=== PATIENT | male | born 1945 | race African-American/Black ===

== ENCOUNTER 2017-12-29 08:34 | Emergency (ER) | payer OTHER ==
[2017-12-29 08:42] VITALS: BMI 32.1
--- NOTE | 2017-12-29 09:19 | PDOC ---
History of Present Illness - General History Source: Patient Exam Limitations: No Limitations - History of Present Illness Initial Comments: 12/29/17 09:53 The patient is a 72 year old male with a significant PMH of renal disease ( dialysis T,Th,S), HTN, diabetes, and Coumadin use who presents to the emergency department with a food impaction beginning approximately yesterday afternoon. The patient reports eating a chicken salad yesterday and getting some chicken stuck in his esophagus. He reports he feels like he eats too fast. He reports associated nausea and vomiting with his food bolus. He denies chest pain or shortness of breath, but notes he feels the bolus stuck in his esophagus. He reports spitting up pinkish fluid since yesterday. The patient also notes he hasnt been speaking as clearly since yesterday. The patient has had a similar episode of food impaction about 2 years ago which required surgical intervention by Dr. Schneider on 02/09/2016. The patient denies chest pain, shortness of breath, headache and dizziness. Denies fever, chills, diarrhea and constipation. Denies dysuria, frequency, urgency and hematuria. Allergies: NKDA Past surgical history: Food impaction removal (02/09/2016). Social history: No reported cigarette, alcohol, or drug use. PCP: Dr. Narinder Can <Ángel Allison - Last Filed: 12/29/17 16:55> <Annamarie Morin - Last Filed: 01/01/18 12:50> - General Chief Complaint: Foreign Body (FB) Stated Complaint: CHOKING Time Seen by Provider: 12/29/17 09:17 Past History <Ángel Allison - Last Filed: 12/29/17 16:55> - Past Medical History Anemia: No Asthma: No Cancer: No Cardiac Disorders: Yes (TIA;RECURRENT A-FIB) CVA: No COPD: No CHF: No DVT: No Dementia: No Diabetes: Yes Dialysis: Yes (lt arm fistula, hd ,tu,thr,sat) GI Disorders: Yes (DYSPHAGIA,H/O ESOPHAGEAL FOOD DISIMPACTION) Disorders: No (BPH) HTN: Yes Hypercholesterolemia: Yes Liver Disease: No Seizures: No Thyroid Disease: No - Surgical History Abdominal Surgery: No Appendectomy: No Cardiac Surgery: No Cholecystectomy: No Lung Surgery: No Neurologic Surgery: No Orthopedic Surgery: No - Suicide/Smoking/Psychosocial Hx Smoking Status: Yes Smoking History: Never smoked Have you smoked in the past 12 months: No Number of Cigarettes Smoked Daily: 0 If you are a former smoker, when did you quit?: Over 1 years ago Information on smoking cessation initiated: No Hx Alcohol Use: No Drug/Substance Use Hx: No Substance Use Type: None Hx Substance Use Treatment: No <Annamarie Morin - Last Filed: 01/01/18 12:50> - Past Medical History Allergies/Adverse Reactions: Allergies Allergy/AdvReac Type Severity Reaction Status Date / Time No Known Drug Allergies Allergy Unknown Verified 12/29/17 08:37 Home Medications: Ambulatory Orders Dutasteride [Avodart] 0.5 mg PO DAILY #0 capsule 01/05/14 Sevelamer Carbonate [Renvela -] 800 mg PO TID #0 tab 01/05/14 Simvastatin [Zocor -] 10 mg PO HS #0 tablet 01/05/14 Pantoprazole Sodium [Protonix -] 40 mg PO DAILY #30 tablet.ec 02/15/16 Warfarin Na [Coumadin -] 5 mg PO DAILY@1800 #7 tablet 02/15/16 Glipizide [Glipizide ER] 10 mg PO BID 07/14/16 Metoprolol Tartrate [Lopressor -] 50 mg PO BID 07/14/16 Cinacalcet HCl [Sensipar] 30 mg PO DAILY 12/29/17 Review of Systems - Review of Systems Able to Perform ROS?: Yes Comments:: 12/29/17 09:53 GENERAL/CONSTITUTIONAL: No fever or chills. No weakness. HEAD, EYES, EARS, NOSE AND THROAT: No change in vision. No ear pain or discharge. No sore throat. CARDIOVASCULAR: No chest pain or shortness of breath. RESPIRATORY: No cough, wheezing, or hemoptysis. GASTROINTESTINAL: (+) Food bolus in esophagus. (+) Nausea. (+) Vomiting with pinkish discharge. No diarrhea or constipation. GENITOURINARY: No dysuria, frequency, or change in urination. MUSCULOSKELETAL: No joint or muscle swelling or pain. No neck or back pain. SKIN: No rash NEUROLOGIC: No headache, vertigo, loss of consciousness, or change in strength/ sensation. ENDOCRINE: No increased thirst. No abnormal weight change. HEMATOLOGIC/LYMPHATIC: No anemia, easy bleeding, or history of blood clots. ALLERGIC/IMMUNOLOGIC: No hives or skin allergy. <Ángel Allison - Last Filed: 12/29/17 16:55> *Physical Exam - Vital Signs Last Vital Signs Temp Pulse Resp BP Pulse Ox 68 18 139/63 100 12/29/17 08:38 12/29/17 08:38 12/29/17 08:38 12/29/17 08:38 <Ángel Allison - Last Filed: 12/29/17 16:55> - Vital Signs Last Vital Signs Temp Pulse Resp BP Pulse Ox 68 18 139/63 100 12/29/17 08:38 12/29/17 08:38 12/29/17 08:38 12/29/17 08:38 - Physical Exam Comments: GENERAL: Awake, alert, and fully oriented. Appears anxious. HEAD: No signs of trauma EYES: PERRLA, EOMI, sclera anicteric, conjunctiva clear ENT: Auricles normal inspection, hearing grossly normal, nares patent, oropharynx clear without exudates. Moist mucosa NECK: Normal ROM, supple, no lymphadenopathy, JVD, or masses LUNGS: Breath sounds equal, clear to auscultation bilaterally. No wheezes, and no crackles HEART: Regular rate and rhythm, normal S1 and S2, no murmurs, rubs or gallops ABDOMEN: Soft, nontender, normoactive bowel sounds. No guarding, no rebound. No masses EXTREMITIES: Normal range of motion, no edema. No clubbing or cyanosis. No cords, erythema, or tenderness NEUROLOGICAL: Cranial nerves II through XII grossly intact. Normal gait. Motor and sensation intact. SKIN: Warm, Dry, normal turgor, no rashes or lesions noted. <Annamarie Morin - Last Filed: 01/01/18 12:50> Heart Score/ECG Review - ECG Impressions Comment:: EKG read 14:42- NSR with rate 70 bpm, no acute ST/T changes. +PVC. <Annamarie Morin - Last Filed: 01/01/18 12:50> ED Treatment Course - LABORATORY CBC & Chemistry Diagram: 12/29/17 09:24 12/29/17 09:24 <Ángel Allison - Last Filed: 12/29/17 16:55> - LABORATORY CBC & Chemistry Diagram: 12/29/17 09:24 12/29/17 09:24 <Annamarie Morin - Last Filed: 01/01/18 12:50> Medical Decision Making - Medical Decision Making Pt initially presented with voice changes, regurgitating intermittently, unable to eat. However, while awaiting labs and subsequently GI evaluation, he improved spontaneously. He was able to tolerate PO when Dr. Schneider arrived, stable for DC home. <Annamarie Morin - Last Filed: 01/01/18 12:50> *DC/Admit/Observation/Transfer - Attestations Scribe Attestion: 12/29/17 09:53 Documentation prepared by Ángel Allison, acting as medical staff coordinator for Annamarie Morin MD. <Ángel Allison - Last Filed: 12/29/17 16:55> - Discharge Dispostion Admit: No <Annamarie Moirn - Last Filed: 01/01/18 12:50> Diagnosis at time of Disposition: Dysphagia Qualifiers: Dysphagia type: unspecified Qualified Code(s): R13.10 - Dysphagia, unspecified - Discharge Dispostion Disposition: HOME Condition at time of disposition: Improved - Referrals Referrals: Narinder Can MD [Primary Care Provider] - - Patient Instructions Printed Discharge Instructions: Ste[employer] [facility] - Post Discharge Activity
[2017-12-29 10:09] LABS: HEMATOCRIT 32.5 % (35.4-49); HEMOGLOBIN 10.6 GM/dL (11.7-16.9); MCH 33.9 pg (25.7-33.7); MCHC 32.6 g/dl (32.0-35.9); MEAN PLT VOLUME 8.4 fl (7.5-11.1); RBC 3.13 M/mm3 (4.00-5.60); RDW 18.9 % (11.9-15.9)
[2017-12-29 10:12] LABS: WHITE BLOOD COUNT 20.5 K/mm3 (4.0-10.0)
[2017-12-29 10:25] LABS: INR 1.81 (0.82-1.09); PROTHROMBIN TIME (PATIENT) 20.5 SEC (9.98-11.88)
[2017-12-29 10:43] LABS: ALBUMIN 3.9 g/dl (3.4-5.0); ALK PHOS 116 U/L (45-117); ANION GAP 9 (8-16); BILIRUBIN,TOTAL 0.6 mg/dL (0.2-1.0); BLOOD UREA NITROGEN 39 mg/dL (7-18); CALCIUM 8.7 mg/dL (8.5-10.1); CHLORIDE 101 mmol/L (98-107); CO2 28 mmol/L (21-32); GLUCOSE,RANDOM 124 mg/dL (74-106); SGPT/ALT 18 U/L (12-78); SODIUM 138 mmol/L (136-145); TOT PROT 7.9 g/dl (6.4-8.2)
[2017-12-29 11:27] LABS: PLATELET COUNT 220 K/MM3 (134-434); PLATELET ESTIMATE ADEQUATE
[2017-12-29 13:09] LABS: CREATININE 8.6 mg/dL (0.7-1.3)
[2017-12-29 13:23] LABS: SGOT/AST 38 U/L (15-37)
--- NOTE | 2017-12-29 14:36 | CON.GI ---
Consult Consult Specialty:: GI Referred by:: Dr. Annamarie Morin Reason for Consultation:: Dysphagia: suspected food impaction - History of Present Illness Chief Complaint: I was having problems swallowing History of Present Illness: 72M presenting to the ER (taken by his ) for evaluation of difficulty swallowing. He tells me that after eating chicken salad (consisting of chicken breast, no bones) and salad, he began experiencing difficulty swallowing and kept bringing up secretions. He was unable to sleep and kept trying to make himself vomit. It persisted into the morning prompting his evaluation in the ER. He states getting to the ER around 8am and had been trying to make himself vomit, and for the last 3 hours he "feels fine". Mr. Morocho has a history of food impactions. One episode occurred remotely while the most recent occurred at [facility] 02/02: He underwent emergent EGD 02/08/16 at which time the esophagus was disimpacted. Post procedure he did have respiratory distress, was reintubated and had a prolonged hospitalization. He was treated for aspiration pneumonia. 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 He followed up in office 07/05 and underwent follow-up EGD and colonoscopy (for follow-up of a positive stool cologuard test) 07/14/16. EGD failed to reveal any significant pathology and colonoscopy led to the removal of a tubular adenoma. Biopsies of the distal esophagus failed to reveal evidence of eosinophilic esophagitis. He was advised to eat small portioned well chewed meals with avoidance of bulk meats and breads. He denies any chest pain, shortness of breath, abdominal pain, nausea. He was able to drink a cup of water as I evaluated him without difficulty and was able to speak in full sentences. - History Source History Provided By: Patient, Family Member Limitations to Obtaining History: No Limitations - Past Medical History METAL SORTER: Yes: TIA Cardio/Vascular: Yes: AFIB, HTN Gastrointestinal: Yes: Other (Tubular Adenoma (subcentimeter) removed 07/05, history of food impactions as in HPI) Renal/: Yes: Renal Failure, Hemodialysis (//Mon) - Past Surgical History Past Surgical History: Yes: AV Fistula/Graft (left arm) - Alcohol/Substance Use Hx Alcohol Use: Yes (quit 30 yrs prior) - Smoking History Smoking history: Former smoker (quit 30 + yrs prior) Have you smoked in the past 12 months: No Aproximately how many cigarettes per day: 0 If you are a former smoker, when did you quit?: Over 1 years ago - Social History Usual Living Arrangement: With Spouse ADL: Independent Occupation: Retired from [employer] of : [employer] History of Recent Travel: No Home Medications - Allergies Allergies/Adverse Reactions: Allergies Allergy/AdvReac Type Severity Reaction Status Date / Time No Known Drug Allergies Allergy Unknown Verified 12/29/17 08:37 - Home Medications Home Medications: Ambulatory Orders Dutasteride [Avodart] 0.5 mg PO DAILY #0 capsule 01/05/14 Sevelamer Carbonate [Renvela -] 800 mg PO TID #0 tab 01/05/14 Simvastatin [Zocor -] 10 mg PO HS #0 tablet 01/05/14 Pantoprazole Sodium [Protonix -] 40 mg PO DAILY #30 tablet.ec 02/15/16 Warfarin Na [Coumadin -] 5 mg PO DAILY@1800 #7 tablet 02/15/16 Glipizide [Glipizide ER] 10 mg PO BID 07/14/16 Metoprolol Tartrate [Lopressor -] 50 mg PO BID 07/14/16 Cinacalcet HCl [Sensipar] 30 mg PO DAILY 12/29/17 Family Disease History - Family Disease History Family Disease History: Other: Father (: 70's possible pancreatic cancer), Mother (: diabetic complications), Brother (2, 1 with Alzheimer's), Son (3, healthy) Other Family History: No family history of colorectal cancer or other GI malignancy Review of Systems - Review of Systems Constitutional: denies: Chills, Unintentional Wgt. Loss Cardiovascular: denies: Chest Pain Respiratory: denies: SOB Gastrointestinal: denies: Abdominal Pain, Rectal Bleeding Physical Exam-GI Vital Signs: Vital Signs Temperature Pulse Rate 68 12/29/17 08:38 Respiratory Rate 18 12/29/17 08:38 Blood Pressure 139/63 12/29/17 08:38 O2 Sat by Pulse Oximetry (%) 100 12/29/17 08:38 Constitutional: Yes: Calm Eyes: No: Sclera Icterus Cardiovascular: Yes: Regular Rate and Rhythm. No: Murmur Respiratory: Yes: CTA Bilaterally Gastrointestinal Inspection: No: Distention ...Auscultate: Yes: Normoactive Bowel Sounds ...Palpate: No: Hepatomegaly, Splenomegaly, Tenderness ...Percussion: No: Tympanitic Edema: No (Trace LE edema L>R) Neurological: Yes: Alert, Oriented Labs: CBC, BMP 12/29/17 09:24 12/29/17 09:24 INR, PTT INR 1.81 (0.82-1.09) H D 12/29/17 09:24 Imaging - Results X-ray: Report Reviewed Problem List - Problems (1) Dysphagia Assessment/Plan: Clincially Mr. Morocho if well appearing, maintaining his own secretions, speaking in full sentences and able to tolerate water challenge at bedside. Emergent endoscopy has been deferred at this time. I advised that for the next three days he should stay on a soft (mashed potato consistency) diet and should be maintained in the future (as was discussed previously) by having small portioned well chewed meals with avoidance of bulk meats and breads. I gave him my office information to arrange follow-up for the end of the month. Continue Protonix 40mg once daily for now. Code(s): R13.10 - DYSPHAGIA, UNSPECIFIED Qualifiers: Dysphagia type: unspecified Qualified Code(s): R13.10 - Dysphagia, unspecified (2) Leukocytosis Assessment/Plan: Patient with what appears to be chronic leukocytosis and macrocytosis Unclear if he has been evaluated by manager communication in the past but should be considered. Advised he discuss things further with his PMD Code(s): D72.829 - ELEVATED WHITE BLOOD CELL COUNT, UNSPECIFIED (3) Subtherapeutic anticoagulation Assessment/Plan: Discussed with Dr. Morin. Will need anticoagulation adjusted by PMD Code(s): Z51.81 - ENCOUNTER FOR THERAPEUTIC DRUG LEVEL MONITORING; Z79.01 - [facility] (CURRENT) USE OF ANTICOAGULANTS
[2017-12-29 14:58] VITALS: BP 118/59; PULSE 76
--- NOTE | 2017-12-30 08:53 | EKG ---
Test Reason : Blood Pressure : / mmHG Vent. Rate : 070 BPM Atrial Rate : 070 BPM P-R Int : 208 ms QRS Dur : 090 ms QT Int : 410 ms P-R-T Axes : 014 -32 044 degrees QTc Int : 442 ms SINUS RHYTHM WITH OCCASIONAL PREMATURE VENTRICULAR COMPLEXES LEFT AXIS DEVIATION ABNORMAL ECG WHEN COMPARED WITH ECG OF 11-FEB-2016 18:52, SINUS RHYTHM HAS REPLACED ATRIAL FIBRILLATION VENT. RATE HAS DECREASED BY [address] NO LONGER DEPRESSED IN ANTEROLATERAL LEADS Confirmed by DO GORE, NICK ([id number]) on 12/30/2017 8:52:22 AM Referred By: Confirmed By:NICK LEI MD
== END 2017-12-29 15:25 | disposition home or self-care (01) ==
LOC: JER 08:34
DX: R13.19 Other dysphagia (principal); D72.829 Elevated white blood cell count, unspecified; I48.91 Unspecified atrial fibrillation; Z79.01 Long term (current) use of anticoagulants; I12.0 Hypertensive chronic kidney disease with stage 5 chronic kidney disease or end stage renal disease; N18.6 End stage renal disease; N17.8 Other acute kidney failure; Z99.2 Dependence on renal dialysis; Z87.891 Personal history of nicotine dependence; E78.00 Pure hypercholesterolemia, unspecified
CPT/HCPCS: 36415; 71045-TC; 80053; 85025; 85610; 86850; 86900; 86901; 93005; 93010; 99284-25

== ENCOUNTER 2018-11-27 14:23 | Inpatient (IN) | payer OTHER ==
--- NOTE | 2018-11-27 14:59 | PDOC ---
History of Present Illness - General Chief Complaint: Shortness of Breath Stated Complaint: SOB Time Seen by Provider: 11/27/18 14:59 History Source: Patient Exam Limitations: No Limitations - History of Present Illness Initial Comments: 11/27/18 15:43 73 year old male with PMH CKD, HD (//), HTN, DM, atrial fibrillation on coumadin, TIA, dysphagia, BPH presented to ED for shortness of breath since today. Pt admitted to nonproductive cough, chills, sweats, nasal congestion x3 days. PT recieved all but the last 30 minutes of dialysis today, when he began to feel short of breath, then dialysis was stopped and he was sent to the ED. Pt denied chest pain, lower extremity swelling, abdominal pain, nausea, vomiting , diarrhea, fever. Pt stated x3 weeks ago his fistula became infected and bled, he had it replaced at [facility], and had a blood transfusion. Allergies: NKDA PCP: Dr. Can Past History - Past Medical History Allergies/Adverse Reactions: Allergies Allergy/AdvReac Type Severity Reaction Status Date / Time No Known Drug Allergies Allergy Unknown Verified 12/29/17 08:37 Home Medications: Ambulatory Orders Dutasteride [Avodart] 0.5 mg PO DAILY #0 capsule 01/05/14 Sevelamer Carbonate [Renvela -] 800 mg PO TID #0 tab 01/05/14 Simvastatin [Zocor -] 10 mg PO HS #0 tablet 01/05/14 Pantoprazole Sodium [Protonix -] 40 mg PO DAILY #30 tablet.ec 02/15/16 Glipizide [Glipizide ER] 10 mg PO BID 07/14/16 Metoprolol Tartrate [Lopressor -] 50 mg PO BID 07/14/16 Cinacalcet HCl [Sensipar] 30 mg PO DAILY 12/29/17 Warfarin Na [Coumadin -] 2.5 mg PO DAILY@1800 11/27/18 Anemia: No Asthma: No Cancer: No Cardiac Disorders: Yes (TIA;RECURRENT A-FIB) CVA: No COPD: No CHF: No DVT: No Dementia: No Diabetes: Yes Dialysis: Yes (lt arm fistula, hd ,tu,thr,sat) GI Disorders: Yes (DYSPHAGIA,H/O ESOPHAGEAL FOOD DISIMPACTION) Disorders: No (BPH) HTN: Yes Hypercholesterolemia: Yes Liver Disease: No Seizures: No Thyroid Disease: No - Surgical History Abdominal Surgery: No Appendectomy: No Cardiac Surgery: No Cholecystectomy: No Lung Surgery: No Neurologic Surgery: No Orthopedic Surgery: No - Suicide/Smoking/Psychosocial Hx Smoking Status: Yes Smoking History: Never smoked Have you smoked in the past 12 months: No Number of Cigarettes Smoked Daily: 0 If you are a former smoker, when did you quit?: Over 1 years ago Hx Alcohol Use: No Drug/Substance Use Hx: No Substance Use Type: None Hx Substance Use Treatment: No Review of Systems - Review of Systems Able to Perform ROS?: Yes Comments:: 11/27/18 15:48 General: admitted to chills/sweats. denied fever, generalized weakness. HEENT: admitted to nasal congestion. denied sore throat, rhinorrhea, ear pain. Heart: denied chest pain, palpitations, syncope, lower extremity swelling, diaphoresis. Respiratory: admitted to shortness of breath, cough. denied sputum production, hemoptysis. Abdomen: denied abdominal pain, nausea, vomiting, diarrhea, constipation, blood in stool. : denied dysuria, increased urinary frequency, hematuria, urinary incontinence , flank pain. Back: denied back pain. Musculoskeletal: denied joint pain, muscle pain, joint swelling. Neurological: denied headache, dizziness, numbness, tingling, weakness. Skin: denied rash, laceration, abrasion. *Physical Exam - Physical Exam Comments: 11/27/18 15:49 Constitutional: Well-nourished, Well-developed, appearing stated age. HEENT: head is normocephalic, atraumatic. EOMI. PERRLA. Neck: supple. Full ROM. Heart: regular rhythm. no murmurs, rubs or gallops. Lungs: crakles to left base. no rhonchi or wheezing. no stridor. Abdomen: soft, nontender. normal bowel sounds. no rebound, guarding, masses. Extremities: Peripheral pulses intact. No lower extremity edema. Neurological: CN 2-12 grossly intact. Moves all four extremities. Psych: awake, alert, oriented x3. Follows commands. Answers questions appropriately. Vital Signs - Vital Signs #3 Blood Pressure: 91/45 MAP: 60 BP Location: Right Arm Blood Pressure Position: Supine Pulse Rate: 75 Respiratory Rate: 18 ED Treatment Course - LABORATORY CBC & Chemistry Diagram: 11/27/18 15:50 11/27/18 18:35 Medical Decision Making - Medical Decision Making 11/27/18 15:54 73 year old male with above PMH presented to ED for SOB associated with nonproductive cough, chills, sweats, nasal congestion. Initial Vital Signs Temp Pulse Resp BP Pulse Ox 99.8 F H 91 H 22 H 111/54 L 96 11/27/18 15:01 11/27/18 15:01 11/27/18 15:01 11/27/18 15:01 11/27/18 15:01 Febrile - Pending rectal temp Borderline tachycardia. Tachypnea. Mild hypotension. No hypoxia on 2L. - SpO2 90% on room air. Labs ordered: CBC, CMP, troponin, blood cultures, UA/UC, VBG Medications ordered: O2 Imaging ordered: CXR EKG performed at 1533: rate 87, regular rhythm, left axis, QTc 476, 1st degree AV block, PAC, flattening T II, III, aVF, aVL. 11/27/18 16:14 CBC WBC 11.5 K/mm3 (4.0-10.0) H 11/27/18 15:50 RBC 3.01 M/mm3 (4.00-5.60) L 11/27/18 15:50 Hgb 10.5 GM/dL (11.7-16.9) L 11/27/18 15:50 Hct 30.7 % (35.4-49) L 11/27/18 15:50 MCV 101.8 fl (80-96) H 11/27/18 15:50 MCH 34.9 pg (25.7-33.7) H 11/27/18 15:50 MCHC 34.3 g/dl (32.0-35.9) 11/27/18 15:50 RDW 21.1 % (11.9-15.9) H 11/27/18 15:50 Plt Count 131 K/MM3 (134-434) L D 11/27/18 15:50 MPV 8.0 fl (7.5-11.1) 11/27/18 15:50 Absolute Neuts (auto) 8.3 K/mm3 (1.5-8.0) H 11/27/18 15:50 Neutrophils % 72.0 % (42.8-82.8) 11/27/18 15:50 Lymphocytes % 7.9 % (8-40) L 11/27/18 15:50 Monocytes % 18.9 % (3.8-10.2) H 11/27/18 15:50 Eosinophils % 0.8 % (0-4.5) 11/27/18 15:50 Basophils % 0.4 % (0-2.0) 11/27/18 15:50 Nucleated RBC % 0 % (0-0) 11/27/18 15:50 Mild leukocytosis with left shift. Mild macrocytic anemia, at baseline. Mild metabolic alkalosis. Ph 7.46. CXR report: cardiomegaly. mild congestion. 11/27/18 17:24 CMP Sodium 136 mmol/L (136-145) 11/27/18 15:36 Potassium 4.4 mmol/L (3.5-5.1) 11/27/18 15:36 Chloride 102 mmol/L (98-107) 11/27/18 15:36 Carbon Dioxide 27 mmol/L (21-32) 11/27/18 15:36 Anion Gap 7 MMOL/L (8-16) L 11/27/18 15:36 BUN 35 mg/dL (7-18) H 11/27/18 15:36 Creatinine 7.1 mg/dL (0.55-1.3) H 11/27/18 15:36 Creat Clearance w eGFR 7.63 (>60) 11/27/18 15:36 Random Glucose 46 mg/dL (74-106) L* 11/27/18 15:36 Lactic Acid 1.3 mmol/L (0.4-2.0) 11/27/18 15:50 Calcium 8.6 mg/dL (8.5-10.1) 11/27/18 15:36 Total Bilirubin 0.6 mg/dL (0.2-1) 11/27/18 15:36 AST 45 U/L (15-37) H 11/27/18 15:36 ALT 26 U/L (13-61) 11/27/18 15:36 Alkaline Phosphatase 99 U/L (45-117) 11/27/18 15:36 Troponin I 0.29 ng/ml (0.00-0.05) H 11/27/18 15:36 B-Natriuretic Peptide 23080.0 pg/ml (5-125) H 11/27/18 15:50 Total Protein 6.8 g/dl (6.4-8.2) 11/27/18 15:36 Albumin 2.9 g/dl (3.4-5.0) L 11/27/18 15:36 Normal electrolytes. Elevated Cr, Hx CKD/HD, at baseline. Hypoglycemia, pt given dextrose. Elevated troponin, Hx CKD/HD. Elevated BNP, Hx CKD/HD. Influenza testing negative. Rectal temp 100.6F Pt to be admitted for hypoxia, fever, mild fluid overload. Medications ordered: Vancomycin, Zosyn, Tylenol 11/27/18 20:45 Repeat troponin 1.26 Repeat EKG: rate 66, regular rhythm, left axis, 1st degree AV block, QTc 488, continued flattening of T in II, II, aVF, aVL, no large changes from prior. Medications ordered: ASA Pt reported no chest pain, improving shortness of breath. Dr. Palm paged. Vital Signs Pulse Rate 75 11/27/18 21:01 Respiratory Rate 18 11/27/18 21:01 Blood Pressure 91/45 L 11/27/18 21:01 O2 Sat by Pulse Oximetry (%) 100 11/27/18 21:01 Increasing hypotension. Pt is fluid overloaded. Will continue to monitor and hold fluids at this time. 11/27/18 21:07 Dr. Mendez paged. 11/27/18 21:[address] Mendez about the case, he recs: 1) ASA 325 mg 2) Plavix 300 mg 3) Lopressor 25 mg BID 4) ICU admission - Above one time doses ordered. 11/27/18 21:17 ICU paged. 11/27/18 21:[address] Palm about the updates. 11/27/18 21:38 Vital Signs Pulse Rate 75 11/27/18 21:38 Respiratory Rate 18 11/27/18 21:38 Blood Pressure 91/45 L 11/27/18 21:38 O2 Sat by Pulse Oximetry (%) 100 11/27/18 21:38 BP stable. Pt reported no chest pain. 11/27/18 21:51 I spoke with the ICU resident, who stated he will come down and evaluate the patient. 11/27/18 21:52 Pt signed out to Dr. Peterson, who will observe the patient while he is in the Emergency Department. *DC/Admit/Observation/Transfer Diagnosis at time of Disposition: Hypoxia, Leukocytosis, Fever, NSTEMI (non-ST elevated myocardial infarction) - Discharge Dispostion Condition at time of disposition: Stable Decision to Admit order: Yes - Referrals - Patient Instructions - Post Discharge Activity Vital Signs - Vital Signs Pulse Rate: 68 Respiratory Rate: 22 Blood Pressure: 98/58 BP Location: Right Arm Blood Pressure Position: Supine
--- NOTE | 2018-11-27 15:58 | PDOC ---
Attending Attestation - HPI HPI: 11/27/18 19:01 The patient is a 73 year old male with a significant past medical history of renal disease (dialysis TThSa, had 3 hrs of dialysis, removed 350ml of fluid), hypertension, diabetes, afib (on coumadin), hypercholesterolemia, TIA, and dysphagia who presents to the emergency department with shortness of breath since earlier today. The patient reports that he was at his dialysis treatment today when he began to experience his shortness of breath. He states that he was able to complete most of his dialysis just not the last 30 minutes. The patient also reports an associated non productive but congested sounding cough for 3 days as well as chills and sweats today. The patient endorses some lower extremity swelling the past few days. Denies any chest pain, abd pain, fever, chills, nausea, vomiting, diarrhea, constipation or urinary symptoms. The patient denies any other symptoms or complaints. Documentation prepared by Esvin Fleming, acting as paramedical aide for Dre Enrique MD. <Esvin Fleming - Last Filed: 11/27/18 19:01> - Resident Resident Name: Regina Terry - ED Attending Attestation I have performed the following: I have examined & evaluated the patient, The case was reviewed & discussed with the resident, I agree w/resident's findings & plan, Exceptions are as noted - Physicial Exam PE: 11/27/18 17:26 GENERAL: The patient is awake, alert, and fully oriented, Nontoxic - in no acute distress. HEAD: Normocephalic, atraumatic. EYES: extraocular movements intact, sclera anicteric, conjunctiva clear. ENT: Normal voice, Moist mucous membranes. NECK: Normal range of motion, supple LUNGS: Scattered rales diffusely left greater than right, HEART: Regular rate and rhythm, normal S1 and S2 without murmur, rub or gallop. ABDOMEN: Soft, nontender, normoactive bowel sounds. No guarding, no rebound. . No CVA tenderness EXTREMITIES: Normal range of motion, +1 pitting edema bilaterally in LE NEUROLOGICAL: No facial assymetry, Normal speech, moving all 4 ext spontaneusly and symmetrically PSYCH: Normal mood, normal affect. SKIN: Warm, Dry, normal turgor, - Critical Care Time Total Critical Care Time: 45 Critical Care Statement: The care of this patient involved high complexity decision making to prevent further life threatening deterioration of the patient 's condition and/or to evaluate & treat vital organ system(s) failure or risk of failure. - Medical Decision Making 11/27/18 15:58 73y hx of CKD(//, had almost complete dialysis today -30 min), HTN, DM, atrial fibrillation on coumadin, TIA, dysphagia, BPH, stents with a complaint of shortness of breath. The patient states that he's been coughing with congestion the past several days without any social or fevers, chest pain, nausea, vomiting, diaphoresis. It and does endorse some mild nasal congestion in addition to his cough. He was getting dialysis when he started feeling shortness of breath patient mentions that the dialysis staff thought his heart rate was also elevated at during this episode of shortness of breath. He feels better currently. The patient's vitals noted for hypoxia, low-grade fever. Differential for the patient's symptoms includes pneumonia, influenza, CHF, ckd , acs Will check labs will obtain chest x-ray EKG Will reassess 11/27/18 17:29 Chest x-ray suggestive of CHF trop borderline, may be due to his renal insufficiency as patient is febrile will give antibiotics as the patient is immunocompromised will admit for further management 11/27/18 20:46 2nd trop elevated, it is possible that his initial episoe of SOB may have beeen a minor cardiac event no cp currently feels sob improved relative to presentation - i nno clinical distress, resting in stretcher with bedsdie. awaiting repeat ekg will give asa will dw cards <Dre Enrique - Last Filed: 12/06/18 07:59> Heart Score/ECG Review - ECG Impressions Comment:: 11/27/18 17:30 Twelve-lead EKG was performed and reviewed by me. There is normal sinus rhythm with a normal rate. Rate of 87 First degree AV block Left axis deviation Nonspecific ST wave changes QTc interval of 476 <Dre Enrique - Last Filed: 12/06/18 07:59>
[2018-11-27 16:04] LABS: BASO % 0.4 % (0-2.0); EOS % 0.8 % (0-4.5); HEMATOCRIT 30.7 % (35.4-49); HEMOGLOBIN 10.5 GM/dL (11.7-16.9); LYMPH % 7.9 % (8-40); MCH 34.9 pg (25.7-33.7); MCHC 34.3 g/dl (32.0-35.9); MEAN CELL VOLUME 101.8 fl (80-96); MONO % 18.9 % (3.8-10.2); PLATELET COUNT 131 K/MM3 (134-434); RBC 3.01 M/mm3 (4.00-5.60); RDW 21.1 % (11.9-15.9); WHITE BLOOD COUNT 11.5 K/mm3 (4.0-10.0)
[2018-11-27 16:07] LABS: VENOUS PC02 42.5 mmHg (38-52); VENOUS PH 7.46 (7.32-7.42); VENOUS PO2 38.7 mmHg (28-48)
[2018-11-27 16:17] LABS: INR 3.6 (0.83-1.09)
[2018-11-27 16:49] LABS: ALBUMIN 2.9 g/dl (3.4-5.0); ALK PHOS 99 U/L (45-117); ANION GAP 7 MMOL/L (8-16); BILIRUBIN,TOTAL 0.6 mg/dL (0.2-1); BLOOD UREA NITROGEN 35 mg/dL (7-18); CALCIUM 8.6 mg/dL (8.5-10.1); CHLORIDE 102 mmol/L (98-107); CO2 27 mmol/L (21-32); CREATININE 7.1 mg/dL (0.55-1.3); POTASSIUM 4.4 mmol/L (3.5-5.1); SGOT/AST 45 U/L (15-37); SGPT/ALT 26 U/L (13-61); SODIUM 136 mmol/L (136-145); TOT PROT 6.8 g/dl (6.4-8.2)
[2018-11-27 17:02] LABS: GLUCOSE,RANDOM 46 mg/dL (74-106)
[2018-11-27] MEDS ORDERED: DEXTROSE 50%-WATER - 25 GM/50 ML VIAL IVPUSH ONE (17:02)
[2018-11-27] MEDS ORDERED: VANCOMYCIN 1,000 MG in DEXTROSE 5%-WATER - 250 ML IVPB ONE (17:28)
[2018-11-27] MEDS ORDERED: PIPERACILLIN/TAZOB 2.25 GM 2.25 GM in DEXTROSE 5%-WATER - 50 ML IVPB ONE (17:29)
[2018-11-27] MEDS ORDERED: ACETAMINOPHEN 1000 MG/100 ML VIAL (NON FORMULARY) IVPB ONE (17:29)
[2018-11-27 17:36] LABS: ANISOCYTOSIS 1+
[2018-11-27 20:02] LABS: ANION GAP 9 MMOL/L (8-16); BLOOD UREA NITROGEN 36 mg/dL (7-18); CALCIUM 8.3 mg/dL (8.5-10.1); CHLORIDE 101 mmol/L (98-107); CO2 26 mmol/L (21-32); GLUCOSE,RANDOM 158 mg/dL (74-106); POTASSIUM 3.7 mmol/L (3.5-5.1); SODIUM 136 mmol/L (136-145)
[2018-11-27 20:24] LABS: CREATININE 7.5 mg/dL (0.55-1.3)
[2018-11-27] MEDS ORDERED: ASPIRIN 81 MG CHEWABLE TABLETS PO ONE ×2 (20:26→20:53)
[2018-11-27] MEDS ORDERED: ASPIRIN 81 MG CHEWABLE TABLETS ONE ×2 (20:50→20:56)
[2018-11-27] MEDS ORDERED: CLOPIDOGREL BISULFATE 300 MG TABLET PO ONE (21:13)
[2018-11-27] MEDS ORDERED: METOPROLOL TARTRATE 25 MG TABLET (FP) PO ONE (21:13)
--- NOTE | 2018-11-27 21:15 | CON.CARD ---
Consult - History of Present Illness History of Present Illness: The patient is a 73 year old male with a significant past medical history of renal disease (dialysis TThSa, had 3 hrs of dialysis, removed 350ml of fluid), hypertension, diabetes, afib (on coumadin), hypercholesterolemia, TIA, and dysphagia who presents to the emergency department with shortness of breath since earlier today. The patient reports that he was at his dialysis treatment today when he began to experience his shortness of breath. He states that he was able to complete most of his dialysis just not the last 30 minutes. The patient also reports an associated non productive but congested sounding cough for 3 days as well as chills and sweats today. The patient endorses some lower extremity swelling the past few days. Denies any chest pain, abd pain, fever, chills, nausea, vomiting, diarrhea, constipation or urinary symptoms. The patient denies any other symptoms or complaints. 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 Cardio/Vascular: Yes: AFIB, HTN Gastrointestinal: Yes: Other (Tubular Adenoma (subcentimeter) removed 07/05, history of food impactions as in HPI) Renal/: Yes: Renal Failure, Hemodialysis (//Mon) - Past Surgical History Past Surgical History: Yes: AV Fistula/Graft (left arm) - Alcohol/Substance Use Hx Alcohol Use: No - Smoking History Smoking history: Never smoked Have you smoked in the past 12 months: No Aproximately how many cigarettes per day: 0 If you are a former smoker, when did you quit?: Over 1 years ago - Social History Usual Living Arrangement: With Spouse ADL: Independent Occupation: Retired from [employer] History of Recent Travel: No Home Medications - Allergies Allergies/Adverse Reactions: Allergies Allergy/AdvReac Type Severity Reaction Status Date / Time No Known Drug Allergies Allergy Unknown Verified 12/29/17 08:37 - Home Medications Home Medications: Ambulatory Orders Dutasteride [Avodart] 0.5 mg PO DAILY #0 capsule 01/05/14 Sevelamer Carbonate [Renvela -] 800 mg PO TID #0 tab 01/05/14 Simvastatin [Zocor -] 10 mg PO HS #0 tablet 01/05/14 Pantoprazole Sodium [Protonix -] 40 mg PO DAILY #30 tablet.ec 02/15/16 Glipizide [Glipizide ER] 10 mg PO BID 07/14/16 Metoprolol Tartrate [Lopressor -] 50 mg PO BID 07/14/16 Cinacalcet HCl [Sensipar] 30 mg PO DAILY 12/29/17 Warfarin Na [Coumadin -] 2.5 mg PO DAILY@1800 11/27/18 Family Disease History - Family Disease History Family Disease History: Other: Father (: 70's possible pancreatic cancer), Mother (: diabetic complications), Brother (2, 1 with Alzheimer's), Son (3, healthy) Vital Signs: Vital Signs Temperature 100.6 F H 11/27/18 16:02 Pulse Rate 75 11/27/18 21:13 Respiratory Rate 18 11/27/18 21:13 Blood Pressure 91/45 L 11/27/18 21:13 O2 Sat by Pulse Oximetry (%) 100 11/27/18 20:59 - Other Data Labs, Other Data: CBC, BMP 11/27/18 15:50 11/27/18 18:48 INR, PTT INR 3.60 (0.83-1.09) H 11/27/18 15:50 Troponin, BNP 11/27/18 11/27/18 11/27/18 15:36 15:50 18:35 Troponin I 0.29 H 1.26 H* B-Natriuretic Peptide 15013.0 H Troponin, BNP 11/27/18 11/27/18 11/27/18 15:36 15:50 18:35 Troponin I 0.29 H 1.26 H* B-Natriuretic Peptide 33855.0 H Imaging - Results EKG: Image Reviewed (sr 1 st degree avb,)
[2018-11-27] MEDS ORDERED: CLOPIDOGREL BISULFATE 300 MG TABLET ONE (21:19)
[2018-11-27] MEDS ORDERED: METOPROLOL TARTRATE 25 MG TABLET (FP) ONE (21:19)
--- NOTE | 2018-11-27 22:14 | PDOC ---
*Physical Exam - Vital Signs Last Vital Signs Temp Pulse Resp BP Pulse Ox 100.6 F H 75 18 91/45 L 100 11/27/18 16:02 11/27/18 21:53 11/27/18 21:53 11/27/18 21:53 11/27/18 20:59 - Physical Exam Comments: 11/27/18 22:01 Patient's care endorsed to me by Dr. Terry at the end of her shift. 73YOM presented with SOB onset while at HD; states more fluid than normal was taken off today. Patient admitted already, now awaiting ICU team evaluation and acceptance to the unit. ED Treatment Course - LABORATORY CBC & Chemistry Diagram: 12/06/18 06:00 12/05/18 18:15 - ADDITIONAL ORDERS Additional order review: Laboratory Results 11/27/18 11/27/18 11/27/18 15:50 15:50 15:50 PT with INR INR PTT (Actin FS) VBG pH 7.46 H POC VBG pCO2 42.5 POC VBG pO2 38.7 Mixed VBG HCO3 29.8 H Sodium Potassium Chloride Carbon Dioxide Anion Gap BUN Creatinine Creat Clearance w eGFR Random Glucose Lactic Acid 1.3 Calcium Total Bilirubin AST ALT Alkaline Phosphatase Troponin I B-Natriuretic Peptide 69556.0 H Total Protein Albumin 11/27/18 11/27/18 15:50 15:36 PT with INR 43.00 H INR 3.60 H PTT (Actin FS) 39.0 H VBG pH POC VBG pCO2 POC VBG pO2 Mixed VBG HCO3 Sodium 136 Potassium 4.4 Chloride 102 Carbon Dioxide 27 Anion Gap 7 L BUN 35 H Creatinine 7.1 H Creat Clearance w eGFR 7.63 Random Glucose 46 L* Lactic Acid Calcium 8.6 Total Bilirubin 0.6 AST 45 H ALT 26 Alkaline Phosphatase 99 Troponin I 0.29 H B-Natriuretic Peptide Total Protein 6.8 Albumin 2.9 L 11/27/18 15:50 RBC 3.01 L MCV 101.8 H MCHC 34.3 RDW 21.1 H MPV 8.0 Neutrophils % 72.0 Lymphocytes % 7.9 L Monocytes % 18.9 H Eosinophils % 0.8 Basophils % 0.4 - Medications Given in the ED: ED Medications Discontinued Medications Generic Name Dose Route Start Last Admin Trade Name Freq PRN Reason Stop Dose Admin Acetaminophen 1,000 mg 11/27/18 17:29 11/27/18 17:35 Ofirmev Injection - IVPB 11/27/18 17:30 1,000 mg ONCE ONE Administration Aspirin 162 mg 11/27/18 20:26 11/27/18 20:59 Asa - PO 11/27/18 20:27 Not Given ONCE ONE Aspirin 324 mg 11/27/18 20:53 11/27/18 20:55 Asa - PO 11/27/18 20:54 324 mg ONCE ONE Administration Clopidogrel Bisulfate 300 mg 11/27/18 21:13 11/27/18 21:24 Plavix - PO 11/27/18 21:14 300 mg ONCE ONE Administration Dextrose 25 gm 11/27/18 17:02 11/27/18 17:05 D50w (Vial) - IVPUSH 11/27/18 17:03 25 gm NOW ONE Administration Vancomycin HCl 1,000 mg/ 250 mls @ 166.667 mls/hr 11/27/18 17:28 11/27/18 17: 29 Dextrose IVPB 11/27/18 18:57 166.667 mls/hr ONCE ONE Administration Protocol Piperacillin Sod/Tazobactam 50 mls @ 100 mls/hr 11/27/18 17:29 11/27/18 19:33 Sod 2.25 gm/ Dextrose IVPB 11/27/18 17:58 100 mls/hr ONCE ONE Administration Protocol Metoprolol Tartrate 25 mg 11/27/18 21:13 11/27/18 21:24 Lopressor - PO 11/27/18 21:14 25 mg ONCE ONE Administration *DC/Admit/Observation/Transfer Diagnosis at time of Disposition: Hypoxia, Leukocytosis, Fever, NSTEMI (non-ST elevated myocardial infarction) - Discharge Dispostion Disposition: TRANSFER ACUTE CARE/OTHER HOSP Condition at time of disposition: Stable - Referrals - Patient Instructions - Post Discharge Activity
--- NOTE | 2018-11-27 22:41 | CONSULT ---
Consult Consult Specialty:: Pulm/CCM Referred by:: Dr. Palm Reason for Consultation:: NSTEMI w/ hypotension - History of Present Illness History of Present Illness: 73 M h/o ESRD on HD TThSa, HTN, DM, afib on coumadin, hypercholesterolemia, TIA , BPH and dysphagia initially p/w dizziness during dialysis. Patient stated that he could not tolerate the last half an hour of the HD session today in that he felt dizzy and short of breath. He also c/o worsening non-productive cough w/o fever/chills at home as well as worsening dysnpea on exertion. In the ED he's frebile and hypotensive with elevated troponin. Cardiology was consulted and recommended to give ASA 325 mg, Plavix 300 mg, Lopressor 25 mg BID. Denies chest pain, abd pain, headache, focal weakness, diarrhea, constipation. 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 Cardio/Vascular: Yes: AFIB, HTN Gastrointestinal: Yes: Other (Tubular Adenoma (subcentimeter) removed 07/05, history of food impactions as in HPI) Renal/: Yes: Renal Failure, Hemodialysis (//Mon) - Past Surgical History Past Surgical History: Yes: AV Fistula/Graft (left arm) - Alcohol/Substance Use Hx Alcohol Use: No - Smoking History Smoking history: Never smoked Have you smoked in the past 12 months: No Aproximately how many cigarettes per day: 0 If you are a former smoker, when did you quit?: Over 1 years ago - Social History Usual Living Arrangement: With Spouse ADL: Independent Occupation: Retired from [employer] History of Recent Travel: No Home Medications - Allergies Allergies/Adverse Reactions: Allergies Allergy/AdvReac Type Severity Reaction Status Date / Time No Known Drug Allergies Allergy Unknown Verified 12/29/17 08:37 - Home Medications Home Medications: Ambulatory Orders Dutasteride [Avodart] 0.5 mg PO DAILY #0 capsule 01/05/14 Sevelamer Carbonate [Renvela -] 800 mg PO TID #0 tab 01/05/14 Simvastatin [Zocor -] 10 mg PO HS #0 tablet 01/05/14 Pantoprazole Sodium [Protonix -] 40 mg PO DAILY #30 tablet.ec 02/15/16 Glipizide [Glipizide ER] 10 mg PO BID 07/14/16 Metoprolol Tartrate [Lopressor -] 50 mg PO BID 07/14/16 Cinacalcet HCl [Sensipar] 30 mg PO DAILY 12/29/17 Warfarin Na [Coumadin -] 2.5 mg PO DAILY@1800 11/27/18 Family Disease History - Family Disease History Family Disease History: Other: Father (: 70's possible pancreatic cancer), Mother (: diabetic complications), Brother (2, 1 with Alzheimer's), Son (3, healthy) Review of Systems - Review of Systems Constitutional: reports: Malaise, Weakness Eyes: reports: No Symptoms Cardiovascular: reports: Shortness of Breath. denies: Chest Pain Respiratory: reports: Cough, Exercise Intolerance, SOB, SOB on Exertion Gastrointestinal: reports: No Symptoms Genitourinary: reports: No Symptoms Musculoskeletal: reports: No Symptoms Physical Exam Vital Signs: Vital Signs Temperature 100.6 F H 11/27/18 16:02 Pulse Rate 75 11/27/18 21:53 Respiratory Rate 18 11/27/18 21:53 Blood Pressure 91/45 L 11/27/18 21:53 O2 Sat by Pulse Oximetry (%) 100 11/27/18 20:59 Constitutional: Yes: No Distress, Calm Cardiovascular: Yes: Pulse Irregular, S1, S2. No: JVD, Murmur Respiratory: Yes: Other (b/l basilar crackles) Gastrointestinal: Yes: Normal Bowel Sounds, Abdomen, Obese. No: Tenderness Edema: Yes Edema: LLE: 1+, RLE: 1+ Peripheral Pulses WNL: Yes Neurological: Yes: Alert, Oriented Labs: CBC, BMP 11/27/18 15:50 11/27/18 18:48 Imaging - Results X-ray: Report Reviewed, Image Reviewed EKG: Report Reviewed, Image Reviewed Assessment/Plan 73 M h/o ESRD on HD TThSa, HTN, DM, afib on coumadin, hypercholesterolemia, TIA , BPH and dysphagia initially p/w dizziness during dialysis later found to have NSTEMI w/ hypotension. CV NSTEMI: 1. Likely demand ischemia from hypotensive episodes; no significant EKG compared to prior, completely asymptomatic 2. plavix load 300mg once, ASA 325mg once, lopressor 25mg BID per cardiology 3. supratherapeutic INR. hold coumadin and trend INR 4. give lipitor 80mg once 5. trend trop 6. cont. asa, lipitor, bb tomorrow 7. cardiology onboard Hypotension: 1. likely 2/2 severe sepsis 2. hold all bp meds 3. MAP > 65, small volume fluid challenge if falls below 65 4. start pressor if fluid challenge unresponsive Afib: 1. rate controlled 2. hold coumadin due to supratherapeutic INR ID Severe sepsis (100.6F, RR 22, suspected PNA, SBP < 90) 1. likely 2/2 PNA 2. received vanc and zosyn in ED 3. will cont rocephin and azithromycin 4. small volume fluid challenge Renal ESRD on HD: 1. renal consult 2. electrolytes wnl 3. dose all meds renally BPH: 1. hold a1 jl due to hypotension Endo DM 1. SSI and BGM Dispo: admit to ICU for severe sepsis and NSTEMI Gilles Geronimo PGY3 ICU resident Visit type - Emergency Visit Emergency Visit: Yes ED Registration Date: 11/27/18 Care time: The patient presented to the Emergency Department on the above date and was hospitalized for further evaluation of their emergent condition. - New Patient This patient is new to me today: Yes Date on this admission: 11/27/18 - Critical Care Critical Care patient: Yes Total Critical Care Time (in minutes): 35 Critical Care Statement: The care of this patient involved high complexity decision making to prevent further life threatening deterioration of the patient 's condition and/or to evaluate & treat vital organ system(s) failure or risk of failure.
[2018-11-27] MEDS ORDERED: ATORVASTATIN CA 80 MG TABLET (FP) PO ONE (23:15)
[2018-11-28] MEDS ORDERED: cefTRIAXone SODIUM 1 GM VIAL ONE ×2 (00:11→09:30)
[2018-11-28] MEDS ORDERED: DEXTROSE 5%-WATER - 50 ML IVPB ONE ×3 (00:12→17:43)
[2018-11-28] MEDS ORDERED: CEFTRIAXONE 1 GM in DEXTROSE 5%-WATER - 50 ML IVPB SCH (01:00)
--- NOTE | 2018-11-28 02:21 | HP ---
Admitting History and Physical - Admission History of Present Illness: Pt is a 73 male w/ PMH significant for ESRD on HD(TIW), HTN, DM, afib on coumadin, hypercholesterolemia, TIA, BPH and dysphagia. Pt presented to the ER w /dizziness during dialysis. Patient stated that he could not tolerate the last half of the hr of the HD session. pt also complained of SOB and worsening of a non-productive cough w/o fever/chills. In the ER he was afrebile and hypotensive with elevated troponin. Pt denied any chest pain or palpitations. 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 Cardiovascular: Yes: AFIB, HTN, Hyperlipdemia Gastrointestinal: Yes: Other (Tubular Adenoma (subcentimeter) removed 07/05, Dysphagia) Renal/: Yes: Renal Failure, BPH, Hemodialysis (//Mon) - Past Surgical History Past Surgical History: Yes: AV Fistula/Graft (left arm) - Smoking History Smoking history: Never smoked Have you smoked in the past 12 months: No Aproximately how many cigarettes per day: 0 If you are a former smoker, when did you quit?: Over 1 years ago - Alcohol/Substance Use Hx Alcohol Use: No - Social History ADL: Independent Occupation: Retired from [employer] History of Recent Travel: No Home Medications - Allergies Allergies/Adverse Reactions: Allergies Allergy/AdvReac Type Severity Reaction Status Date / Time No Known Drug Allergies Allergy Unknown Verified 12/29/17 08:37 - Home Medications Home Medications: Ambulatory Orders Dutasteride [Avodart] 0.5 mg PO DAILY #0 capsule 01/05/14 Sevelamer Carbonate [Renvela -] 800 mg PO TID #0 tab 01/05/14 Simvastatin [Zocor -] 10 mg PO HS #0 tablet 01/05/14 Pantoprazole Sodium [Protonix -] 40 mg PO DAILY #30 tablet.ec 02/15/16 Glipizide [Glipizide ER] 10 mg PO BID 07/14/16 Metoprolol Tartrate [Lopressor -] 50 mg PO BID 07/14/16 Cinacalcet HCl [Sensipar] 30 mg PO DAILY 12/29/17 Warfarin Na [Coumadin -] 2.5 mg PO DAILY@1800 11/27/18 Family Disease History - Family Disease History Family History: Unremarkable Family Disease History: Other: Father (: 70's possible pancreatic cancer), Mother (: diabetic complications), Brother (2, 1 with Alzheimer's), Son (3, healthy) Review of Systems - Review of Systems Constitutional: reports: No Symptoms Eyes: reports: No Symptoms HENT: reports: No Symptoms Neck: reports: No Symptoms Cardiovascular: reports: Shortness of Breath Respiratory: reports: Cough, SOB Gastrointestinal: reports: No Symptoms Genitourinary: reports: No Symptoms Physical Examination Vital Signs: Vital Signs Temperature 98.2 F 11/27/18 23:02 Pulse Rate 67 11/28/18 01:00 Respiratory Rate 24 H 11/28/18 01:00 Blood Pressure 95/49 L 11/28/18 01:00 O2 Sat by Pulse Oximetry (%) 98 11/27/18 23:02 Constitutional: Yes: Well Nourished Neck: Yes: WNL, Supple Cardiovascular: Yes: WNL, Regular Rate and Rhythm Respiratory: Yes: WNL, Regular, CTA Bilaterally Gastrointestinal: Yes: WNL, Normal Bowel Sounds, Soft ...Rectal Exam: Yes: WNL Musculoskeletal: Yes: WNL Edema: No Neurological: Yes: WNL, Alert, Oriented ...Motor Strength: WNL Labs: CBC, BMP 11/27/18 15:50 11/27/18 18:48 Problem List - Problems (1) Sepsis Assessment/Plan: ?Due to asp pneumonia Follow cultures Hypotensin due to sepsis ICU monitoring Cont IV antibxs ID consult Code(s): A41.9 - SEPSIS, UNSPECIFIED ORGANISM (2) Respiratory distress Assessment/Plan: Admit to ICU for close monitoring Pulmonary Consult ?Due to sepsis Follow cultures Code(s): R06.00 - DYSPNEA, UNSPECIFIED (3) Elevated troponin Assessment/Plan: Due to demand ischemia from sepsis? However pt given plavix/asa/BB Trend troponin Check echo Cardio consult Code(s): R74.8 - ABNORMAL LEVELS OF OTHER SERUM ENZYMES (4) HTN (hypertension) Assessment/Plan: Bp slightly hypotensive Cont to monitor Code(s): I10 - ESSENTIAL (PRIMARY) HYPERTENSION (5) HLD (hyperlipidemia) Assessment/Plan: Cont lipitor Code(s): E78.5 - HYPERLIPIDEMIA, UNSPECIFIED (6) Paroxysmal A-fib Assessment/Plan: Heart rate controlled Coumadin on hold due to supratherapeutic INR Cont to monitor daily pt/inr Code(s): I48.0 - PAROXYSMAL ATRIAL FIBRILLATION (7) End stage renal disease on dialysis Assessment/Plan: Dialysis as per renal Cont renvela/sensipar Code(s): N18.6 - END STAGE RENAL DISEASE; Z99.2 - DEPENDENCE ON RENAL DIALYSIS (8) Diabetes Assessment/Plan: Cont sliding scale w/ coverage Code(s): E11.9 - TYPE 2 DIABETES MELLITUS WITHOUT COMPLICATIONS (9) BPH (benign prostatic hyperplasia) Code(s): N40.0 - BENIGN PROSTATIC HYPERPLASIA WITHOUT LOWER URINRY TRACT SYMP
[2018-11-28 07:44] LABS: BASO % 0.4 % (0-2.0); EOS % 1.2 % (0-4.5); HEMATOCRIT 32.5 % (35.4-49); HEMOGLOBIN 11.2 GM/dL (11.7-16.9); LYMPH % 5.2 % (8-40); MCH 35.4 pg (25.7-33.7); MCHC 34.4 g/dl (32.0-35.9); MEAN CELL VOLUME 102.7 fl (80-96); MEAN PLT VOLUME 7.9 fl (7.5-11.1); MONO % 17.2 % (3.8-10.2); PLATELET COUNT 136 K/MM3 (134-434); RBC 3.17 M/mm3 (4.00-5.60); WHITE BLOOD COUNT 10.2 K/mm3 (4.0-10.0)
[2018-11-28 07:49] LABS: INR 3.51 (0.83-1.09); PROTHROMBIN TIME (PATIENT) 41.9 SEC (9.7-13.0)
[2018-11-28 07:52] LABS: ACTIVATED PTT 38.6 SECONDS (25.2-36.5)
[2018-11-28 07:58] LABS: ALBUMIN 2.9 g/dl (3.4-5.0); ALK PHOS 103 U/L (45-117); ANION GAP 8 MMOL/L (8-16); BILIRUBIN,TOTAL 0.5 mg/dL (0.2-1); BLOOD UREA NITROGEN 44 mg/dL (7-18); CALCIUM 8.7 mg/dL (8.5-10.1); CHLORIDE 98 mmol/L (98-107); CO2 30 mmol/L (21-32); GLUCOSE,RANDOM 66 mg/dL (74-106); MAGNESIUM 2.4 mg/dL (1.8-2.4); PHOSPHOROUS 3.6 mg/dL (2.5-4.9); POTASSIUM 4.2 mmol/L (3.5-5.1); SGOT/AST 42 U/L (15-37); SGPT/ALT 31 U/L (13-61); SODIUM 135 mmol/L (136-145); TOT PROT 6.8 g/dl (6.4-8.2)
[2018-11-28 08:29] LABS: CREATININE 8.5 mg/dL (0.55-1.3)
--- NOTE | 2018-11-28 08:39 | CON.CARD ---
Cardiology Consult (text) - Consultation Consultation Note: Consult Dictated IMP: ESRD on HD Fever, SIRS possible early sepsis- possible PNA, ?infected fistula Prior CVA, PAF on warfarin + TnI: Suspect demand ischemia secondary to infection REC: 1. Follow cultures, treat underlying infection; abx as per ICU team and PMD 2. Echo to assess EF 3. To continue ASA, beta jl, statin, supplimental O2 4. INR 2-3 5. Once infectious source identified and treated, will need ischemic evaluation. 6. Will reach out to Dr. Laboy at [facility] for further info regarding his past cardiac hx Will follow Thank you.
--- NOTE | 2018-11-28 09:11 | CONS ---
DATE OF CONSULTATION: 11/28/2018 REQUESTED BY: Annamarie Palm MD REASON FOR CONSULTATION: Consultation is requested for elevated troponin. HISTORY OF PRESENT ILLNESS: The patient is a 73-year-old male with past medical history of endstage renal disease, on hemodialysis Tuesdays, and Saturdays, hypertension, diabetes, paroxysmal atrial fibrillation, on Coumadin, prior TIA, dysphagia and prior history of aspiration pneumonia, prior history of AV fistula infection, status post replacement, presented to the emergency room for cough, chills, sweats and nasal congestion for several days. While at dialysis yesterday he began to feel short of breath and was sent to the emergency department for further evaluation. In the ER he was found to be relatively hypotensive with a systolic blood pressure in the 90s, febrile to 100.6 and initially borderline tachycardic. Blood cultures were taken and he was treated empirically with IV antibiotics with ceftriaxone and azithromycin. His white count is elevated at 11.5, INR mildly elevated at 3.6 and his troponin levels have been elevated: 1.6, 2.54, 3.63 with a normal CK. Influenza swab was negative. He was seen and examined this morning in the ICU. He denies chest pain, chest tightness. He has had some mild chronic dyspnea on exertion and a cough over the last few days. He denies pleuritic chest pain, denies abdominal pain. Denies palpitations. Currently he is in normal sinus rhythm. PAST MEDICAL HISTORY: Is as above. He states his left AV fistula recently became infected and had to be replaced, he has a right-sided dialysis catheter in the right subclavian. ALLERGIES: None. ACTIVE MEDICATIONS: Include aspirin 81 mg daily, Lipitor 10 mg at bedtime, azithromycin, ceftriaxone, Sensipar, Plavix 75 mg daily - should be noted he received a 300-mg load in the emergency department, insulin sliding scale, metoprolol 25 mg p.o. b.i.d., Protonix 40 mg p.o. daily and Renvela. PAST SURGICAL HISTORY: He denies any previous surgeries. FAMILY HISTORY: Noncontributory to this presentation. SOCIAL HISTORY: Denies smoking, alcohol or illicit drugs. He identifies Dr. Rick Laboy as his primary gem expert at [facility]. PHYSICAL EXAMINATION:General: He is alert and oriented. Vital Signs: Current temperature is 98.2, T-max 100.6, pulse 64, in sinus rhythm, blood pressure now 93/50, respiratory rate 26, O2 saturation is 98% on 2 L. HEENT: He is anicteric. Neck: There were no carotid bruits, no JVD. Heart: Regular with no murmurs auscultated. There is a right subclavian hemodialysis catheter and a left-sided AV fistula. Chest: Revealed no active wheezing. Decreased breath sounds on the right with rales at the left base. Abdomen: Soft, nontender, without rebound or guarding. Extremities: Had no edema. His 12-lead ECG showed normal sinus rhythm at 87 beats per minute with APCs, leftward axis and nonspecific ST changes. Blood cultures are pending. Chest x-ray showed cardiomegaly, perhaps mild congestion, no discrete infiltrate. LABORATORIES: White count 11.5, hemoglobin 10.5, platelets 131. INR 3.5, mildly supratherapeutic. Sodium 135, potassium 4.2, BUN 44, creatinine 8.5. LFTs were essentially normal. CK 248, 210. Initial troponin 1.26, 2.5, 3.63. Echocardiogram is pending. Telemetry has shown normal sinus rhythm thus far. IMPRESSION: 1. Endstage renal disease, on hemodialysis. 2. Fever, systemic inflammatory response syndrome, possible early sepsis with source at this time unclear: Possible pneumonia, ? infected fistula, ? urinary tract infection. 3. Prior cerebrovascular accident, paroxysmal atrial fibrillation, on warfarin. 4. Elevated troponin: Suspect demand ischemia secondary to sepsis/infection. RECOMMENDATIONS: 1. Follow cultures, treat underlying infection: Antibiotics as per ICU team and PMD. 2. Echocardiogram for EF assessment. 3. To continue medical therapy for suspected underlying coronary disease with aspirin, beta jl, statin, supplemental O2. Continue telemetry. 4. Maintain INR 2 to 3 for his history of PAF. 5. Once the infectious source is identified and treated/cultures negative will need ischemic evaluation. 6. Will reach out to Dr. Laboy at [facility] to investigate his previous cardiac history and obtain further details. Will follow. Thank you for the consultation. SHAHNAZ PALACIOS M.D. [id number]
--- NOTE | 2018-11-28 09:19 | PN ---
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 one week back started coughing yesterday at HD he developed SOB during the end of HD chills at home no nausea or vomiting temp 100.6 in ED given vanco/zosyn in ED influenza antigen is negative (30% false negative rate) cxray read as normal but I question right perihilar/basilar infiltrate Hypoxia and fever with cough pneumonia- ?HAP, ?viral repeat cxray now zosyn for HAP prolonged qt- can add doxycycline if repeat cxray shows pneumonia urinary antigens now vanco "on board"- level in am empiric tamiflu adjusted for ESRD resp virus pcr panel rsv antigen ?infected AVF- will await nephrology evaluation for details as patient is unaware of details of his admission +troponins- f/u per cardiology diabetes 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
[2018-11-28] MEDS ORDERED: OSELTAMIVIR PHOSPHATE 30 MG CAPSULE PO ONE (09:23)
[2018-11-28] MEDS ORDERED: PIPERACILLIN/TAZOB 2.25 GM 2.25 GM in DEXTROSE 5%-WATER - 50 ML IVPB ONE (09:26)
[2018-11-28] MEDS ORDERED: DEXTROSE 5%-WATER - 100 ML IVPB ONE (09:30)
[2018-11-28] MEDS: SEVELAMER CARBONATE 800 MG TAB (FP) PO SCH ×3 (09:36→18:18)
[2018-11-28] MEDS: CINACALCET HCL 30 MG TAB (FP) PO SCH (09:36)
[2018-11-28] MEDS: CLOPIDOGREL BISULFATE 75 MG TABLET (FP) PO SCH (09:36)
[2018-11-28] MEDS: METOPROLOL TARTRATE 25 MG TABLET (FP) PO SCH ×2 (09:36→22:05)
[2018-11-28] MEDS: ASPIRIN 81 MG CHEWABLE TABLETS PO SCH (09:36)
[2018-11-28] MEDS: PANTOPRAZOLE 40 MG TABLET (FP) PO SCH (09:36)
[2018-11-28] MEDS ORDERED: METOPROLOL TARTRATE 50 MG TABLET (FP) PO SCH (10:00)
[2018-11-28] MEDS ORDERED: AZITHROMYCIN IVPB 500 MG in DEXTROSE 5%-WATER - 250 ML IVPB SCH (10:00)
[2018-11-28] MEDS ORDERED: AZITHROMYCIN IVPB 500 MG/250 ML D5W PRE-DOCKED IVPB SCH (10:00)
[2018-11-28] MEDS ORDERED: PIPERACILLIN/TAZOBACTAM 2.25 GM VIAL IVPB ONE ×2 (10:37→17:43)
[2018-11-28 10:49] LABS: URINE APPEARANCE CLOUDY; URINE BILIRUBIN NEGATIVE (<2.0 mg/dL); URINE COLOR YELLOW; URINE GLUCOSE (UA) NEGATIVE (NEGATIVE); URINE KETONE NEGATIVE (NEGATIVE); URINE LEUK ESTERASE 1+ (NEGATIVE); URINE NITRITE NEGATIVE (NEGATIVE); URINE PROTEIN 2+ (NEGATIVE); URINE UROBILINOGEN NEGATIVE mg/dL (0.2-1.0)
[2018-11-28] MEDS: INSULIN SLIDING SCALE (NOVOLOG) 1 VIAL SQ SCH ×4 (11:09→22:05)
[2018-11-28] MEDS ORDERED: PT OWN MED DRAWER 7, Y5N ONE (11:11)
[2018-11-28 11:12] LABS: EPI CELLS FEW /HPF (FEW); URINE BACTERIA FEW /hpf (NONE SEEN); URINE HYALINE CAST 1 /lpf; URINE MUCUS RARE
[2018-11-28] MEDS: MUPIROCIN 2% TOPICAL OINTMENT FOR DECOLONIZATION NS SCH ×2 (11:22→22:04)
--- NOTE | 2018-11-28 11:36 | CONSULT ---
Consult - text type - Consultation Consultation Note: Renal Consult for ESRD on HD This is a 73 year old gentleman with hx of ESRD on HD (TTS), Hypertension, DM, Afib on Coumadin, HLD, TIA, dysphagia who presented to the ED from outpatient dialysis with chills, productive cough and elevated HR at dialysis. Pt seen in the ICU. Is awake and alert. Pt was recently admitted to [facility] from 10/20 to 10/24 for AVF bleeding and infection. He had a catheter placed during that time and has been on IV Vancomycin with HD since then. Pt reports continued cough. No fevers. No chest pain, abd pain, N/V/D. S/p HD yesterday. Blood cultures from 10/25 negative. PMhx: as above Allergies: NKDA Family Hx: NC Social Hx: no T/A/D ROS: as per HPI Home Medications Medication Instructions Recorded Dutasteride [Avodart] 0.5 mg PO DAILY #0 capsule 01/05/14 Sevelamer Carbonate [Renvela -] 800 mg PO TID #0 tab 01/05/14 Simvastatin [Zocor -] 10 mg PO HS #0 tablet 01/05/14 Pantoprazole Sodium [Protonix -] 40 mg PO DAILY #30 tablet.ec 02/15/16 Glipizide [Glipizide ER] 10 mg PO BID 07/14/16 Metoprolol Tartrate [Lopressor -] 50 mg PO BID 07/14/16 Cinacalcet HCl [Sensipar] 30 mg PO DAILY 12/29/17 Warfarin Na [Coumadin -] 2.5 mg PO DAILY@1800 11/27/18 Vital Signs Temperature 101.6 F H 11/28/18 10:00 Pulse Rate 78 11/28/18 10:00 Respiratory Rate 20 11/28/18 10:00 Blood Pressure 128/70 11/28/18 10:00 O2 Sat by Pulse Oximetry (%) 98 11/27/18 23:02 Intake & Output 11/25/18 11/26/18 11/27/18 11/28/18 23:59 23:59 23:59 23:59 Intake Total 100 200 Output Total 3 Balance 100 197 Weight 88.11 kg 88.11 kg NAD awake and alert neck supple, No JVD RRR, No M/R + course BS, + rales soft NT/ND No LE edmea, clubbing or cyanoiss right sided IJ tunneled HD catheter left arm AVG + thrill 11/28/18 06:30 11/28/18 06:30 Laboratory Tests 11/27/18 11/27/18 11/27/18 09:45 15:36 18:35 Calcium Phosphorus Magnesium Troponin I 0.29 H 1.26 H* Albumin Urine Protein 2+ H Urine Blood 1+ H Ur Leukocyte Esterase 1+ H D Urine WBC (Auto) 48 Urine RBC (Auto) 5 11/28/18 11/28/18 00:10 06:30 Calcium 8.7 Phosphorus 3.6 Magnesium 2.4 Troponin I 2.54 H* 3.63 H* Albumin 2.9 L Urine Protein Urine Blood Ur Leukocyte Esterase Urine WBC (Auto) Urine RBC (Auto) Current Medications Aspirin (Asa -) 81 mg PO DAILY [facility] Last Admin: 11/28/18 09:36 Dose: 81 mg Atorvastatin Calcium (Lipitor -) 10 mg PO HS [facility] Chlorhexidine Gluconate (Hibiclens For Decolonization -) 1 applic TP HS [facility] Cinacalcet (Sensipar -) 30 mg PO DAILY [facility] Last Admin: 11/28/18 09:36 Dose: 30 mg Clopidogrel Bisulfate (Plavix -) 75 mg PO DAILY [facility] Last Admin: 11/28/18 09:36 Dose: 75 mg Insulin Aspart (Novolog Vial Sliding Scale -) 1 vial SQ [facility]; Protocol Last Admin: 11/28/18 11:09 Dose: Not Given Metoprolol Tartrate (Lopressor -) 25 mg PO BID [facility] Last Admin: 11/28/18 09:36 Dose: 25 mg Mupirocin (Bactroban Ointment (For Decolonization) -) 1 applic NS BID [facility] Stop: 12/03/18 09:59 Last Admin: 11/28/18 11:22 Dose: 1 applic Oseltamivir Phosphate (Tamiflu -) 30 mg PO TUTHSA [facility] Stop: 12/04/18 09:23 Pantoprazole Sodium (Protonix -) 40 mg PO DAILY [facility] Last Admin: 11/28/18 09:36 Dose: 40 mg Sevelamer Carbonate (Renvela -) 800 mg PO TIDCM [facility] Last Admin: 11/28/18 09:36 Dose: 800 mg 73 year old gentleman with hx of ESRD on HD (TTS), Hypertension, DM, Afib on coumadin, HLD, TIA, dysphagia who presented to the ED from outpatient dialysis with chills, productive cough and elevated HR at dialysis. #Chill r/o bacteremia #Productive cough r/o CHF vs infection #Rising Cardiac enzymes r/o ACS #ESRD on HD #Chronic Anemia #Renal Osteodystrophy will need to r/o bacteremia in pt with indwelling tunneled catheter blood cultures collected, no growth to date Continue empeic abx and anti-virals as per ID CXR shows congestion/fluid overload will plan on isolated UF today with goal of 2.5L removed will have traditional HD tomorrow with additional UF Cardiac enzymes up trending, ? etiology (EKG without ischemic changes) Cardiology consult, trend cardiac enzymes H/H stable, no BERNARDO needed at this time Continue renvela with meals, trend Phos levels. Thank you Will follow Shayne Johnson DO
--- NOTE | 2018-11-28 11:44 | PN ---
Teaching Attending Note Name of Resident: Isaiah Crum ATTENDING PHYSICIAN STATEMENT I saw and evaluated the patient. I reviewed the resident's note and discussed the case with the resident. I agree with the resident's findings and plan as documented. SUBJECTIVE: Pt seen and examined in the ICU. Denies shortness of breath or chest pain. + nonproductive cough. OBJECTIVE: Vital Signs Period Temp Pulse Resp BP Sys/Martel Pulse Ox Last 24 Hr 98 F-101.6 F 62-91 16-28 90-128/41-70 94-100 Intake & Output 11/25/18 11/26/18 11/27/18 11/28/18 23:59 23:59 23:59 23:59 Intake Total 100 200 Output Total 3 Balance 100 197 Weight 88.11 kg 88.11 kg Gen: NAD at rest Heart: RRR Lung: bibasilar rales Abd: soft, nontender Ext: no edema CBC, BMP 11/28/18 06:30 11/28/18 06:30 Active Medications Aspirin (Asa -) 81 mg PO DAILY [facility] Last Admin: 11/28/18 09:36 Dose: 81 mg Atorvastatin Calcium (Lipitor -) 10 mg PO HS [facility] Chlorhexidine Gluconate (Hibiclens For Decolonization -) 1 applic TP HS [facility] Cinacalcet (Sensipar -) 30 mg PO DAILY [facility] Last Admin: 11/28/18 09:36 Dose: 30 mg Clopidogrel Bisulfate (Plavix -) 75 mg PO DAILY [facility] Last Admin: 11/28/18 09:36 Dose: 75 mg Insulin Aspart (Novolog Vial Sliding Scale -) 1 vial SQ [facility]; Protocol Last Admin: 11/28/18 11:09 Dose: Not Given Metoprolol Tartrate (Lopressor -) 25 mg PO BID [facility] Last Admin: 11/28/18 09:36 Dose: 25 mg Mupirocin (Bactroban Ointment (For Decolonization) -) 1 applic NS BID [facility] Stop: 12/03/18 09:59 Last Admin: 11/28/18 11:22 Dose: 1 applic Oseltamivir Phosphate (Tamiflu -) 30 mg PO TUTHSA [facility] Stop: 12/04/18 09:23 Pantoprazole Sodium (Protonix -) 40 mg PO DAILY [facility] Last Admin: 11/28/18 09:36 Dose: 40 mg Sevelamer Carbonate (Renvela -) 800 mg PO TIDCM [facility] Last Admin: 11/28/18 09:36 Dose: 800 mg ASSESSMENT AND PLAN: r/o Pneumonia +RSV Severe Sepsis +Troponins likely Demand Ischemia ESRD on HD Paroxysmal Atrial Fibrillation BPH DM - continue antibiotics - f/u cultures - empiric tamiflu - HD per renal - trend cardiac enzymes - echocardiogram - rate control - continue anticoagulation to keep INR 2-3 - can monitor on telemetry if cardiac enzymes downtrending critical care time spent in reviewing chart, evaluating patient and formulating plan 35 min
--- NOTE | 2018-11-28 11:53 | PN ---
Physical Exam: SUBJECTIVE: Patient seen and examined at bedside. Denies CP, dizziness resolved , chills resolved, SOB improved, still having cough. Troponins rising as of this AM. OBJECTIVE: Vital Signs Period Temp Pulse Resp BP Sys/Martel Pulse Ox Last 24 Hr 98 F-101.6 F 62-91 16-28 90-128/41-70 94-100 GENERAL: A&Ox3, NAD HEAD: NC/AT EYES: PERRLA, EOMI, sclera anicteric, conjunctiva clear. No ptosis. ENT: MMM NECK: Trachea midline, full range of motion, supple. 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 SKIN: Warm, dry, normal turgor, no rashes or lesions noted Laboratory Results - last 24 hr 11/27/18 11/27/18 11/27/18 09:45 15:36 15:48 WBC RBC Hgb Hct MCV MCH MCHC RDW Plt Count MPV Absolute Neuts (auto) Neutrophils % Lymphocytes % Monocytes % Eosinophils % Basophils % Nucleated RBC % Anisocytosis PT with INR INR PTT (Actin FS) VBG pH POC VBG pCO2 POC VBG pO2 Mixed VBG HCO3 Sodium 136 Potassium 4.4 Chloride 102 Carbon Dioxide 27 Anion Gap 7 L BUN 35 H Creatinine 7.1 H Creat Clearance w eGFR 7.63 POC Glucometer Random Glucose 46 L* Lactic Acid Calcium 8.6 Phosphorus Magnesium Total Bilirubin 0.6 AST 45 H ALT 26 Alkaline Phosphatase 99 Creatine Kinase Creatine Kinase Index CK-MB (CK-2) Troponin I 0.29 H B-Natriuretic Peptide Total Protein 6.8 Albumin 2.9 L Urine Color Yellow Urine Appearance Cloudy Urine pH 6.0 Ur Specific [place] 1.017 Urine Protein 2+ H Urine Glucose (UA) Negative Urine Ketones Negative Urine Blood 1+ H Urine Nitrite Negative Urine Bilirubin Negative Urine Urobilinogen Negative Ur Leukocyte Esterase 1+ H D Urine WBC (Auto) 48 Urine RBC (Auto) 5 Ur Epithelial Cells Few Urine Bacteria Few Hyaline Casts 1 Urine Mucus Rare Influenza A (Rapid) Negative Influenza B (Rapid) Negative RSV Rapid 11/27/18 11/27/1811/27/19 15:50 15:50 15:50 WBC 11.5 H RBC 3.01 L Hgb 10.5 L Hct 30.7 L MCV 101.8 H MCH 34.9 H MCHC 34.3 RDW 21.1 H Plt Count 131 L D MPV 8.0 Absolute Neuts (auto) 8.3 H Neutrophils % 72.0 Lymphocytes % 7.9 L Monocytes % 18.9 H Eosinophils % 0.8 Basophils % 0.4 Nucleated RBC % 0 Anisocytosis 1+ PT with INR 43.00 H INR 3.60 H PTT (Actin FS) 39.0 H VBG pH 7.46 H POC VBG pCO2 42.5 POC VBG pO2 38.7 Mixed VBG HCO3 29.8 H Sodium Potassium Chloride Carbon Dioxide Anion Gap BUN Creatinine Creat Clearance w eGFR POC Glucometer Random Glucose Lactic Acid Calcium Phosphorus Magnesium Total Bilirubin AST ALT Alkaline Phosphatase Creatine Kinase Creatine Kinase Index CK-MB (CK-2) Troponin I B-Natriuretic Peptide Total Protein Albumin Urine Color Urine Appearance Urine pH Ur Specific [place] Urine Protein Urine Glucose (UA) Urine Ketones Urine Blood Urine Nitrite Urine Bilirubin Urine Urobilinogen Ur Leukocyte Esterase Urine WBC (Auto) Urine RBC (Auto) Ur Epithelial Cells Urine Bacteria Hyaline Casts Urine Mucus Influenza A (Rapid) Influenza B (Rapid) RSV Rapid 11/27/18 11/27/18 11/27/18 15:50 15:50 18:35 WBC RBC Hgb Hct MCV MCH MCHC RDW Plt Count MPV Absolute Neuts (auto) Neutrophils % Lymphocytes % Monocytes % Eosinophils % Basophils % Nucleated RBC % Anisocytosis PT with INR INR PTT (Actin FS) VBG pH POC VBG pCO2 POC VBG pO2 Mixed VBG HCO3 Sodium 136 Potassium 3.7 Chloride 101 Carbon Dioxide 26 Anion Gap 9 BUN 36 H Creatinine 7.5 H* Creat Clearance w eGFR 7.16 POC Glucometer Random Glucose 158 H Lactic Acid 1.3 Calcium 8.3 L Phosphorus Magnesium Total Bilirubin AST ALT Alkaline Phosphatase Creatine Kinase Creatine Kinase Index CK-MB (CK-2) Troponin I 1.26 H* B-Natriuretic Peptide 84744.0 H Total Protein Albumin Urine Color Urine Appearance Urine pH Ur Specific [place] Urine Protein Urine Glucose (UA) Urine Ketones Urine Blood Urine Nitrite Urine Bilirubin Urine Urobilinogen Ur Leukocyte Esterase Urine WBC (Auto) Urine RBC (Auto) Ur Epithelial Cells Urine Bacteria Hyaline Casts Urine Mucus Influenza A (Rapid) Influenza B (Rapid) RSV Rapid 11/27/18 11/27/18 11/28/18 18:48 19:30 00:10 WBC RBC Hgb Hct MCV MCH MCHC RDW Plt Count MPV Absolute Neuts (auto) Neutrophils % Lymphocytes % Monocytes % Eosinophils % Basophils % Nucleated RBC % Anisocytosis PT with INR INR PTT (Actin FS) VBG pH POC VBG pCO2 POC VBG pO2 Mixed VBG HCO3 Sodium Cancelled Potassium Cancelled Chloride Cancelled Carbon Dioxide Cancelled Anion Gap Cancelled BUN Cancelled Creatinine Cancelled Creat Clearance w eGFR Cancelled POC Glucometer [id number] Random Glucose Cancelled Lactic Acid Calcium Cancelled Phosphorus Magnesium Total Bilirubin AST ALT Alkaline Phosphatase Creatine Kinase 248 Creatine Kinase Index 1.4 CK-MB (CK-2) 3.7 H Troponin I 2.54 H* B-Natriuretic Peptide Total Protein Albumin Urine Color Urine Appearance Urine pH Ur Specific [place] Urine Protein Urine Glucose (UA) Urine Ketones Urine Blood Urine Nitrite Urine Bilirubin Urine Urobilinogen Ur Leukocyte Esterase Urine WBC (Auto) Urine RBC (Auto) Ur Epithelial Cells Urine Bacteria Hyaline Casts Urine Mucus Influenza A (Rapid) Influenza B (Rapid) RSV Rapid 11/28/18 11/28/18 11/28/18 06:30 06:30 06:30 WBC 10.2 H RBC 3.17 L Hgb 11.2 L Hct 32.5 L MCV 102.7 H MCH 35.4 H MCHC 34.4 RDW 21.0 H Plt Count 136 MPV 7.9 Absolute Neuts (auto) 7.8 Neutrophils % 76.0 Lymphocytes % 5.2 L D Monocytes % 17.2 H Eosinophils % 1.2 Basophils % 0.4 Nucleated RBC % 0 Anisocytosis PT with INR 41.90 H INR 3.51 H PTT (Actin FS) 38.6 H VBG pH POC VBG pCO2 POC VBG pO2 Mixed VBG HCO3 Sodium 135 L Potassium 4.2 Chloride 98 Carbon Dioxide 30 Anion Gap 8 BUN 44 H Creatinine 8.5 H* Creat Clearance w eGFR 6.20 POC Glucometer Random Glucose 66 L Lactic Acid Calcium 8.7 Phosphorus 3.6 Magnesium 2.4 Total Bilirubin 0.5 AST 42 H ALT 31 Alkaline Phosphatase 103 Creatine Kinase 210 Creatine Kinase Index 1.6 CK-MB (CK-2) 3.5 Troponin I 3.63 H* B-Natriuretic Peptide Total Protein 6.8 Albumin 2.9 L Urine Color Urine Appearance Urine pH Ur Specific [place] Urine Protein Urine Glucose (UA) Urine Ketones Urine Blood Urine Nitrite Urine Bilirubin Urine Urobilinogen Ur Leukocyte Esterase Urine WBC (Auto) Urine RBC (Auto) Ur Epithelial Cells Urine Bacteria Hyaline Casts Urine Mucus Influenza A (Rapid) Influenza B (Rapid) RSV Rapid 11/28/18 11/28/18 06:30 10:00 WBC RBC Hgb Hct MCV MCH MCHC RDW Plt Count MPV Absolute Neuts (auto) Neutrophils % Lymphocytes % Monocytes % Eosinophils % Basophils % Nucleated RBC % Anisocytosis PT with INR INR PTT (Actin FS) VBG pH POC VBG pCO2 POC VBG pO2 Mixed VBG HCO3 Sodium Potassium Chloride Carbon Dioxide Anion Gap BUN Creatinine Creat Clearance w eGFR POC Glucometer Random Glucose Lactic Acid Calcium Phosphorus Magnesium Total Bilirubin AST ALT Alkaline Phosphatase Creatine Kinase Creatine Kinase Index CK-MB (CK-2) Troponin I Cancelled B-Natriuretic Peptide Total Protein Albumin Urine Color Urine Appearance Urine pH Ur Specific [place] Urine Protein Urine Glucose (UA) Urine Ketones Urine Blood Urine Nitrite Urine Bilirubin Urine Urobilinogen Ur Leukocyte Esterase Urine WBC (Auto) Urine RBC (Auto) Ur Epithelial Cells Urine Bacteria Hyaline Casts Urine Mucus Influenza A (Rapid) Influenza B (Rapid) RSV Rapid Positive Active Medications Generic Name Dose Route Start Last Admin Trade Name Jarodq PRN Reason Stop Dose Admin Aspirin 81 mg 11/28/18 10:00 11/28/18 09:36 Asa - PO 81 mg DAILY [facility] Administration Atorvastatin Calcium 10 mg 11/28/18 22:00 Lipitor - PO HS [facility] Chlorhexidine Gluconate 1 applic 11/28/18 22:00 Hibiclens For Decolonization - TP HS [facility] Cinacalcet 30 mg 11/28/18 10:00 11/28/18 09:36 Sensipar - PO 30 mg DAILY [facility] Administration Clopidogrel Bisulfate 75 mg 11/28/18 10:00 11/28/18 09:36 Plavix - PO 75 mg DAILY [facility] Administration Insulin Aspart 1 vial 11/28/18 07:00 11/28/18 11:09 Novolog Vial Sliding Scale - SQ Not Given ACHS [facility] Protocol Metoprolol Tartrate 25 mg 11/28/18 10:00 11/28/18 09:36 Lopressor - PO 25 mg BID [facility] Administration Mupirocin 1 applic 11/28/18 10:00 11/28/18 11:22 Bactroban Ointment (For Decolonization) - NS 12/03/18 09:59 1 applic BID [facility] Administration Oseltamivir Phosphate 30 mg 11/29/18 09:24 Tamiflu - PO 12/04/18 09:23 TUTHSA [facility] Pantoprazole Sodium 40 mg 11/28/18 10:00 11/28/18 09:36 Protonix - PO 40 mg DAILY [facility] Administration Sevelamer Carbonate 800 mg 11/28/18 08:00 11/28/18 09:36 Renvela - PO 800 mg TIDCM [facility] Administration ASSESSMENT/PLAN: 73 y/o M w/ PMHx ESRD on HD T//, Afib on coumadin, DM, TIA, BPH, dysphagia, HTN, HLD, 1 m/a was treated w/ vancomycin at [facility] for infection of L AV fistula which was removed and underwent same-sided graft developed dizziness and SOB towards the end of HD yesterday, then on presentation in the ED was febrile, hypotensive, tachycardic. Had WBC 11.5, supratherapeutic INR, and troponemia. Serial troponins have continued rising, however no EKG changes. #CV -echo pending -cont ASA, Plavix, atorvastatin, Lopressor -hold warfarin until INR is therapeutic (currently 3.5) -trend troponins -Dr. Sharyn lane, will contact Dr. Laboy at [facility] for further info regarding his past cardiac hx #ID -Dr. Carlos following -Tx for HCAP -Vancomycin (trough is currently high), Zosyn, Tamiflu per renal parameters as per ID -f/u Cx -RSV+ -UA mildly positive, however confounded by oliguric/dialysis status #pulmonary -cont supplemental O2 #nephro -Dr. Johnson following -for UF today, HD tomorrow -cont sevelamer, cinacalcet #FEN -no IVF, fluid issues as per nephrology -monitor and correct electrolytes -renal diet #PPx -DVT: on warfarin but holding for correction of INR -GI: not indicated #code -full #dispo -transfer to tele when troponins are downtrending Visit type - Emergency Visit Emergency Visit: No - New Patient This patient is new to me today: Yes Date on this admission: 11/28/18 - Critical Care Critical Care patient: Yes Total Critical Care Time (in minutes): 40 Critical Care Statement: The care of this patient involved high complexity decision making to prevent further life threatening deterioration of the patient 's condition and/or to evaluate & treat vital organ system(s) failure or risk of failure.
[2018-11-28] MEDS ORDERED: SODIUM CHLORIDE 250 ML IV PRN ×2 (12:02→12:03)
--- NOTE | 2018-11-28 13:09 | EKG ---
Test Reason : Blood Pressure : / mmHG Vent. Rate : 066 BPM Atrial Rate : 066 BPM P-R Int : 242 ms QRS Dur : 092 ms QT Int : 466 ms P-R-T Axes : 027 -31 259 degrees QTc Int : 488 ms SINUS RHYTHM WITH 1ST DEGREE A-V BLOCK WITH PREMATURE ATRIAL COMPLEXES LEFT AXIS DEVIATION NONSPECIFIC ST AND T WAVE ABNORMALITY PROLONGED QT ABNORMAL ECG WHEN COMPARED WITH ECG OF 27-NOV-2018 15:33, FUSION COMPLEXES ARE NO LONGER PRESENT Confirmed by NICK LEI MD ([id number]) on 11/28/2018 1:08:58 PM Referred By: Confirmed By:NICK LEI MD
--- NOTE | 2018-11-28 13:10 | EKG ---
Test Reason : Blood Pressure : / mmHG Vent. Rate : 087 BPM Atrial Rate : 087 BPM P-R Int : 230 ms QRS Dur : 088 ms QT Int : 396 ms P-R-T Axes : 053 -31 -84 degrees QTc Int : 476 ms POOR DATA QUALITY, INTERPRETATION MAY BE ADVERSELY AFFECTED SINUS RHYTHM WITH 1ST DEGREE A-V BLOCK WITH FUSION COMPLEXES AND PREMATURE ATRIAL COMPLEXES LEFT AXIS DEVIATION NONSPECIFIC ST AND T WAVE ABNORMALITY PROLONGED QT ABNORMAL ECG WHEN COMPARED WITH ECG OF 29-DEC-2017 14:19, FUSION COMPLEXES ARE NOW PRESENT PREMATURE VENTRICULAR COMPLEXES ARE NO LONGER PRESENT PREMATURE ATRIAL COMPLEXES ARE NOW PRESENT NONSPECIFIC T WAVE ABNORMALITY NOW EVIDENT IN INFERIOR LEADS Confirmed by DO GORE, NICK ([id number]) on 11/28/2018 1:09:32 PM Referred By: Confirmed By:NICK LEI MD
[2018-11-28] MEDS ORDERED: ACETAMINOPHEN 325 MG TABLET (FP) PO ONE (13:55)
[2018-11-28] MEDS: ACETAMINOPHEN 325 MG TABLET (FP) PO PRN (14:02)
--- NOTE | 2018-11-28 14:20 | CONS ---
DATE OF CONSULTATION: 11/28/2018 REQUESTING PHYSICIAN: The hospitalist service. HISTORY OF PRESENT ILLNESS: This is a 73-year-old man with a history of diabetes, end-stage renal disease. He has been on dialysis for about 7 years via left AV fistula. About a month back, he was hospitalized at [facility] he thinks for about a week. At that time, he thinks he had an AV fistula infection. He does not know if he was bacteremic. He was discharged home. He is not sure if he is getting antibiotics on dialysis, but yesterday during dialysis, he became progressively more short of breath and was coughing and was sent to the emergency room. He reports shortness of breath, cough, and chills for about the last 5 days, as well. He reports having received an influenza vaccine this year. PAST MEDICAL HISTORY: Notable for diabetes, hypertension, coronary artery disease, hyperlipidemia, TIA, dysphagia. He has a history of end-stage renal disease. He is on dialysis. He now has a new permacath that was placed at [facility]. As well, he has, I think, some sort of revision of his AV fistula on the left arm. He has a history of atrial fibrillation on Coumadin. His coronary artery disease is followed by , senior specialist is Dr. oTvar. PAST SURGICAL HISTORY: Notable for permacath and the fistula. He denies any other surgeries. SOCIAL HISTORY: He lives at home with his . There are no sick contacts. 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 There is no history of any cigarette or substance use. FAMILY HISTORY: Is unremarkable. There is no history of any recent travel. REVIEW OF SYSTEMS: He notes nasal congestion and sweats and chills with cough and shortness of breath. He denies chest pain, abdominal pain, nausea, vomiting, diarrhea. He does make a little . PHYSICAL EXAMINATION General: He is awake and alert. Vital signs: His temperature is 98.4; maximum temperature was 100.6, pulse of 83, blood pressure 130/62, respiratory rate 19. HEENT: He is normocephalic. His eyes are anicteric. Neck: Supple. Permacath site is without any pain or tenderness. Left AV fistula site is without any tenderness or erythema. Heart: Regular rate and rhythm. Lungs: Have bilateral rhonchi throughout. Abdomen: Soft, nontender. Extremities: Without edema. DIAGNOSTIC DATA: Labs are notable for a white count of 10.2, hemoglobin 11.2, platelets are 136. Chemistries BUN 44, creatinine 8.5. Troponin of 3.63. Liver function tests normal. Urinalysis was notable for 48 white cells. Influenza screen done in the emergency room was negative. SUMMARY: 1. This is a 73-year-old man with hypoxia, fever, and cough, pneumonia possibly hospital acquired, possibly viral. The chest x-ray originally was read as normal, but I question whether he has right perihilar basilar infiltrate. He received vancomycin and Zosyn in the emergency room. Would continue Zosyn for hospital-acquired pneumonia. He has a prolonged QT. We can add doxycycline and follow up urinary antigens. Vancomycin is on board. Would get a level in the morning. Would treat him empirically with Tamiflu adjusted for end-stage renal disease. If the sensitivity of the influenza antigen is low, would check a respiratory virus PCR panel as well as an RSV antigen. 2. Possible infected arteriovenous fistula. Will await nephrology evaluation to get records regarding the details of his prior hospitalization as the patient is unaware. 3. Positive troponins. Follow up with Cardiology. Case was discussed at length with the ICU staff. DAVID MACHADO M.D. [id number]
--- NOTE | 2018-11-28 14:49 | ECHO ---
Name: DEREJE SUÁREZ Exam:Adult Echocardiogram Study Date: 11/28/2018 07:58 AM Age: 73 yrs Reason For Study: HYPOTENSION Height: 67 in Weight: 194 lb BSA: 2.0 m2 BP: 117/57 mmHg MMode/2D Measurements & Calculations IVSd: 1.2 cm Ao root diam: 3.1 cm LVIDd: 5.2 cm LA dimension: 4.8 cm LVIDs: 4.4 cm LVPWd: 1.0 cm EDV(Teich): 129.1 ml LAV (MOD-bp): 92.7 ml ESV(Teich): 90.0 ml Doppler Measurements & Calculations MV E max devin: 94.1 cm/sec MR max devin: 368.5 cm/sec MV dec time: 0.10 sec MR max P.5 mmHg TR max devin: 355.7 cm/sec Med Peak E' Devin: 5.7 cm/sec TR max P.8 mmHg Med E/e': 16.6 Lat Peak E' Devin: 8.8 cm/sec Lat E/e': 10.7 PI Vmax: 95.0 cm/sec Procedure A two-dimensional transthoracic echocardiogram with color flow and Doppler was performed. Left Ventricle The left ventricular size, thickness and function are normal. The left ventricular ejection fraction is normal. The left ventricular wall motion is normal. Right Ventricle The right ventricle is normal in size and function. Atria The left atrium is moderately dilated. The right atrium is moderately dilated. Mitral Valve There is mild mitral valve thickening. There is no mitral valve stenosis. There is moderate to severe mitral regurgitation. Tricuspid Valve There is mild tricuspid valve thickening. There is no tricuspid stenosis. There is moderate tricuspid regurgitation. Right ventricular systolic pressure is elevated at >60mmHg. Aortic Valve The aortic valve is normal in structure and function. No hemodynamically significant valvular aortic stenosis. Mild aortic regurgitation. Pulmonic Valve The pulmonic valve is not well visualized. Great Vessels The aortic root is normal size. Pericardium/Pleura There is no pericardial effusion. Interpretation Summary The left ventricular size, thickness and function are normal The left ventricular ejection fraction is normal. The left ventricular wall motion is normal. The left atrium is moderately dilated. The right atrium is moderately dilated. There is moderate to severe mitral regurgitation. Mild aortic regurgitation. There is moderate tricuspid regurgitation. Right ventricular systolic pressure is elevated at >60mmHg. MD fEra Coelho 11/28/2018 02:48 PM
[2018-11-28] MEDS ORDERED: DEXTROSE 50%-WATER - 25 GM/50 ML VIAL IVPUSH ONE (16:57)
[2018-11-28] MEDS ORDERED: DEXTROSE 50%-WATER 25 GM/50 ML DISP.SYRIN ONE (16:58)
[2018-11-28] MEDS: PIPERACILLIN/TAZOB 2.25 GM 2.25 GM in DEXTROSE 5%-WATER - 50 ML IVPB SCH (18:18)
[2018-11-28] MEDS ORDERED: ATORVASTATIN CA 10 MG TABLET (FP) PO SCH (22:00)
[2018-11-28] MEDS: CHLORHEXIDINE GLUCONATE 4% CLEANSER FOR DECOLONIZATION TP SCH (22:05)
[2018-11-28] MEDS: ATORVASTATIN CA 10 MG TABLET (FP) PO SCH (22:05)
[2018-11-29] MEDS ORDERED: PIPERACILLIN/TAZOBACTAM 2.25 GM VIAL IVPB ONE ×3 (01:50→17:44)
[2018-11-29] MEDS ORDERED: DEXTROSE 5%-WATER - 50 ML IVPB ONE ×3 (01:50→17:45)
[2018-11-29] MEDS: PIPERACILLIN/TAZOB 2.25 GM 2.25 GM in DEXTROSE 5%-WATER - 50 ML IVPB SCH ×3 (01:51→17:52)
[2018-11-29 05:59] LABS: BASO % 0.5 % (0-2.0); EOS % 1.8 % (0-4.5); HEMOGLOBIN 10.6 GM/dL (11.7-16.9); LYMPH % 8.8 % (8-40); MCH 33.2 pg (25.7-33.7); MCHC 32.1 g/dl (32.0-35.9); MEAN CELL VOLUME 103.5 fl (80-96); MEAN PLT VOLUME 7.8 fl (7.5-11.1); MONO % 17.6 % (3.8-10.2); NEUT % 71.3 % (42.8-82.8); PLATELET COUNT 137 K/MM3 (134-434); RBC 3.19 M/mm3 (4.00-5.60); RDW 20.9 % (11.9-15.9)
[2018-11-29 06:31] LABS: ANION GAP 8 MMOL/L (8-16); BLOOD UREA NITROGEN 55 mg/dL (7-18); CALCIUM 8.1 mg/dL (8.5-10.1); CHLORIDE 99 mmol/L (98-107); CO2 29 mmol/L (21-32); GLUCOSE,RANDOM 64 mg/dL (74-106); MAGNESIUM 2.3 mg/dL (1.8-2.4); POTASSIUM 4.6 mmol/L (3.5-5.1); SODIUM 136 mmol/L (136-145)
[2018-11-29 06:32] LABS: INR 3.2 (0.83-1.09); PROTHROMBIN TIME (PATIENT) 38.2 SEC (9.7-13.0)
[2018-11-29] MEDS: INSULIN SLIDING SCALE (NOVOLOG) 1 VIAL SQ SCH ×4 (06:45→22:10)
[2018-11-29 08:03] LABS: PHOSPHOROUS 3.8 mg/dL (2.5-4.9)
[2018-11-29] MEDS: SEVELAMER CARBONATE 800 MG TAB (FP) PO SCH ×3 (08:23→17:54)
--- NOTE | 2018-11-29 08:43 | PN ---
Progress Note, Physician Chief Complaint: febriled TELE: Sinus with APCs Denies chest pain. Echo: normal EF, moderate to severe MR and PHTN, normal RV fx - Current Medication List Current Medications: Active Medications Acetaminophen (Tylenol -) 650 mg PO Q4H PRN PRN Reason: FEVER Last Admin: 11/28/18 14:02 Dose: 650 mg Aspirin (Asa -) 81 mg PO DAILY [facility] Last Admin: 11/28/18 09:36 Dose: 81 mg Atorvastatin Calcium (Lipitor -) 10 mg PO HS [facility] Last Admin: 11/28/18 22:05 Dose: 10 mg Chlorhexidine Gluconate (Hibiclens For Decolonization -) 1 applic TP HS [facility] Last Admin: 11/28/18 22:05 Dose: 1 applic Cinacalcet (Sensipar -) 30 mg PO DAILY [facility] Last Admin: 11/28/18 09:36 Dose: 30 mg Clopidogrel Bisulfate (Plavix -) 75 mg PO DAILY [facility] Last Admin: 11/28/18 09:36 Dose: 75 mg Sodium Chloride (Normal Saline -) 250 mls @ 3,000 mls/hr IV PRN PRN PRN Reason: Hypotension during Dialysis Stop: 11/29/18 12:02 Sodium Chloride (Normal Saline -) 250 mls @ 3,000 mls/hr IV PRN PRN PRN Reason: Hypotension during Dialysis Stop: 11/29/18 12:03 Piperacillin Sod/Tazobactam (Sod 2.25 gm/ Dextrose) 50 mls @ 100 mls/hr IVPB Q8H-IV [facility]; Protocol Last Admin: 11/29/18 01:51 Dose: 100 mls/hr Insulin Aspart (Novolog Vial Sliding Scale -) 1 vial SQ ACHS [facility]; Protocol Last Admin: 11/29/18 06:45 Dose: Not Given Metoprolol Tartrate (Lopressor -) 25 mg PO BID [facility] Last Admin: 11/28/18 22:05 Dose: 25 mg Mupirocin (Bactroban Ointment (For Decolonization) -) 1 applic NS BID [facility] Stop: 12/03/18 09:59 Last Admin: 11/28/18 22:04 Dose: 1 applic Oseltamivir Phosphate (Tamiflu -) 30 mg PO TUTHSA [facility] Stop: 12/04/18 09:23 Pantoprazole Sodium (Protonix -) 40 mg PO DAILY [facility] Last Admin: 11/28/18 09:36 Dose: 40 mg Sevelamer Carbonate (Renvela -) 800 mg PO TIDCM [facility] Last Admin: 11/29/18 08:23 Dose: 800 mg - Objective Vital Signs: Vital Signs Temperature 99 F 11/29/18 06:00 Pulse Rate 73 11/29/18 08:00 Respiratory Rate 23 H 11/29/18 08:00 Blood Pressure 103/50 L 11/29/18 08:00 O2 Sat by Pulse Oximetry (%) 98 11/28/18 21:00 Constitutional: Yes: No Distress Eyes: Yes: Conjunctiva Clear Cardiovascular: Yes: Regular Rate and Rhythm Respiratory: Yes: Other (decreased breath sounds at bases) Gastrointestinal: Yes: Soft (nontender) Edema: No Neurological: Yes: Alert Labs: CBC, BMP 11/29/18 05:15 11/29/18 05:15 INR, PTT INR 3.20 (0.83-1.09) H 11/29/18 05:15 Laboratory Tests 11/28/18 11/29/18 11/29/18 13:05 05:15 05:15 WBC 10.0 Hgb 10.6 L Plt Count 137 INR Sodium 136 Potassium 4.6 BUN 55 H Creatinine 10.0 H* Phosphorus 3.8 Magnesium 2.3 Troponin I 3.13 H* 11/29/18 05:15 WBC Hgb Plt Count INR 3.20 H Sodium Potassium BUN Creatinine Phosphorus Magnesium Troponin I - ....Imaging EKG: Image Reviewed Assessment/Plan IMP: ESRD on HD Fever, SIRS possible early sepsis- possible PNA Prior CVA, PAF on warfarin + TnI: Suspect demand ischemia secondary to infection REC: 1. Follow cultures, treat underlying infection; abx as per ICU team and ID 2. Echo showed normal LVEF, moderate to severe MR and PHTN. 3. To continue ASA, beta jl, statin, supplimental O2 4. INR 2-3 (PAF) 5. Once infectious source identified and treated, will need ischemic evaluation. Will follow
[2018-11-29] MEDS ORDERED: OSELTAMIVIR PHOSPHATE 30 MG CAPSULE PO SCH (09:24)
[2018-11-29] MEDS: MUPIROCIN 2% TOPICAL OINTMENT FOR DECOLONIZATION NS SCH ×2 (09:42→21:14)
[2018-11-29] MEDS: METOPROLOL TARTRATE 25 MG TABLET (FP) PO SCH ×2 (09:43→21:07)
[2018-11-29] MEDS: PANTOPRAZOLE 40 MG TABLET (FP) PO SCH (09:43)
[2018-11-29] MEDS: ASPIRIN 81 MG CHEWABLE TABLETS PO SCH (09:43)
[2018-11-29] MEDS: CINACALCET HCL 30 MG TAB (FP) PO SCH (09:46)
[2018-11-29] MEDS: CLOPIDOGREL BISULFATE 75 MG TABLET (FP) PO SCH (10:20)
--- NOTE | 2018-11-29 12:26 | PN ---
Teaching Attending Note Name of Resident: Elvis Lee ATTENDING PHYSICIAN STATEMENT I saw and evaluated the patient. I reviewed the resident's note and discussed the case with the resident. I agree with the resident's findings and plan as documented. SUBJECTIVE: Pt seen and examined in the ICU. States he is feeling better. Blood pressure improving. No shortness of breath or chest pain. Fever curve trending down. OBJECTIVE: Vital Signs Period Temp Pulse Resp BP Sys/Martel Pulse Ox Last 24 Hr 98.1 F-103.2 F 68-83 17-23 100-139/50-72 98-98 Intake & Output 11/26/18 11/27/18 11/28/18 11/29/18 23:59 23:59 23:59 23:59 Intake Total 100 700 150 Output Total 3 Balance 100 697 150 Weight 88.11 kg 88.11 kg 88.167 kg Gen: NAD at rest Heart: RRR Lung: basilar rales Abd: soft, nontender Ext: no edema CBC, BMP 11/29/18 05:15 11/29/18 05:15 Active Medications Acetaminophen (Tylenol -) 650 mg PO Q4H PRN PRN Reason: FEVER Last Admin: 11/28/18 14:02 Dose: 650 mg Aspirin (Asa -) 81 mg PO DAILY [facility] Last Admin: 11/29/18 09:43 Dose: 81 mg Atorvastatin Calcium (Lipitor -) 10 mg PO HS [facility] Last Admin: 11/28/18 22:05 Dose: 10 mg Chlorhexidine Gluconate (Hibiclens For Decolonization -) 1 applic TP HS [facility] Last Admin: 11/28/18 22:05 Dose: 1 applic Cinacalcet (Sensipar -) 30 mg PO DAILY [facility] Last Admin: 11/29/18 09:46 Dose: 30 mg Clopidogrel Bisulfate (Plavix -) 75 mg PO DAILY [facility] Last Admin: 11/29/18 10:20 Dose: 75 mg Sodium Chloride (Normal Saline -) 250 mls @ 3,000 mls/hr IV PRN PRN PRN Reason: Hypotension during Dialysis Stop: 11/29/18 12:02 Sodium Chloride (Normal Saline -) 250 mls @ 3,000 mls/hr IV PRN PRN PRN Reason: Hypotension during Dialysis Stop: 11/29/18 12:03 Piperacillin Sod/Tazobactam (Sod 2.25 gm/ Dextrose) 50 mls @ 100 mls/hr IVPB Q8H-IV [facility]; Protocol Last Admin: 11/29/18 09:41 Dose: 100 mls/hr Insulin Aspart (Novolog Vial Sliding Scale -) 1 vial SQ ACHS [facility]; Protocol Last Admin: 11/29/18 11:50 Dose: Not Given Metoprolol Tartrate (Lopressor -) 25 mg PO BID [facility] Last Admin: 11/29/18 09:43 Dose: 25 mg Mupirocin (Bactroban Ointment (For Decolonization) -) 1 applic NS BID [facility] Stop: 12/03/18 09:59 Last Admin: 11/29/18 09:42 Dose: 1 applic Oseltamivir Phosphate (Tamiflu -) 30 mg PO TUTHSA [facility] Stop: 12/04/18 09:23 Last Admin: 11/29/18 09:42 Dose: 30 mg Pantoprazole Sodium (Protonix -) 40 mg PO DAILY [facility] Last Admin: 11/29/18 09:43 Dose: 40 mg Sevelamer Carbonate (Renvela -) 800 mg PO TIDCM [facility] Last Admin: 11/29/18 12:00 Dose: 800 mg ASSESSMENT AND PLAN: r/o Pneumonia +RSV Severe Sepsis +Troponins likely Demand Ischemia ESRD on HD Paroxysmal Atrial Fibrillation BPH DM - continue antibiotics - f/u cultures - empiric tamiflu - HD per renal - rate control - ASA, plavix - beta jl, statin - continue anticoagulation to keep INR 2-3 - can monitor on telemetry critical care time spent in reviewing chart, evaluating patient and formulating plan 35 min
--- NOTE | 2018-11-29 12:44 | PN ---
Physical Exam: ICU team SUBJECTIVE: Patient seen and examined at bed side , breathing is better , still have non productive cough but better. denies any fever, chills, chest pain or sob. had one BM YESTERDAY. OBJECTIVE: Vital Signs Period Temp Pulse Resp BP Sys/Martel Pulse Ox Last 24 Hr 98.1 F-103.2 F 68-84 15-23 100-139/50-72 98-98 GENERAL: AAOx3 in NAD HEAD: NC/AT EYES: PERRL, EOMI, ENT: MMM NECK: Trachea midline, full range of motion, supple. LUNGS: mild bibasilar crackles left more than right , no wheezes, HEART: SR with first degree av block , S1, S2 without murmur, rub or gallop. ABDOMEN: Soft, nontender, nondistended, normoactive bowel sounds, no guarding, no rebound, EXTREMITIES: 2+ pulses, warm, well-perfused, no edema. NEUROLOGICAL: no focal deficit . Normal speech, gait not observed. PSYCH: Normal mood, normal affect. SKIN: Warm, dry, normal turgor, Laboratory Results - last 24 hr 11/28/18 11/28/18 11/28/18 06:07 07:20 12:10 WBC RBC Hgb Hct MCV MCH MCHC RDW Plt Count MPV Absolute Neuts (auto) Neutrophils % Lymphocytes % Monocytes % Eosinophils % Basophils % Nucleated RBC % PT with INR INR Sodium Potassium Chloride Carbon Dioxide Anion Gap BUN Creatinine Creat Clearance w eGFR POC Glucometer 57.19648 84.25486 68.68599 Random Glucose Calcium Phosphorus Magnesium Troponin I Random Vancomycin 11/28/18 11/29/18 11/29/18 13:05 05:15 05:15 WBC 10.0 RBC 3.19 L Hgb 10.6 L Hct 33.0 L MCV 103.5 H MCH 33.2 MCHC 32.1 RDW 20.9 H Plt Count 137 MPV 7.8 Absolute Neuts (auto) 7.1 Neutrophils % 71.3 Lymphocytes % 8.8 D Monocytes % 17.6 H Eosinophils % 1.8 Basophils % 0.5 Nucleated RBC % 0 PT with INR INR Sodium Potassium Chloride Carbon Dioxide Anion Gap BUN Creatinine Creat Clearance w eGFR POC Glucometer Random Glucose Calcium Phosphorus Magnesium Troponin I 3.13 H* Random Vancomycin 26.3 H 11/29/18 11/29/18 05:15 05:15 WBC RBC Hgb Hct MCV MCH MCHC RDW Plt Count MPV Absolute Neuts (auto) Neutrophils % Lymphocytes % Monocytes % Eosinophils % Basophils % Nucleated RBC % PT with INR 38.20 H INR 3.20 H Sodium 136 Potassium 4.6 Chloride 99 Carbon Dioxide 29 Anion Gap 8 BUN 55 H Creatinine 10.0 H* Creat Clearance w eGFR 5.14 POC Glucometer Random Glucose 64 L Calcium 8.1 L Phosphorus 3.8 Magnesium 2.3 Troponin I Random Vancomycin Active Medications Generic Name Dose Route Start Last Admin Trade Name Freq PRN Reason Stop Dose Admin Acetaminophen 650 mg 11/28/18 13:58 11/28/18 14:02 Tylenol - PO 650 mg Q4H PRN Administration FEVER Aspirin 81 mg 11/28/18 10:00 11/29/18 09:43 Asa - PO 81 mg DAILY [facility] Administration Atorvastatin Calcium 10 mg 11/28/18 22:00 11/28/18 22:05 Lipitor - PO 10 mg HS [facility] Administration Chlorhexidine Gluconate 1 applic 11/28/18 22:00 11/28/18 22:05 Hibiclens For Decolonization - TP 1 applic HS [facility] Administration Cinacalcet 30 mg 11/28/18 10:00 11/29/18 09:46 Sensipar - PO 30 mg DAILY [facility] Administration Clopidogrel Bisulfate 75 mg 11/28/18 10:00 11/29/18 10:20 Plavix - PO 75 mg DAILY [facility] Administration Sodium Chloride 250 mls @ 3,000 mls/hr 11/28/18 12:02 Normal Saline - IV 11/29/18 12:02 PRN PRN Hypotension during Dialysis Sodium Chloride 250 mls @ 3,000 mls/hr 11/28/18 12:03 Normal Saline - IV 11/29/18 12:03 PRN PRN Hypotension during Dialysis Piperacillin Sod/Tazobactam 50 mls @ 100 mls/hr 11/28/18 18:00 11/29/18 09:41 Sod 2.25 gm/ Dextrose IVPB 100 mls/hr Q8H-IV [facility] Administration Protocol Insulin Aspart 1 vial 11/28/18 07:00 11/29/18 11:50 Novolog Vial Sliding Scale - SQ Not Given ACHS [facility] Protocol Metoprolol Tartrate 25 mg 11/28/18 10:00 11/29/18 09:43 Lopressor - PO 25 mg BID [facility] Administration Mupirocin 1 applic 11/28/18 10:00 11/29/18 09:42 Bactroban Ointment (For Decolonization) - NS 12/03/18 09:59 1 applic BID [facility] Administration Oseltamivir Phosphate 30 mg 11/29/18 09:24 11/29/18 09:42 Tamiflu - PO 12/04/18 09:23 30 mg TUTHSA [facility] Administration Pantoprazole Sodium 40 mg 11/28/18 10:00 11/29/18 09:43 Protonix - PO 40 mg DAILY [facility] Administration Sevelamer Carbonate 800 mg 11/28/18 08:00 11/29/18 12:00 Renvela - PO 800 mg TIDCM [facility] Administration CBC, BMP 11/29/18 05:15 11/29/18 05:15 ASSESSMENT/PLAN: 73 y/o M w/ PMHx ESRD on HD T//, Afib on coumadin, DM, TIA, BPH, dysphagia, HTN, HLD, 1 m/a was treated w/ vancomycin at [facility] for infection of L AV fistula which was removed and underwent same-sided graft developed dizziness and SOB towards the end of HD yesterday, then on presentation in the ED was febrile, hypotensive, tachycardic. Had WBC 11.5, supratherapeutic INR, and troponemia. Serial troponins have continued rising, however no EKG changes. #CV * echo LV normnal EF , LV wall motion normal , LA dilated , RA dilated MR, TR, RV pressure > 60 mmhg * cont ASA, Plavix, atorvastatin, Lopressor * hold warfarin until INR is therapeutic (currently 3.2) we can start tomorrow * troponins peaked * Dr. Coles following, will contact Dr. Laboy at [facility] for further info regarding his past cardiac hx #ID * Dr. Carlos following * Tx for HCAP * Vancomycin (trough is currently high 26.3), Zosyn, Tamiflu per renal parameters as per ID * Cx negative * RSV+ * UA mildly positive, however confounded by oliguric/dialysis status #pulmonary * cont supplemental O2 * CXR with no new changes #nephro * Dr. Johnson following * for HD today * cont sevelamer, cinacalcet #FEN * no IVF, fluid issues as per nephrology * monitor and correct electrolytes * renal diet #PPx * DVT: on warfarin but holding for correction of INR * GI: PPI 40 daily #code * full code #dispo -transfer to tele Visit type - Emergency Visit Emergency Visit: Yes ED Registration Date: 11/27/18 Care time: The patient presented to the Emergency Department on the above date and was hospitalized for further evaluation of their emergent condition. - New Patient This patient is new to me today: No - Critical Care Critical Care patient: Yes Total Critical Care Time (in minutes): 45 Critical Care Statement: The care of this patient involved high complexity decision making to prevent further life threatening deterioration of the patient 's condition and/or to evaluate & treat vital organ system(s) failure or risk of failure.
--- NOTE | 2018-11-29 15:11 | PN ---
Progress Note (short form) - Note Progress Note: Case d/w his primary executive personal assistant Dr. Laboy at [facility]. Patient's last stress test was in 2011. Will plan for infectious process to resolve, then further risk stratify w/ pharm stress prior to d/c.
--- NOTE | 2018-11-29 16:59 | PN ---
Progress Note (short form) - Note Progress Note: Renal follow up for ESRD Pt seen and examined in step down s/p HD this am with 3kg UF tolerated it well pt sleeping, at the bedside Vital Signs Temperature 99.2 F 11/29/18 14:44 Pulse Rate 74 11/29/18 14:44 Respiratory Rate 17 11/29/18 14:44 Blood Pressure 112/53 L 11/29/18 14:44 O2 Sat by Pulse Oximetry (%) 98 11/29/18 09:00 Intake & Output 11/26/18 11/27/18 11/28/18 11/29/18 23:59 23:59 23:59 23:59 Intake Total 100 700 440 Output Total 3 Balance 100 697 440 Weight 88.11 kg 88.11 kg 87.997 kg NAD awake and alert neck supple, no JVD no LE edema CBC, BMP 11/29/18 05:15 11/29/18 05:15 Current Medications Acetaminophen (Tylenol -) 650 mg PO Q4H PRN PRN Reason: FEVER Last Admin: 11/28/18 14:02 Dose: 650 mg Aspirin (Asa -) 81 mg PO DAILY [facility] Last Admin: 11/29/18 09:43 Dose: 81 mg Atorvastatin Calcium (Lipitor -) 10 mg PO HS [facility] Last Admin: 11/28/18 22:05 Dose: 10 mg Chlorhexidine Gluconate (Hibiclens For Decolonization -) 1 applic TP HS [facility] Last Admin: 11/28/18 22:05 Dose: 1 applic Cinacalcet (Sensipar -) 30 mg PO DAILY [facility] Last Admin: 11/29/18 09:46 Dose: 30 mg Clopidogrel Bisulfate (Plavix -) 75 mg PO DAILY [facility] Last Admin: 11/29/18 10:20 Dose: 75 mg Sodium Chloride (Normal Saline -) 250 mls @ 3,000 mls/hr IV PRN PRN PRN Reason: Hypotension during Dialysis Stop: 11/29/18 12:02 Sodium Chloride (Normal Saline -) 250 mls @ 3,000 mls/hr IV PRN PRN PRN Reason: Hypotension during Dialysis Stop: 11/29/18 12:03 Piperacillin Sod/Tazobactam (Sod 2.25 gm/ Dextrose) 50 mls @ 100 mls/hr IVPB Q8H-IV [facility]; Protocol Last Admin: 11/29/18 09:41 Dose: 100 mls/hr Insulin Aspart (Novolog Vial Sliding Scale -) 1 vial SQ ACHS [facility]; Protocol Last Admin: 11/29/18 11:50 Dose: Not Given Metoprolol Tartrate (Lopressor -) 25 mg PO BID [facility] Last Admin: 11/29/18 09:43 Dose: 25 mg Mupirocin (Bactroban Ointment (For Decolonization) -) 1 applic NS BID [facility] Stop: 12/03/18 09:59 Last Admin: 11/29/18 09:42 Dose: 1 applic Oseltamivir Phosphate (Tamiflu -) 30 mg PO TUTHSA [facility] Stop: 12/04/18 09:23 Last Admin: 11/29/18 09:42 Dose: 30 mg Pantoprazole Sodium (Protonix -) 40 mg PO DAILY [facility] Last Admin: 11/29/18 09:43 Dose: 40 mg Sevelamer Carbonate (Renvela -) 800 mg PO TIDCM [facility] Last Admin: 11/29/18 12:00 Dose: 800 mg 73 year old gentleman with hx of ESRD on HD (TTS), Hypertension, DM, Afib on coumadin, HLD, TIA, dysphagia who presented to the ED from outpatient dialysis with chills, productive cough and elevated HR at dialysis. #Chill r/o bacteremia #Productive cough r/o CHF vs infection #Rising Cardiac enzymes r/o ACS #ESRD on HD #Chronic Anemia #Renal Osteodystrophy Cultures negative thus far continue empiric abx as per ID CXR shows resolution of congestion tolerated dialysis this am with 3kg UF Cardiology following regarding elevated cardiac enzymees Thank you Will follow
--- NOTE | 2018-11-29 17:44 | PN ---
Progress Note (short form) - Note Progress Note: overall improved s/p HD RSV antigen positive! Vital Signs Period Temp Pulse Resp BP Sys/Martel Pulse Ox Last 24 Hr 98.1 F-99.2 F 68-92 15-23 100-139/50-75 98-98 cor-rrr llungs clear abd soft,nt ext no edema +PC CBC, BMP 11/29/18 05:15 11/29/18 05:15 Microbiology 11/27/18 15:48 Blood - Peripheral Venous Blood Culture - Preliminary NO GROWTH OBTAINED AFTER 48 HOURS, INCUBATION TO CONTINUE FOR 3 DAYS. 11/27/18 15:48 Blood - Peripheral Venous Blood Culture - Preliminary NO GROWTH OBTAINED AFTER 48 HOURS, INCUBATION TO CONTINUE FOR 3 DAYS. a/p Hypoxia and fever with cough pneumonia- ?HAP, ?viral +RSV antigen can d/c tamiflu given positive rsv antigen continue zosyn for now ?infected AVF- is completing 6 weeks of vancomycin with HD per renal, check trough in am and redose less then 15 +troponins- f/u per cardiology diabetes Problem List - Problems (1) Pneumonia Code(s): J18.9 - PNEUMONIA, UNSPECIFIED ORGANISM (2) Hypoxia Code(s): R09.02 - HYPOXEMIA (3) Elevated troponin Code(s): R74.8 - ABNORMAL LEVELS OF OTHER SERUM ENZYMES (4) End stage renal disease on dialysis Code(s): N18.6 - END STAGE RENAL DISEASE; Z99.2 - DEPENDENCE ON RENAL DIALYSIS (5) Diabetes Code(s): E11.9 - TYPE 2 DIABETES MELLITUS WITHOUT COMPLICATIONS
[2018-11-29] MEDS: ACETAMINOPHEN 325 MG TABLET (FP) PO PRN (17:54)
[2018-11-29] MEDS: ATORVASTATIN CA 10 MG TABLET (FP) PO SCH (21:07)
[2018-11-29] MEDS: CHLORHEXIDINE GLUCONATE 4% CLEANSER FOR DECOLONIZATION TP SCH (21:15)
--- NOTE | 2018-11-29 23:20 | PN ---
Progress Note, Physician History of Present Illness: Pt still w/ some SOB and cough - Current Medication List Current Medications: Active Medications Acetaminophen (Tylenol -) 650 mg PO Q4H PRN PRN Reason: FEVER Last Admin: 11/29/18 17:54 Dose: 650 mg Aspirin (Asa -) 81 mg PO DAILY [facility] Last Admin: 11/29/18 09:43 Dose: 81 mg Atorvastatin Calcium (Lipitor -) 10 mg PO HS [facility] Last Admin: 11/29/18 21:07 Dose: 10 mg Chlorhexidine Gluconate (Hibiclens For Decolonization -) 1 applic TP HS [facility] Last Admin: 11/29/18 21:15 Dose: Not Given Cinacalcet (Sensipar -) 30 mg PO DAILY [facility] Last Admin: 11/29/18 09:46 Dose: 30 mg Clopidogrel Bisulfate (Plavix -) 75 mg PO DAILY [facility] Last Admin: 11/29/18 10:20 Dose: 75 mg Sodium Chloride (Normal Saline -) 250 mls @ 3,000 mls/hr IV PRN PRN PRN Reason: Hypotension during Dialysis Stop: 11/29/18 12:02 Sodium Chloride (Normal Saline -) 250 mls @ 3,000 mls/hr IV PRN PRN PRN Reason: Hypotension during Dialysis Stop: 11/29/18 12:03 Piperacillin Sod/Tazobactam (Sod 2.25 gm/ Dextrose) 50 mls @ 100 mls/hr IVPB Q8H-IV [facility]; Protocol Last Admin: 11/29/18 17:52 Dose: 100 mls/hr Insulin Aspart (Novolog Vial Sliding Scale -) 1 vial SQ ACHS [facility]; Protocol Last Admin: 11/29/18 22:10 Dose: Not Given Metoprolol Tartrate (Lopressor -) 25 mg PO BID [facility] Last Admin: 11/29/18 21:07 Dose: 25 mg Mupirocin (Bactroban Ointment (For Decolonization) -) 1 applic NS BID [facility] Stop: 12/03/18 09:59 Last Admin: 11/29/18 21:14 Dose: 1 applic Pantoprazole Sodium (Protonix -) 40 mg PO DAILY [facility] Last Admin: 11/29/18 09:43 Dose: 40 mg Sevelamer Carbonate (Renvela -) 800 mg PO TIDCM [facility] Last Admin: 11/29/18 17:54 Dose: 800 mg - Objective Vital Signs: Vital Signs Temperature 98.5 F 11/29/18 21:22 Pulse Rate 87 11/29/18 21:22 Respiratory Rate 18 11/29/18 21:22 Blood Pressure 102/44 L 11/29/18 21:22 O2 Sat by Pulse Oximetry (%) 100 11/29/18 21:00 Constitutional: Yes: Well Nourished Neck: Yes: WNL, Supple Cardiovascular: Yes: Pulse Irregular Respiratory: Yes: Diminished Gastrointestinal: Yes: WNL, Normal Bowel Sounds, Soft Labs: CBC, BMP 11/29/18 05:15 11/29/18 05:15 INR, PTT INR 3.20 (0.83-1.09) H 11/29/18 05:15 Problem List - Problems (1) Respiratory distress Assessment/Plan: (+) RSV Cont tamiflu Cont iv solumedrol Cont resp support Due to sepsis Follow cultures Code(s): R06.00 - DYSPNEA, UNSPECIFIED (2) Elevated troponin Assessment/Plan: Due to demand ischemia from sepsis? Cont plavix/asa/BB Trend troponin Echo noted Code(s): R74.8 - ABNORMAL LEVELS OF OTHER SERUM ENZYMES (3) Sepsis Assessment/Plan: ?Due to asp pneumonia vs RSV Follow cultures Cont IV zosyn/solumedrol Hypotensin due to sepsis wc is improving BC remain negative Code(s): A41.9 - SEPSIS, UNSPECIFIED ORGANISM (4) Diabetes Assessment/Plan: Cont sliding scale w/ coverage Code(s): E11.9 - TYPE 2 DIABETES MELLITUS WITHOUT COMPLICATIONS (5) HLD (hyperlipidemia) Assessment/Plan: Cont lipitor Code(s): E78.5 - HYPERLIPIDEMIA, UNSPECIFIED (6) HTN (hypertension) Code(s): I10 - ESSENTIAL (PRIMARY) HYPERTENSION (7) Paroxysmal A-fib Assessment/Plan: Heart rate controlled Coumadin on hold due to supratherapeutic INR Cont to monitor daily pt/inr Code(s): I48.0 - PAROXYSMAL ATRIAL FIBRILLATION (8) End stage renal disease on dialysis Assessment/Plan: Dialysis as per renal Cont renvela/sensipar Code(s): N18.6 - END STAGE RENAL DISEASE; Z99.2 - DEPENDENCE ON RENAL DIALYSIS (9) BPH (benign prostatic hyperplasia) Code(s): N40.0 - BENIGN PROSTATIC HYPERPLASIA WITHOUT LOWER URINRY TRACT SYMP
[2018-11-30] MEDS ORDERED: PIPERACILLIN/TAZOBACTAM 2.25 GM VIAL IVPB ONE (00:46)
[2018-11-30] MEDS ORDERED: DEXTROSE 5%-WATER - 50 ML IVPB ONE (00:46)
[2018-11-30] MEDS: PIPERACILLIN/TAZOB 2.25 GM 2.25 GM in DEXTROSE 5%-WATER - 50 ML IVPB SCH (01:50)
[2018-11-30 06:31] LABS: BASO % 0.5 % (0-2.0); EOS % 2.6 % (0-4.5); HEMATOCRIT 32.2 % (35.4-49); HEMOGLOBIN 10.4 GM/dL (11.7-16.9); LYMPH % 9.8 % (8-40); MCH 33.4 pg (25.7-33.7); MCHC 32.3 g/dl (32.0-35.9); MEAN CELL VOLUME 103.4 fl (80-96); MEAN PLT VOLUME 8.4 fl (7.5-11.1); MONO % 15.7 % (3.8-10.2); NEUT % 71.4 % (42.8-82.8); PLATELET COUNT 157 K/MM3 (134-434); RBC 3.11 M/mm3 (4.00-5.60); WHITE BLOOD COUNT 8.9 K/mm3 (4.0-10.0)
[2018-11-30] MEDS: INSULIN SLIDING SCALE (NOVOLOG) 1 VIAL SQ SCH ×4 (06:31→22:04)
[2018-11-30 07:26] LABS: ALBUMIN 2.4 g/dl (3.4-5.0); ALK PHOS 81 U/L (45-117); ANION GAP 4 MMOL/L (8-16); BILIRUBIN,TOTAL 0.6 mg/dL (0.2-1); BLOOD UREA NITROGEN 31 mg/dL (7-18); CALCIUM 7.9 mg/dL (8.5-10.1); CHLORIDE 101 mmol/L (98-107); CO2 33 mmol/L (21-32); CREATININE 7.3 mg/dL (0.55-1.3); GLUCOSE,RANDOM 143 mg/dL (74-106); POTASSIUM 4.2 mmol/L (3.5-5.1); SGOT/AST 28 U/L (15-37); SGPT/ALT 28 U/L (13-61); SODIUM 138 mmol/L (136-145); TOT PROT 6.2 g/dl (6.4-8.2)
[2018-11-30 09:22] LABS: ANISOCYTOSIS 2+; MACROCYTOSIS 1+; PLATELET ESTIMATE DECREASED
--- NOTE | 2018-11-30 09:32 | PN ---
Progress Note, Physician Chief Complaint: seen and examined in ICU Chest pain free - Current Medication List Current Medications: Active Medications Acetaminophen (Tylenol -) 650 mg PO Q4H PRN PRN Reason: FEVER Last Admin: 11/29/18 17:54 Dose: 650 mg Aspirin (Asa -) 81 mg PO DAILY [facility] Last Admin: 11/29/18 09:43 Dose: 81 mg Atorvastatin Calcium (Lipitor -) 10 mg PO HS [facility] Last Admin: 11/29/18 21:07 Dose: 10 mg Chlorhexidine Gluconate (Hibiclens For Decolonization -) 1 applic TP HS [facility] Last Admin: 11/29/18 21:15 Dose: Not Given Cinacalcet (Sensipar -) 30 mg PO DAILY [facility] Last Admin: 11/29/18 09:46 Dose: 30 mg Clopidogrel Bisulfate (Plavix -) 75 mg PO DAILY [facility] Last Admin: 11/29/18 10:20 Dose: 75 mg Sodium Chloride (Normal Saline -) 250 mls @ 3,000 mls/hr IV PRN PRN PRN Reason: Hypotension during Dialysis Stop: 11/29/18 12:02 Sodium Chloride (Normal Saline -) 250 mls @ 3,000 mls/hr IV PRN PRN PRN Reason: Hypotension during Dialysis Stop: 11/29/18 12:03 Piperacillin Sod/Tazobactam (Sod 2.25 gm/ Dextrose) 50 mls @ 100 mls/hr IVPB Q8H-IV [facility]; Protocol Last Admin: 11/30/18 01:50 Dose: 100 mls/hr Insulin Aspart (Novolog Vial Sliding Scale -) 1 vial SQ ACHS [facility]; Protocol Last Admin: 11/30/18 06:31 Dose: Not Given Metoprolol Tartrate (Lopressor -) 25 mg PO BID [facility] Last Admin: 11/29/18 21:07 Dose: 25 mg Mupirocin (Bactroban Ointment (For Decolonization) -) 1 applic NS BID [facility] Stop: 12/03/18 09:59 Last Admin: 11/29/18 21:14 Dose: 1 applic Pantoprazole Sodium (Protonix -) 40 mg PO DAILY [facility] Last Admin: 11/29/18 09:43 Dose: 40 mg Sevelamer Carbonate (Renvela -) 800 mg PO TIDCM [facility] Last Admin: 11/29/18 17:54 Dose: 800 mg - Objective Vital Signs: Vital Signs Temperature 98.6 F 11/30/18 06:00 Pulse Rate 71 11/30/18 06:00 Respiratory Rate 20 11/30/18 06:00 Blood Pressure 105/48 L 11/30/18 06:00 O2 Sat by Pulse Oximetry (%) 100 11/29/18 21:00 Constitutional: Yes: No Distress Eyes: Yes: Conjunctiva Clear Cardiovascular: Yes: Regular Rate and Rhythm Respiratory: Yes: CTA Bilaterally Gastrointestinal: Yes: Soft Edema: No Neurological: Yes: Alert, Oriented ...Motor Strength: WNL Labs: CBC, BMP 11/30/18 05:30 11/30/18 05:30 INR, PTT INR 3.20 (0.83-1.09) H 11/29/18 05:15 Laboratory Tests 11/30/18 11/30/18 05:30 05:30 WBC 8.9 Hgb 10.4 L Plt Count 157 Potassium 4.2 Creatinine 7.3 H Troponin I 1.69 H* - ....Imaging EKG: Image Reviewed (NSR, APCs) Assessment/Plan IMP: ESRD on HD Fever, SIRS: RSV + Prior CVA, PAF on warfarin + TnI: Suspect demand ischemia secondary to infection REC: 1. Follow cultures, treat underlying infection; abx as per ICU team and ID 2. Echo showed normal LVEF, moderate to severe MR and PHTN. 3. To continue ASA, beta jl, statin, supplimental O2 4. INR 2-3 (PAF) 5. Once infectious source identified and treated, will need ischemic evaluation. 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 Has not required stress test recently. Will plan for stress MPI prior to discharge. TnI trended down, remains asx Will follow
--- NOTE | 2018-11-30 09:56 | PN ---
Progress Note (short form) - Note Progress Note: overall improved s/p HD RSV antigen positive! Vital Signs Period Temp Pulse Resp BP Sys/Martel Pulse Ox Last 24 Hr 97.3 F-100.3 F 68-92 15-22 91-124/37-75 100 cor-rrr lungs bilateral rhonchi abd soft,nt ext no edema CBC, BMP 11/30/18 05:30 11/30/18 05:30 Microbiology 11/27/18 15:48 Blood - Peripheral Venous Blood Culture - Preliminary NO GROWTH OBTAINED AFTER 48 HOURS, INCUBATION TO CONTINUE FOR 3 DAYS. 11/27/18 15:48 Blood - Peripheral Venous Blood Culture - Preliminary NO GROWTH OBTAINED AFTER 48 HOURS, INCUBATION TO CONTINUE FOR 3 DAYS. cxray clear Laboratory Tests 11/29/18 11/30/18 05:15 05:30 Random Vancomycin 26.3 H 21.3 a/p Hypoxia and fever with cough +RSV antigen can d/c tamiflu given positive rsv antigen d/c zosyn infected AVF- is completing 6 weeks of vancomycin with HD per renal, check trough in am and redose less then 15-level 21.3 today +troponins- f/u per cardiology diabetes Problem List - Problems (1) Pneumonia Code(s): J18.9 - PNEUMONIA, UNSPECIFIED ORGANISM (2) Hypoxia Code(s): R09.02 - HYPOXEMIA (3) Elevated troponin Code(s): R74.8 - ABNORMAL LEVELS OF OTHER SERUM ENZYMES (4) End stage renal disease on dialysis Code(s): N18.6 - END STAGE RENAL DISEASE; Z99.2 - DEPENDENCE ON RENAL DIALYSIS (5) Diabetes Code(s): E11.9 - TYPE 2 DIABETES MELLITUS WITHOUT COMPLICATIONS
[2018-11-30] MEDS: CINACALCET HCL 30 MG TAB (FP) PO SCH (10:08)
[2018-11-30] MEDS: CLOPIDOGREL BISULFATE 75 MG TABLET (FP) PO SCH (10:09)
[2018-11-30] MEDS: PANTOPRAZOLE 40 MG TABLET (FP) PO SCH (10:09)
[2018-11-30] MEDS: METOPROLOL TARTRATE 25 MG TABLET (FP) PO SCH ×2 (10:09→21:59)
[2018-11-30] MEDS: ASPIRIN 81 MG CHEWABLE TABLETS PO SCH (10:09)
[2018-11-30] MEDS: SEVELAMER CARBONATE 800 MG TAB (FP) PO SCH ×3 (10:09→17:24)
[2018-11-30] MEDS: MUPIROCIN 2% TOPICAL OINTMENT FOR DECOLONIZATION NS SCH (10:10)
[2018-11-30 13:18] LABS: HBSAG SCREEN Negative (Negative); HEP A AB, IGM Negative (Negative); HEP B CORE AB, TOT Negative (Negative)
--- NOTE | 2018-11-30 13:27 | PN ---
Progress Note (short form) - Note Progress Note: Overall feeling better. Noted (+) RSV No CP or SOB. Intake & Output 11/27/18 11/28/18 11/29/18 11/30/18 23:59 23:59 23:59 23:59 Intake Total 100 700 490 50 Output Total 3 Balance 100 697 490 50 Weight 194 lb 4 oz 194 lb 4 oz 194 lb 185 lb 8 oz Last Vital Signs Temp Pulse Resp BP Pulse Ox 98.6 F 71 20 105/48 L 100 11/30/18 06:00 11/30/18 06:00 11/30/18 06:00 11/30/18 06:00 11/29/18 21:00 Active Medications Acetaminophen (Tylenol -) 650 mg PO Q4H PRN PRN Reason: FEVER Last Admin: 11/29/18 17:54 Dose: 650 mg Aspirin (Asa -) 81 mg PO DAILY [facility] Last Admin: 11/30/18 10:09 Dose: 81 mg Atorvastatin Calcium (Lipitor -) 10 mg PO HS [facility] Last Admin: 11/29/18 21:07 Dose: 10 mg Chlorhexidine Gluconate (Hibiclens For Decolonization -) 1 applic TP HS [facility] Last Admin: 11/29/18 21:15 Dose: Not Given Cinacalcet (Sensipar -) 30 mg PO DAILY [facility] Last Admin: 11/30/18 10:08 Dose: 30 mg Clopidogrel Bisulfate (Plavix -) 75 mg PO DAILY [facility] Last Admin: 11/30/18 10:09 Dose: 75 mg Sodium Chloride (Normal Saline -) 250 mls @ 3,000 mls/hr IV PRN PRN PRN Reason: Hypotension during Dialysis Stop: 11/29/18 12:02 Sodium Chloride (Normal Saline -) 250 mls @ 3,000 mls/hr IV PRN PRN PRN Reason: Hypotension during Dialysis Stop: 11/29/18 12:03 Insulin Aspart (Novolog Vial Sliding Scale -) 1 vial SQ [facility]; Protocol Last Admin: 11/30/18 12:56 Dose: Not Given Metoprolol Tartrate (Lopressor -) 25 mg PO BID [facility] Last Admin: 11/30/18 10:09 Dose: 25 mg Mupirocin (Bactroban Ointment (For Decolonization) -) 1 applic NS BID [facility] Stop: 12/03/18 09:59 Last Admin: 11/30/18 10:10 Dose: 1 applic Pantoprazole Sodium (Protonix -) 40 mg PO DAILY [facility] Last Admin: 11/30/18 10:09 Dose: 40 mg Sevelamer Carbonate (Renvela -) 800 mg PO TIDCM [facility] Last Admin: 11/30/18 10:09 Dose: 800 mg Gen: NAD at rest Heart: RRR Lung: few scattered rhonchi Abd: soft, nontender Ext: no edema ASSESSMENT AND PLAN: (+) RSV Do not suspect Pneumonia Sepsis +Troponins likely Demand Ischemia ESRD on HD Paroxysmal Atrial Fibrillation BPH DM - Monitor off ABX - D/C tamiflu - HD per renal - rate control - ASA, plavix - beta jl, statin - continue anticoagulation to keep INR 2-3 - can monitor on telemetry Dr Wilson
--- NOTE | 2018-11-30 14:43 | PN ---
Progress Note (short form) - Note Progress Note: Renal follow up for ESRD Pt seen and examined in step down awake and alert reports continued cough but no sob, or cp able to walk to bathroom w/o difficulty s/p HD yesterday no fever or chills Vital Signs Temperature 98.7 F 11/30/18 13:28 Pulse Rate 74 11/30/18 13:28 Respiratory Rate 22 H 11/30/18 13:28 Blood Pressure 109/53 L 11/30/18 13:28 O2 Sat by Pulse Oximetry (%) 96 11/30/18 09:00 Intake & Output 11/27/18 11/28/18 11/29/18 11/30/18 23:59 23:59 23:59 23:59 Intake Total 100 700 490 50 Output Total 3 Balance 100 697 490 50 Weight 88.11 kg 88.11 kg 87.997 kg 84.141 kg NAD awake and alert neck supple, no JVD no LE edema CBC, BMP 11/30/18 05:30 11/30/18 05:30 Laboratory Tests 11/30/18 05:30 Calcium 7.9 L Troponin I 1.69 H* Albumin 2.4 L Current Medications Acetaminophen (Tylenol -) 650 mg PO Q4H PRN PRN Reason: FEVER Last Admin: 11/29/18 17:54 Dose: 650 mg Aspirin (Asa -) 81 mg PO DAILY [facility] Last Admin: 11/30/18 10:09 Dose: 81 mg Atorvastatin Calcium (Lipitor -) 10 mg PO HS [facility] Last Admin: 11/29/18 21:07 Dose: 10 mg Chlorhexidine Gluconate (Hibiclens For Decolonization -) 1 applic TP HS [facility] Last Admin: 11/29/18 21:15 Dose: Not Given Cinacalcet (Sensipar -) 30 mg PO DAILY [facility] Last Admin: 11/30/18 10:08 Dose: 30 mg Clopidogrel Bisulfate (Plavix -) 75 mg PO DAILY [facility] Last Admin: 11/30/18 10:09 Dose: 75 mg Sodium Chloride (Normal Saline -) 250 mls @ 3,000 mls/hr IV PRN PRN PRN Reason: Hypotension during Dialysis Stop: 11/29/18 12:02 Sodium Chloride (Normal Saline -) 250 mls @ 3,000 mls/hr IV PRN PRN PRN Reason: Hypotension during Dialysis Stop: 11/29/18 12:03 Insulin Aspart (Novolog Vial Sliding Scale -) 1 vial SQ ACHS [facility]; Protocol Last Admin: 11/30/18 12:56 Dose: Not Given Metoprolol Tartrate (Lopressor -) 25 mg PO BID [facility] Last Admin: 11/30/18 10:09 Dose: 25 mg Mupirocin (Bactroban Ointment (For Decolonization) -) 1 applic NS BID [facility] Stop: 12/03/18 09:59 Last Admin: 11/30/18 10:10 Dose: 1 applic Pantoprazole Sodium (Protonix -) 40 mg PO DAILY [facility] Last Admin: 11/30/18 10:09 Dose: 40 mg Sevelamer Carbonate (Renvela -) 800 mg PO TIDCM [facility] Last Admin: 11/30/18 14:33 Dose: 800 mg 73 year old gentleman with hx of ESRD on HD (TTS), Hypertension, DM, Afib on coumadin, HLD, TIA, dysphagia who presented to the ED from outpatient dialysis with chills, productive cough and elevated HR at dialysis. #Chills/URI/r/o bacterial PNA, RSV + #Rising Cardiac enzymes r/o ACS #ESRD on HD #Chronic Anemia #Renal Osteodystrophy No acute need for [employer]ER today for dialysis tomorrow morning, will use 1 needle in AVG Will continue Vanco, dosed with dialysis as needed for AVF infection (to complete 6 week course) Remainder of Abx/Antivirals as per ID continue supportive care continue senispar and renvela cardiology following Thank you Will follow
[2018-11-30] MEDS ORDERED: ACETAMINOPHEN 325 MG TABLET (FP) PO PRN (20:50)
[2018-11-30] MEDS: ATORVASTATIN CA 10 MG TABLET (FP) PO SCH (22:00)
--- NOTE | 2018-11-30 22:43 | PN ---
Progress Note, Physician History of Present Illness: No new complaints - Current Medication List Current Medications: Active Medications Acetaminophen (Tylenol -) 650 mg PO Q4H PRN PRN Reason: FEVER Aspirin (Asa -) 81 mg PO DAILY [facility] Atorvastatin Calcium (Lipitor -) 10 mg PO HS [facility] Last Admin: 11/30/18 22:00 Dose: 10 mg Cinacalcet (Sensipar -) 30 mg PO DAILY [facility] Clopidogrel Bisulfate (Plavix -) 75 mg PO DAILY [facility] Epoetin Lei (Epogen -) 6,000 unit IVPUSH ONCE ONE Stop: 12/01/18 09:01 Heparin Sodium (Porcine) (Heparin -) 500 unit IVPUSH ONCE ONE Stop: 11/30/18 14:46 Heparin Sodium (Porcine) (Heparin -) 300 unit IVPUSH Q1H [facility] Stop: 11/30/18 16:46 Sodium Chloride (Normal Saline -) 250 mls @ 3,000 mls/hr IV PRN PRN PRN Reason: Hypotension during Dialysis Stop: 12/01/18 14:45 Vancomycin HCl 1,000 mg/ (Dextrose) 250 mls @ 166.667 mls/hr IVPB ONCE ONE; Protocol Stop: 12/01/18 10:29 Insulin Aspart (Novolog Vial Sliding Scale -) 1 vial SQ ACHS [facility]; Protocol Last Admin: 11/30/18 22:04 Dose: Not Given Metoprolol Tartrate (Lopressor -) 25 mg PO BID [facility] Last Admin: 11/30/18 21:59 Dose: 25 mg Pantoprazole Sodium (Protonix -) 40 mg PO DAILY [facility] Sevelamer Carbonate (Renvela -) 800 mg PO TIDCM [facility] - Objective Vital Signs: Vital Signs Temperature 98.6 F 11/30/18 18:00 Pulse Rate 67 11/30/18 18:00 Respiratory Rate 22 H 11/30/18 18:00 Blood Pressure 106/47 L 11/30/18 18:00 O2 Sat by Pulse Oximetry (%) 96 11/30/18 09:00 Constitutional: Yes: Well Nourished Neck: Yes: WNL, Supple Cardiovascular: Yes: WNL, Regular Rate and Rhythm Respiratory: Yes: Diminished Gastrointestinal: Yes: WNL, Normal Bowel Sounds, Soft Labs: CBC, BMP 11/30/18 05:30 11/30/18 05:30 INR, PTT INR 3.20 (0.83-1.09) H 11/29/18 05:15 Problem List - Problems (1) Respiratory distress Assessment/Plan: (+) RSV Cont tamiflu Cont iv solumedrol Cont resp support Due to sepsis Follow cultures Code(s): R06.00 - DYSPNEA, UNSPECIFIED (2) Sepsis Assessment/Plan: ?Due to asp pneumonia vs RSV Follow cultures Cont IV zosyn/solumedrol Hypotensin due to sepsis wc is improving BC remain negative Code(s): A41.9 - SEPSIS, UNSPECIFIED ORGANISM (3) Elevated troponin Assessment/Plan: Due to demand ischemia from sepsis? Cont plavix/asa/BB Echo noted Code(s): R74.8 - ABNORMAL LEVELS OF OTHER SERUM ENZYMES (4) HTN (hypertension) Assessment/Plan: Cont metoprolol Code(s): I10 - ESSENTIAL (PRIMARY) HYPERTENSION (5) Paroxysmal A-fib Assessment/Plan: Heart rate controlled Coumadin on hold due to supratherapeutic INR Cont to monitor daily pt/inr Code(s): I48.0 - PAROXYSMAL ATRIAL FIBRILLATION (6) Diabetes Assessment/Plan: Cont sliding scale w/ coverage Code(s): E11.9 - TYPE 2 DIABETES MELLITUS WITHOUT COMPLICATIONS (7) BPH (benign prostatic hyperplasia) Code(s): N40.0 - BENIGN PROSTATIC HYPERPLASIA WITHOUT LOWER URINRY TRACT SYMP (8) HLD (hyperlipidemia) Assessment/Plan: Cont lipitor Code(s): E78.5 - HYPERLIPIDEMIA, UNSPECIFIED (9) Anemia Assessment/Plan: Cont epogin Due to renal dz Monitor H/H Code(s): D64.9 - ANEMIA, UNSPECIFIED
[2018-12-01] MEDS: INSULIN SLIDING SCALE (NOVOLOG) 1 VIAL SQ SCH ×4 (06:02→22:28)
[2018-12-01] MEDS ORDERED: PT OWN MED DRAWER 7, Y5N ONE ×2 (08:47→09:14)
--- NOTE | 2018-12-01 08:58 | PN ---
Progress Note, Physician - Current Medication List Current Medications: Active Medications Acetaminophen (Tylenol -) 650 mg PO Q4H PRN PRN Reason: FEVER Aspirin (Asa -) 81 mg PO DAILY [facility] Atorvastatin Calcium (Lipitor -) 10 mg PO HS [facility] Last Admin: 11/30/18 22:00 Dose: 10 mg Cinacalcet (Sensipar -) 30 mg PO DAILY [facility] Clopidogrel Bisulfate (Plavix -) 75 mg PO DAILY [facility] Epoetin Lei (Epogen -) 6,000 unit IVPUSH ONCE ONE Stop: 12/01/18 09:01 Heparin Sodium (Porcine) (Heparin -) 500 unit IVPUSH ONCE ONE Stop: 11/30/18 14:46 Heparin Sodium (Porcine) (Heparin -) 300 unit IVPUSH Q1H [facility] Stop: 11/30/18 16:46 Sodium Chloride (Normal Saline -) 250 mls @ 3,000 mls/hr IV PRN PRN PRN Reason: Hypotension during Dialysis Stop: 12/01/18 14:45 Vancomycin HCl 1,000 mg/ (Dextrose) 250 mls @ 166.667 mls/hr IVPB ONCE ONE; Protocol Stop: 12/01/18 10:29 Insulin Aspart (Novolog Vial Sliding Scale -) 1 vial SQ ACHS [facility]; Protocol Last Admin: 12/01/18 06:02 Dose: Not Given Metoprolol Tartrate (Lopressor -) 25 mg PO BID [facility] Last Admin: 11/30/18 21:59 Dose: 25 mg Pantoprazole Sodium (Protonix -) 40 mg PO DAILY [facility] Sevelamer Carbonate (Renvela -) 800 mg PO TIDCM [facility] - Objective Vital Signs: Vital Signs Temperature 98.7 F 12/01/18 02:00 Pulse Rate 72 12/01/18 02:00 Respiratory Rate 18 12/01/18 02:00 Blood Pressure 109/54 L 12/01/18 02:00 O2 Sat by Pulse Oximetry (%) 97 11/30/18 21:00 Eyes: Yes: WNL, Conjunctiva Clear, EOM Intact HENT: Yes: WNL, Atraumatic, Normocephalic Neck: Yes: WNL, Supple, Trachea Midline Cardiovascular: Yes: WNL, Regular Rate and Rhythm Respiratory: Yes: WNL, Regular, CTA Bilaterally Gastrointestinal: Yes: WNL, Normal Bowel Sounds Genitourinary: Yes: WNL Musculoskeletal: Yes: WNL Extremities: Yes: WNL Edema: No Integumentary: Yes: WNL Neurological: Yes: WNL, Alert, Oriented ...Motor Strength: WNL Psychiatric: Yes: WNL Labs: CBC, BMP 11/30/18 05:30 11/30/18 05:30 INR, PTT INR 3.20 (0.83-1.09) H 11/29/18 05:15 Assessment/Plan IMP: ESRD on HD Fever, SIRS: RSV + Prior CVA, PAF on warfarin + TnI: Suspect demand ischemia secondary to infection REC: 1. Follow cultures, treat underlying infection; abx as per ICU team and ID 2. Echo showed normal LVEF, moderate to severe MR and PHTN. 3. To continue ASA, beta jl, statin, supplimental O2 4. INR 2-3 (PAF) 5. Once infectious source identified and treated, will need ischemic evaluation. 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 Laboy, his primary setter off. Has not required stress test recently. Will plan for stress MPI prior to discharge. TnI trended down, remains asx Will follow
[2018-12-01] MEDS ORDERED: VANCOMYCIN 1 GRAM (PRE-DOCKED) 1,000 MG/250 ML BAG IVPB ONE (09:00)
[2018-12-01] MEDS: CLOPIDOGREL BISULFATE 75 MG TABLET (FP) PO SCH (09:01)
[2018-12-01] MEDS: PANTOPRAZOLE 40 MG TABLET (FP) PO SCH (09:01)
[2018-12-01] MEDS: SEVELAMER CARBONATE 800 MG TAB (FP) PO SCH ×3 (09:01→22:28)
[2018-12-01] MEDS: ASPIRIN 81 MG CHEWABLE TABLETS PO SCH (09:01)
[2018-12-01] MEDS: CINACALCET HCL 30 MG TAB (FP) PO SCH (09:21)
[2018-12-01] MEDS: METOPROLOL TARTRATE 25 MG TABLET (FP) PO SCH ×2 (10:10→22:27)
--- NOTE | 2018-12-01 11:38 | PN ---
Progress Note, Physician History of Present Illness: pulmonary alert,+ cough,less dyspneic - Current Medication List Current Medications: Active Medications Acetaminophen (Tylenol -) 650 mg PO Q4H PRN PRN Reason: FEVER Aspirin (Asa -) 81 mg PO DAILY [facility] Last Admin: 12/01/18 09:01 Dose: 81 mg Atorvastatin Calcium (Lipitor -) 10 mg PO HS [facility] Last Admin: 11/30/18 22:00 Dose: 10 mg Cinacalcet (Sensipar -) 30 mg PO DAILY [facility] Last Admin: 12/01/18 09:21 Dose: 30 mg Clopidogrel Bisulfate (Plavix -) 75 mg PO DAILY [facility] Last Admin: 12/01/18 09:01 Dose: 75 mg Epoetin Lei (Epogen -) 6,000 unit IVPUSH ONCE ONE Stop: 12/01/18 09:01 Heparin Sodium (Porcine) (Heparin -) 500 unit IVPUSH ONCE ONE Stop: 11/30/18 14:46 Heparin Sodium (Porcine) (Heparin -) 300 unit IVPUSH Q1H [facility] Stop: 11/30/18 16:46 Sodium Chloride (Normal Saline -) 250 mls @ 3,000 mls/hr IV PRN PRN PRN Reason: Hypotension during Dialysis Stop: 12/01/18 14:45 Vancomycin HCl 1,000 mg/ (Dextrose) 250 mls @ 166.667 mls/hr IVPB ONCE ONE; Protocol Stop: 12/01/18 10:29 Insulin Aspart (Novolog Vial Sliding Scale -) 1 vial SQ ACHS [facility]; Protocol Last Admin: 12/01/18 06:02 Dose: Not Given Metoprolol Tartrate (Lopressor -) 25 mg PO BID [facility] Last Admin: 12/01/18 10:10 Dose: Not Given Pantoprazole Sodium (Protonix -) 40 mg PO DAILY [facility] Last Admin: 12/01/18 09:01 Dose: 40 mg Sevelamer Carbonate (Renvela -) 800 mg PO TIDCM [facility] Last Admin: 12/01/18 09:01 Dose: 800 mg - Objective Vital Signs: Vital Signs Temperature 98.8 F 12/01/18 10:00 Pulse Rate 85 12/01/18 10:00 Respiratory Rate 19 12/01/18 10:00 Blood Pressure 121/56 L 12/01/18 10:00 O2 Sat by Pulse Oximetry (%) 97 12/01/18 09:00 Constitutional: Yes: Well Nourished, Calm Eyes: Yes: WNL HENT: Yes: WNL, Tonsillar Exudate Cardiovascular: Yes: Regular Rate and Rhythm, S1, S2 (bilateral wheezes) Gastrointestinal: Yes: Normal Bowel Sounds, Soft Extremities: Yes: WNL Edema: No Labs: CBC, BMP 11/30/18 05:30 11/30/18 05:30 INR, PTT INR 3.20 (0.83-1.09) H 11/29/18 05:15 Problem List - Problems (1) RSV (respiratory syncytial virus infection) Code(s): B97.4 - RESPIRATORY SYNCYTIAL VIRUS CAUSING DISEASES CLASSD ELSWHR (2) Diabetes Code(s): E11.9 - TYPE 2 DIABETES MELLITUS WITHOUT COMPLICATIONS (3) Elevated troponin Code(s): R74.8 - ABNORMAL LEVELS OF OTHER SERUM ENZYMES (4) Fever Code(s): R50.9 - FEVER, UNSPECIFIED (5) Hypoxia Code(s): R09.02 - HYPOXEMIA (6) NSTEMI (non-ST elevated myocardial infarction) Code(s): I21.4 - NON-ST ELEVATION (NSTEMI) MYOCARDIAL INFARCTION (7) Atrial fibrillation Code(s): I48.91 - UNSPECIFIED ATRIAL FIBRILLATION (8) End stage renal disease on dialysis Code(s): N18.6 - END STAGE RENAL DISEASE; Z99.2 - DEPENDENCE ON RENAL DIALYSIS Assessment/Plan ASSESSMENT AND PLAN: r/o Pneumonia +RSV Severe Sepsis +Troponins likely Demand Ischemia ESRD on HD Paroxysmal Atrial Fibrillation BPH DM - antibiotics - HD per renal - rate control - ASA, plavix - beta jl, statin - continue anticoagulation to keep INR 2-3 - short course of juana ARREOLA
--- NOTE | 2018-12-01 11:51 | PN ---
Progress Note (short form) - Note Progress Note: Renal follow up for ESRD Pt seen and examined in step down awake and alert cough is improved, no sob Vital Signs Temperature 98.8 F 12/01/18 10:00 Pulse Rate 85 12/01/18 10:00 Respiratory Rate 12/01/18 10:00 Blood Pressure 121/56 L 12/01/18 10:00 O2 Sat by Pulse Oximetry (%) 97 12/01/18 09:00 Intake & Output 11/28/18 11/29/18 11/30/18 12/01/18 23:59 23:59 23:59 23:59 Intake Total 700 490 50 340 Output Total 3 Balance 697 490 50 340 Weight 88.11 kg 87.997 kg 84.141 kg 87.271 kg NAD awake and alert cTA neck supple, no JVD no LE edema CBC, BMP 11/30/18 05:30 11/30/18 05:30 Current Medications Acetaminophen (Tylenol -) 650 mg PO Q4H PRN PRN Reason: FEVER Aspirin (Asa -) 81 mg PO DAILY [facility] Last Admin: 12/01/18 09:01 Dose: 81 mg Atorvastatin Calcium (Lipitor -) 10 mg PO HS [facility] Last Admin: 11/30/18 22:00 Dose: 10 mg Cinacalcet (Sensipar -) 30 mg PO DAILY [facility] Last Admin: 12/01/18 09:21 Dose: 30 mg Clopidogrel Bisulfate (Plavix -) 75 mg PO DAILY [facility] Last Admin: 12/01/18 09:01 Dose: 75 mg Epoetin Lei (Epogen -) 6,000 unit IVPUSH ONCE ONE Stop: 12/01/18 09:01 Heparin Sodium (Porcine) (Heparin -) 500 unit IVPUSH ONCE ONE Stop: 11/30/18 14:46 Heparin Sodium (Porcine) (Heparin -) 300 unit IVPUSH Q1H [facility] Stop: 11/30/18 16:46 Sodium Chloride (Normal Saline -) 250 mls @ 3,000 mls/hr IV PRN PRN PRN Reason: Hypotension during Dialysis Stop: 12/01/18 14:45 Vancomycin HCl 1,000 mg/ (Dextrose) 250 mls @ 166.667 mls/hr IVPB ONCE ONE; Protocol Stop: 12/01/18 10:29 Insulin Aspart (Novolog Vial Sliding Scale -) 1 vial SQ ACHS [facility]; Protocol Last Admin: 12/01/18 06:02 Dose: Not Given Methylprednisolone Sodium Succinate (Solu-Medrol -) 40 mg IVPUSH Q8H-IV [facility] Metoprolol Tartrate (Lopressor -) 25 mg PO BID [facility] Last Admin: 12/01/18 10:10 Dose: Not Given Pantoprazole Sodium (Protonix -) 40 mg PO DAILY [facility] Last Admin: 12/01/18 09:01 Dose: 40 mg Sevelamer Carbonate (Renvela -) 800 mg PO TIDCM [facility] Last Admin: 12/01/18 09:01 Dose: 800 mg 73 year old gentleman with hx of ESRD on HD (TTS), Hypertension, DM, Afib on coumadin, HLD, TIA, dysphagia who presented to the ED from outpatient dialysis with chills, productive cough and elevated HR at dialysis. #Chills/URI/r/o bacterial PNA, RSV + #Rising Cardiac enzymes r/o ACS #ESRD on HD #Chronic Anemia #Renal Osteodystrophy for dialysis today with UF as tolerated Will continue Vanco, dosed with dialysis as needed for AVF infection (to complete 6 week course) continue supportive care continue senispar and renvela cardiology following Thank you Will follow
[2018-12-01] MEDS ORDERED: INSULIN SLIDING SCALE (NOVOLOG) 1 VIAL SQ ONE (12:12)
[2018-12-01] MEDS: methylPREDNISolone NA SUCC 40 MG/1 ML VIAL IVPUSH SCH ×2 (12:15→22:28)
[2018-12-01] MEDS ORDERED: SODIUM CHLORIDE 250 ML IV PRN (14:45)
--- NOTE | 2018-12-01 15:51 | PN ---
Progress Note (short form) - Note Progress Note: overall improved s/p HD RSV antigen positive afebrile less cough Vital Signs Period Temp Pulse Resp BP Sys/Martel Pulse Ox Last 24 Hr 98.0 F-98.8 F 67-85 16-22 98-121/47-65 97-97 cor-rrr lungs clear abd soft,nt ext no edema CBC, BMP 11/30/18 05:30 11/30/18 05:30 cxray clear Laboratory Tests 11/29/18 11/30/18 05:15 05:30 Random Vancomycin 26.3 H 21.3 a/p Hypoxia and fever with cough +RSV antigen afebrile doing well infected AVF- is completing 6 weeks of vancomycin with HD per renal, check trough in am and redose less then 15-level 21.3 today +troponins- f/u per cardiology diabetes vanco dosing per renal please call back if needed Problem List - Problems (1) Pneumonia Code(s): J18.9 - PNEUMONIA, UNSPECIFIED ORGANISM (2) Hypoxia Code(s): R09.02 - HYPOXEMIA (3) Elevated troponin Code(s): R74.8 - ABNORMAL LEVELS OF OTHER SERUM ENZYMES (4) End stage renal disease on dialysis Code(s): N18.6 - END STAGE RENAL DISEASE; Z99.2 - DEPENDENCE ON RENAL DIALYSIS (5) Diabetes Code(s): E11.9 - TYPE 2 DIABETES MELLITUS WITHOUT COMPLICATIONS
[2018-12-01] MEDS ORDERED: HEPARIN NA (PORCINE) 5,000 UNITS/ML 1ML VIAL IVPUSH ONE (17:00)
[2018-12-01] MEDS: HEPARIN NA (PORCINE) 5,000 UNITS/ML 1ML VIAL IVPUSH SCH ×3 (17:00→19:00)
[2018-12-01] MEDS ORDERED: EPOETIN ALFA 2,000 UNIT/1 ML VIAL IVPUSH ONE (17:00)
[2018-12-01 17:52] LABS: HEMATOCRIT 30.9 % (35.4-49); HEMOGLOBIN 10.4 GM/dL (11.7-16.9); MCH 34.6 pg (25.7-33.7); MCHC 33.7 g/dl (32.0-35.9); MEAN CELL VOLUME 102.8 fl (80-96); MEAN PLT VOLUME 7.5 fl (7.5-11.1); PLATELET COUNT 250 K/MM3 (134-434); RDW 20.4 % (11.9-15.9); WHITE BLOOD COUNT 11.5 K/mm3 (4.0-10.0)
[2018-12-01 18:20] LABS: ANION GAP 10 MMOL/L (8-16); BLOOD UREA NITROGEN 52 mg/dL (7-18); CALCIUM 8.1 mg/dL (8.5-10.1); CHLORIDE 96 mmol/L (98-107); CO2 27 mmol/L (21-32); GLUCOSE,RANDOM 271 mg/dL (74-106); PHOSPHOROUS 1.7 mg/dL (2.5-4.9); POTASSIUM 4.8 mmol/L (3.5-5.1); SODIUM 133 mmol/L (136-145)
--- NOTE | 2018-12-01 18:38 | PN ---
Progress Note, Physician History of Present Illness: stable - Current Medication List Current Medications: Active Medications Acetaminophen (Tylenol -) 650 mg PO Q4H PRN PRN Reason: FEVER Aspirin (Asa -) 81 mg PO DAILY [facility] Last Admin: 12/01/18 09:01 Dose: 81 mg Atorvastatin Calcium (Lipitor -) 10 mg PO HS [facility] Last Admin: 11/30/18 22:00 Dose: 10 mg Cinacalcet (Sensipar -) 30 mg PO DAILY [facility] Last Admin: 12/01/18 09:21 Dose: 30 mg Clopidogrel Bisulfate (Plavix -) 75 mg PO DAILY [facility] Last Admin: 12/01/18 09:01 Dose: 75 mg Heparin Sodium (Porcine) (Heparin -) 300 unit IVPUSH Q1H [facility] Stop: 12/01/18 19:01 Sodium Chloride (Normal Saline -) 250 mls @ 3,000 mls/hr IV PRN PRN PRN Reason: Hypotension during Dialysis Stop: 12/02/18 14:44 Vancomycin HCl 1,000 mg/ (Dextrose) 250 mls @ 166.667 mls/hr IVPB ONCE ONE; Protocol Stop: 12/01/18 10:29 Insulin Aspart (Novolog Vial Sliding Scale -) 1 vial SQ ACHS [facility]; Protocol Last Admin: 12/01/18 17:59 Dose: Not Given Methylprednisolone Sodium Succinate (Solu-Medrol -) 40 mg IVPUSH Q8H-IV [facility] Last Admin: 12/01/18 12:15 Dose: 40 mg Metoprolol Tartrate (Lopressor -) 25 mg PO BID [facility] Last Admin: 12/01/18 10:10 Dose: Not Given Pantoprazole Sodium (Protonix -) 40 mg PO DAILY [facility] Last Admin: 12/01/18 09:01 Dose: 40 mg Sevelamer Carbonate (Renvela -) 800 mg PO TIDCM [facility] Last Admin: 12/01/18 12:15 Dose: 800 mg - Objective Vital Signs: Vital Signs Temperature 98.2 F 12/01/18 16:20 Pulse Rate 80 12/01/18 17:55 Respiratory Rate 18 12/01/18 17:55 Blood Pressure 107/57 L 12/01/18 17:55 O2 Sat by Pulse Oximetry (%) 97 12/01/18 09:00 Constitutional: Yes: No Distress HENT: Yes: Atraumatic Neck: Yes: Supple Cardiovascular: Yes: Regular Rate and Rhythm Respiratory: Yes: Rhonchi Gastrointestinal: Yes: Normal Bowel Sounds Extremities: Yes: WNL Edema: No Neurological: Yes: Alert, Oriented Labs: CBC, BMP 12/01/18 17:00 12/01/18 17:00 INR, PTT INR 3.20 (0.83-1.09) H 11/29/18 05:15 Problem List - Problems (1) Diabetes Code(s): E11.9 - TYPE 2 DIABETES MELLITUS WITHOUT COMPLICATIONS (2) Fever Code(s): R50.9 - FEVER, UNSPECIFIED (3) Hypoxia Code(s): R09.02 - HYPOXEMIA (4) Leukocytosis Code(s): D72.829 - ELEVATED WHITE BLOOD CELL COUNT, UNSPECIFIED (5) NSTEMI (non-ST elevated myocardial infarction) Code(s): I21.4 - NON-ST ELEVATION (NSTEMI) MYOCARDIAL INFARCTION (6) Pneumonia Code(s): J18.9 - PNEUMONIA, UNSPECIFIED ORGANISM (7) RSV (respiratory syncytial virus infection) Code(s): B97.4 - RESPIRATORY SYNCYTIAL VIRUS CAUSING DISEASES CLASSD ELSWHR (8) Aspiration pneumonia Code(s): J69.0 - PNEUMONITIS DUE TO INHALATION OF FOOD AND VOMIT (9) End stage renal disease on dialysis Code(s): N18.6 - END STAGE RENAL DISEASE; Z99.2 - DEPENDENCE ON RENAL DIALYSIS (10) Sepsis Code(s): A41.9 - SEPSIS, UNSPECIFIED ORGANISM Assessment/Plan Assessment/Plan ASSESSMENT AND PLAN: possible Pneumonia +RSV Severe Sepsis +Troponins likely Demand Ischemia ESRD on HD Paroxysmal Atrial Fibrillation BPH DM Plan continue currents meds follow up labs and cxs COVERING TODAY FOR
[2018-12-01 18:39] LABS: CREATININE 10.1 mg/dL (0.55-1.3)
[2018-12-01] MEDS: ATORVASTATIN CA 10 MG TABLET (FP) PO SCH (22:27)
[2018-12-02] MEDS: methylPREDNISolone NA SUCC 40 MG/1 ML VIAL IVPUSH SCH ×3 (01:32→22:58)
[2018-12-02] MEDS: INSULIN SLIDING SCALE (NOVOLOG) 1 VIAL SQ SCH ×4 (06:27→22:59)
[2018-12-02 08:28] LABS: ANION GAP 7 MMOL/L (8-16); BLOOD UREA NITROGEN 28 mg/dL (7-18); CALCIUM 8.5 mg/dL (8.5-10.1); CHLORIDE 98 mmol/L (98-107); CO2 32 mmol/L (21-32); CREATININE 6.3 mg/dL (0.55-1.3); GLUCOSE,RANDOM 253 mg/dL (74-106); POTASSIUM 4.5 mmol/L (3.5-5.1); SODIUM 137 mmol/L (136-145)
[2018-12-02] MEDS: SEVELAMER CARBONATE 800 MG TAB (FP) PO SCH ×3 (08:37→17:08)
--- NOTE | 2018-12-02 08:53 | PN ---
Progress Note, Physician - Current Medication List Current Medications: Active Medications Acetaminophen (Tylenol -) 650 mg PO Q4H PRN PRN Reason: FEVER Aspirin (Asa -) 81 mg PO DAILY [facility] Last Admin: 12/01/18 09:01 Dose: 81 mg Atorvastatin Calcium (Lipitor -) 10 mg PO HS [facility] Last Admin: 12/01/18 22:27 Dose: 10 mg Cinacalcet (Sensipar -) 30 mg PO DAILY [facility] Last Admin: 12/01/18 09:21 Dose: 30 mg Clopidogrel Bisulfate (Plavix -) 75 mg PO DAILY [facility] Last Admin: 12/01/18 09:01 Dose: 75 mg Sodium Chloride (Normal Saline -) 250 mls @ 3,000 mls/hr IV PRN PRN PRN Reason: Hypotension during Dialysis Stop: 12/02/18 14:44 Vancomycin HCl 1,000 mg/ (Dextrose) 250 mls @ 166.667 mls/hr IVPB ONCE ONE; Protocol Stop: 12/01/18 10:29 Insulin Aspart (Novolog Vial Sliding Scale -) 1 vial SQ ACHS [facility]; Protocol Last Admin: 12/02/18 06:27 Dose: 2 unit Methylprednisolone Sodium Succinate (Solu-Medrol -) 40 mg IVPUSH Q8H-IV [facility] Last Admin: 12/02/18 01:32 Dose: 40 mg Metoprolol Tartrate (Lopressor -) 25 mg PO BID [facility] Last Admin: 12/01/18 22:27 Dose: 25 mg Pantoprazole Sodium (Protonix -) 40 mg PO DAILY [facility] Last Admin: 12/01/18 09:01 Dose: 40 mg Sevelamer Carbonate (Renvela -) 800 mg PO TIDCM [facility] Last Admin: 12/02/18 08:37 Dose: 800 mg - Objective Vital Signs: Vital Signs Temperature 98.2 F 12/02/18 06:33 Pulse Rate 78 12/02/18 06:33 Respiratory Rate 20 12/02/18 06:33 Blood Pressure 131/83 12/02/18 06:33 O2 Sat by Pulse Oximetry (%) 97 12/01/18 21:00 Eyes: Yes: WNL, Conjunctiva Clear, EOM Intact HENT: Yes: WNL, Atraumatic, Normocephalic Neck: Yes: WNL, Supple, Trachea Midline Cardiovascular: Yes: WNL, Regular Rate and Rhythm Respiratory: Yes: WNL, Regular, CTA Bilaterally Gastrointestinal: Yes: WNL, Normal Bowel Sounds Genitourinary: Yes: WNL Musculoskeletal: Yes: WNL Extremities: Yes: WNL Edema: No Integumentary: Yes: WNL Neurological: Yes: WNL, Alert, Oriented ...Motor Strength: WNL Psychiatric: Yes: WNL Labs: CBC, BMP 12/01/18 17:00 12/02/18 06:30 INR, PTT INR 3.20 (0.83-1.09) H 11/29/18 05:15 Assessment/Plan IMP: ESRD on HD Fever, SIRS: RSV + Prior CVA, PAF on warfarin + TnI: Suspect demand ischemia secondary to infection REC: 1. Follow cultures, treat underlying infection; abx as per ICU team and ID 2. Echo showed normal LVEF, moderate to severe MR and PHTN. 3. To continue ASA, beta jl, statin, supplimental O2 4. INR 2-3 (PAF) 5. Once infectious source identified and treated, will need ischemic evaluation. 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 Laboy, his primary certified dietary manager. Has not required stress test recently. Will plan for stress MPI prior to discharge. TnI trended down, remains asx Coverage for dr. Coles
[2018-12-02] MEDS ORDERED: PT OWN MED DRAWER 7, Y5N ONE (08:58)
[2018-12-02] MEDS: METOPROLOL TARTRATE 25 MG TABLET (FP) PO SCH ×2 (09:36→22:58)
[2018-12-02] MEDS: CINACALCET HCL 30 MG TAB (FP) PO SCH (09:36)
[2018-12-02] MEDS: CLOPIDOGREL BISULFATE 75 MG TABLET (FP) PO SCH (09:36)
[2018-12-02] MEDS: ASPIRIN 81 MG CHEWABLE TABLETS PO SCH (09:36)
[2018-12-02] MEDS: PANTOPRAZOLE 40 MG TABLET (FP) PO SCH (09:36)
--- NOTE | 2018-12-02 10:25 | PN ---
Progress Note (short form) - Note Progress Note: Renal follow up for ESRD Pt seen and examined in step down no acute complaints feels well s/p HD yesterday Vital Signs Temperature 98.2 F 12/02/18 06:33 Pulse Rate 78 12/02/18 06:33 Respiratory Rate 19 12/02/18 09:00 Blood Pressure 131/83 12/02/18 06:33 O2 Sat by Pulse Oximetry (%) 97 12/02/18 09:00 Intake & Output 11/29/18 11/30/18 12/01/18 12/02/18 23:59 23:59 23:59 23:59 Intake Total 287 63 0638 150 Balance 920 93 1560 150 Weight 87.997 kg 84.141 kg 87.271 kg 86.273 kg NAD awake and alert cTA neck supple, no JVD no LE edema CBC, BMP 12/01/18 17:00 12/02/18 06:30 Current Medications Acetaminophen (Tylenol -) 650 mg PO Q4H PRN PRN Reason: FEVER Aspirin (Asa -) 81 mg PO DAILY [facility] Last Admin: 12/02/18 09:36 Dose: 81 mg Atorvastatin Calcium (Lipitor -) 10 mg PO HS [facility] Last Admin: 12/01/18 22:27 Dose: 10 mg Cinacalcet (Sensipar -) 30 mg PO DAILY [facility] Last Admin: 12/02/18 09:36 Dose: 30 mg Clopidogrel Bisulfate (Plavix -) 75 mg PO DAILY [facility] Last Admin: 12/02/18 09:36 Dose: 75 mg Sodium Chloride (Normal Saline -) 250 mls @ 3,000 mls/hr IV PRN PRN PRN Reason: Hypotension during Dialysis Stop: 12/02/18 14:44 Vancomycin HCl 1,000 mg/ (Dextrose) 250 mls @ 166.667 mls/hr IVPB ONCE ONE; Protocol Stop: 12/01/18 10:29 Insulin Aspart (Novolog Vial Sliding Scale -) 1 vial SQ ACHS [facility]; Protocol Last Admin: 12/02/18 06:27 Dose: 2 unit Methylprednisolone Sodium Succinate (Solu-Medrol -) 40 mg IVPUSH Q8H-IV [facility] Last Admin: 12/02/18 09:36 Dose: 40 mg Metoprolol Tartrate (Lopressor -) 25 mg PO BID [facility] Last Admin: 12/02/18 09:36 Dose: 25 mg Pantoprazole Sodium (Protonix -) 40 mg PO DAILY [facility] Last Admin: 12/02/18 09:36 Dose: 40 mg Sevelamer Carbonate (Renvela -) 800 mg PO TIDCM [facility] Last Admin: 12/02/18 08:37 Dose: 800 mg 73 year old gentleman with hx of ESRD on HD (TTS), Hypertension, DM, Afib on coumadin, HLD, TIA, dysphagia who presented to the ED from outpatient dialysis with chills, productive cough and elevated HR at dialysis. #Chills/URI/r/o bacterial PNA, RSV + #Rising Cardiac enzymes r/o ACS #ESRD on HD #Chronic Anemia #Renal Osteodystrophy s/p dialysis yesterday, tolerated it well was unable to use AVG yesterday clinically improved Vancomycin held yesterday because of high levels, will repeat level with next HD Taper steroids as per pulmonary Thank you Will follow
--- NOTE | 2018-12-02 11:18 | PN ---
Progress Note, Physician History of Present Illness: PULMONARY ALERT,FEELING BETTER,LESS DYSPNEIC,LESS COUGH - Current Medication List Current Medications: Active Medications Acetaminophen (Tylenol -) 650 mg PO Q4H PRN PRN Reason: FEVER Aspirin (Asa -) 81 mg PO DAILY [facility] Last Admin: 12/02/18 09:36 Dose: 81 mg Atorvastatin Calcium (Lipitor -) 10 mg PO HS [facility] Last Admin: 12/01/18 22:27 Dose: 10 mg Cinacalcet (Sensipar -) 30 mg PO DAILY [facility] Last Admin: 12/02/18 09:36 Dose: 30 mg Clopidogrel Bisulfate (Plavix -) 75 mg PO DAILY [facility] Last Admin: 12/02/18 09:36 Dose: 75 mg Sodium Chloride (Normal Saline -) 250 mls @ 3,000 mls/hr IV PRN PRN PRN Reason: Hypotension during Dialysis Stop: 12/02/18 14:44 Vancomycin HCl 1,000 mg/ (Dextrose) 250 mls @ 166.667 mls/hr IVPB ONCE ONE; Protocol Stop: 12/01/18 10:29 Insulin Aspart (Novolog Vial Sliding Scale -) 1 vial SQ ACHS [facility]; Protocol Last Admin: 12/02/18 06:27 Dose: 2 unit Methylprednisolone Sodium Succinate (Solu-Medrol -) 40 mg IVPUSH Q8H-IV [facility] Last Admin: 12/02/18 09:36 Dose: 40 mg Metoprolol Tartrate (Lopressor -) 25 mg PO BID [facility] Last Admin: 12/02/18 09:36 Dose: 25 mg Pantoprazole Sodium (Protonix -) 40 mg PO DAILY [facility] Last Admin: 12/02/18 09:36 Dose: 40 mg Sevelamer Carbonate (Renvela -) 800 mg PO TIDCM [facility] Last Admin: 12/02/18 08:37 Dose: 800 mg - Objective Vital Signs: Vital Signs Temperature 98.2 F 12/02/18 06:33 Pulse Rate 78 12/02/18 06:33 Respiratory Rate 19 12/02/18 09:00 Blood Pressure 131/83 12/02/18 06:33 O2 Sat by Pulse Oximetry (%) 97 12/02/18 09:00 Constitutional: Yes: Well Nourished, Calm Eyes: Yes: WNL HENT: Yes: WNL Neck: Yes: WNL Cardiovascular: Yes: Regular Rate and Rhythm, S1, S2 Respiratory: Yes: Rhonchi, Wheezes (SCATTERED BOB RHONCHI AND WHEEZES) Gastrointestinal: Yes: Normal Bowel Sounds, Soft Extremities: Yes: WNL Edema: No Labs: CBC, BMP 12/01/18 17:00 12/02/18 06:30 INR, PTT INR 3.20 (0.83-1.09) H 11/29/18 05:15 - ....Imaging Chest X-ray: Report Reviewed, Image Reviewed Problem List - Problems (1) RSV (respiratory syncytial virus infection) Code(s): B97.4 - RESPIRATORY SYNCYTIAL VIRUS CAUSING DISEASES CLASSD ELSWHR (2) Diabetes Code(s): E11.9 - TYPE 2 DIABETES MELLITUS WITHOUT COMPLICATIONS (3) Elevated troponin Code(s): R74.8 - ABNORMAL LEVELS OF OTHER SERUM ENZYMES (4) Fever Code(s): R50.9 - FEVER, UNSPECIFIED (5) Hypoxia Code(s): R09.02 - HYPOXEMIA (6) NSTEMI (non-ST elevated myocardial infarction) Code(s): I21.4 - NON-ST ELEVATION (NSTEMI) MYOCARDIAL INFARCTION (7) Atrial fibrillation Code(s): I48.91 - UNSPECIFIED ATRIAL FIBRILLATION (8) End stage renal disease on dialysis Code(s): N18.6 - END STAGE RENAL DISEASE; Z99.2 - DEPENDENCE ON RENAL DIALYSIS Assessment/Plan ASSESSMENT AND PLAN: r/o Pneumonia +RSV Severe Sepsis resolved +Troponins likely Demand Ischemia ESRD on HD Paroxysmal Atrial Fibrillation BPH DM - antibiotics - HD per renal - rate control - ASA, plavix - beta jl, statin - continue anticoagulation to keep INR 2-3 - short course of juana ARREOLA
--- NOTE | 2018-12-02 20:42 | PN ---
Progress Note, Physician History of Present Illness: No new complaints - Current Medication List Current Medications: Active Medications Acetaminophen (Tylenol -) 650 mg PO Q4H PRN PRN Reason: FEVER Aspirin (Asa -) 81 mg PO DAILY [facility] Last Admin: 12/02/18 09:36 Dose: 81 mg Atorvastatin Calcium (Lipitor -) 10 mg PO HS [facility] Last Admin: 12/01/18 22:27 Dose: 10 mg Cinacalcet (Sensipar -) 30 mg PO DAILY [facility] Last Admin: 12/02/18 09:36 Dose: 30 mg Clopidogrel Bisulfate (Plavix -) 75 mg PO DAILY [facility] Last Admin: 12/02/18 09:36 Dose: 75 mg Vancomycin HCl 1,000 mg/ (Dextrose) 250 mls @ 166.667 mls/hr IVPB ONCE ONE; Protocol Stop: 12/01/18 10:29 Insulin Aspart (Novolog Vial Sliding Scale -) 1 vial SQ ACHS [facility]; Protocol Last Admin: 12/02/18 17:07 Dose: 8 unit Methylprednisolone Sodium Succinate (Solu-Medrol -) 40 mg IVPUSH Q12H [facility] Metoprolol Tartrate (Lopressor -) 25 mg PO BID [facility] Last Admin: 12/02/18 09:36 Dose: 25 mg Pantoprazole Sodium (Protonix -) 40 mg PO DAILY [facility] Last Admin: 12/02/18 09:36 Dose: 40 mg Sevelamer Carbonate (Renvela -) 800 mg PO TIDCM [facility] Last Admin: 12/02/18 17:08 Dose: 800 mg - Objective Vital Signs: Vital Signs Temperature 98.1 F 12/02/18 14:00 Pulse Rate 98 H 12/02/18 14:00 Respiratory Rate 18 12/02/18 14:00 Blood Pressure 112/62 12/02/18 14:00 O2 Sat by Pulse Oximetry (%) 97 12/02/18 09:00 Constitutional: Yes: Well Nourished Cardiovascular: Yes: WNL, Regular Rate and Rhythm Respiratory: Yes: Diminished Gastrointestinal: Yes: WNL, Normal Bowel Sounds, Soft Edema: No Labs: CBC, BMP 12/01/18 17:00 12/02/18 06:30 INR, PTT INR 3.20 (0.83-1.09) H 11/29/18 05:15 Problem List - Problems (1) Sepsis Code(s): A41.9 - SEPSIS, UNSPECIFIED ORGANISM (2) Anemia Assessment/Plan: Cont epogin Due to renal dz Monitor H/H Code(s): D64.9 - ANEMIA, UNSPECIFIED (3) Diabetes Assessment/Plan: Cont sliding scale w/ coverage Code(s): E11.9 - TYPE 2 DIABETES MELLITUS WITHOUT COMPLICATIONS (4) Elevated troponin Assessment/Plan: Due to demand ischemia from sepsis? Cont plavix/asa/BB Echo noted Code(s): R74.8 - ABNORMAL LEVELS OF OTHER SERUM ENZYMES (5) HLD (hyperlipidemia) Assessment/Plan: Cont lipitor Code(s): E78.5 - HYPERLIPIDEMIA, UNSPECIFIED (6) HTN (hypertension) Assessment/Plan: Bp improved Cont metoprolol Code(s): I10 - ESSENTIAL (PRIMARY) HYPERTENSION (7) End stage renal disease on dialysis Assessment/Plan: Dialysis as per renal Cont renvela/sensipar Code(s): N18.6 - END STAGE RENAL DISEASE; Z99.2 - DEPENDENCE ON RENAL DIALYSIS (8) Respiratory distress Assessment/Plan: (+) RSV Cont IV soumedrol/vanco Due to sepsis BC remain negative Code(s): R06.00 - DYSPNEA, UNSPECIFIED (9) BPH (benign prostatic hyperplasia) Code(s): N40.0 - BENIGN PROSTATIC HYPERPLASIA WITHOUT LOWER URINRY TRACT SYMP
[2018-12-02] MEDS: ATORVASTATIN CA 10 MG TABLET (FP) PO SCH (22:59)
[2018-12-03] MEDS: INSULIN SLIDING SCALE (NOVOLOG) 1 VIAL SQ SCH ×4 (06:24→21:48)
[2018-12-03 06:33] LABS: BASO % 0.1 % (0-2.0); HEMATOCRIT 30.4 % (35.4-49); HEMOGLOBIN 9.7 GM/dL (11.7-16.9); LYMPH % 7.1 % (8-40); MCH 32.8 pg (25.7-33.7); MCHC 31.7 g/dl (32.0-35.9); MEAN CELL VOLUME 103.4 fl (80-96); MEAN PLT VOLUME 7.2 fl (7.5-11.1); MONO % 7.8 % (3.8-10.2); PLATELET COUNT 250 K/MM3 (134-434); RBC 2.94 M/mm3 (4.00-5.60); RDW 19.9 % (11.9-15.9); WHITE BLOOD COUNT 18.9 K/mm3 (4.0-10.0)
[2018-12-03 06:42] LABS: INR 1.12 (0.83-1.09); PROTHROMBIN TIME (PATIENT) 13.2 SEC (9.7-13.0)
[2018-12-03 07:09] LABS: ALBUMIN 2.7 g/dl (3.4-5.0); ALK PHOS 89 U/L (45-117); ANION GAP 9 MMOL/L (8-16); BILIRUBIN,TOTAL 0.4 mg/dL (0.2-1); BLOOD UREA NITROGEN 46 mg/dL (7-18); CALCIUM 8.3 mg/dL (8.5-10.1); CHLORIDE 100 mmol/L (98-107); CO2 30 mmol/L (21-32); GLUCOSE,RANDOM 128 mg/dL (74-106); POTASSIUM 4.1 mmol/L (3.5-5.1); SGOT/AST 20 U/L (15-37); SGPT/ALT 28 U/L (13-61); SODIUM 138 mmol/L (136-145); TOT PROT 6.4 g/dl (6.4-8.2)
[2018-12-03 07:34] LABS: CREATININE 8.4 mg/dL (0.55-1.3)
[2018-12-03] MEDS ORDERED: PT OWN MED DRAWER 7, Y5N ONE ×3 (08:45→18:28)
--- NOTE | 2018-12-03 08:56 | PN ---
Progress Note, Physician Chief Complaint: seen and examined, no chest pain Still on isolation - Current Medication List Current Medications: Active Medications Acetaminophen (Tylenol -) 650 mg PO Q4H PRN PRN Reason: FEVER Aspirin (Asa -) 81 mg PO DAILY [facility] Last Admin: 12/02/18 09:36 Dose: 81 mg Atorvastatin Calcium (Lipitor -) 10 mg PO HS [facility] Last Admin: 12/02/18 22:59 Dose: 10 mg Cinacalcet (Sensipar -) 30 mg PO DAILY [facility] Last Admin: 12/02/18 09:36 Dose: 30 mg Clopidogrel Bisulfate (Plavix -) 75 mg PO DAILY [facility] Last Admin: 12/02/18 09:36 Dose: 75 mg Vancomycin HCl 1,000 mg/ (Dextrose) 250 mls @ 166.667 mls/hr IVPB ONCE ONE; Protocol Stop: 12/01/18 10:29 Insulin Aspart (Novolog Vial Sliding Scale -) 1 vial SQ ACHS [facility]; Protocol Last Admin: 12/03/18 06:24 Dose: Not Given Methylprednisolone Sodium Succinate (Solu-Medrol -) 40 mg IVPUSH Q12H [facility] Last Admin: 12/02/18 22:58 Dose: 40 mg Metoprolol Tartrate (Lopressor -) 25 mg PO BID [facility] Last Admin: 12/02/18 22:58 Dose: 25 mg Pantoprazole Sodium (Protonix -) 40 mg PO DAILY [facility] Last Admin: 12/02/18 09:36 Dose: 40 mg Sevelamer Carbonate (Renvela -) 800 mg PO TIDCM [facility] Last Admin: 12/02/18 17:08 Dose: 800 mg - Objective Vital Signs: Vital Signs Temperature 98.0 F 12/03/18 07:22 Pulse Rate 67 12/03/18 07:22 Respiratory Rate 18 12/03/18 07:22 Blood Pressure 104/52 L 12/03/18 07:22 O2 Sat by Pulse Oximetry (%) 98 12/02/18 21:00 Constitutional: Yes: No Distress Cardiovascular: Yes: Regular Rate and Rhythm Respiratory: Yes: CTA Bilaterally Gastrointestinal: Yes: Soft Edema: No Labs: CBC, BMP 12/03/18 05:00 12/03/18 05:00 INR, PTT INR 1.12 (0.83-1.09) H 12/03/18 05:00 Microbiology 11/27/18 15:48 Blood - Peripheral Venous Blood Culture - Final NO GROWTH AFTER 5 DAYS INCUBATION 11/27/18 15:48 Blood - Peripheral Venous Blood Culture - Final NO GROWTH AFTER 5 DAYS INCUBATION Laboratory Tests 12/03/18 12/03/18 12/03/18 05:00 05:00 05:00 WBC 18.9 H Hgb 9.7 L Plt Count 250 INR 1.12 H Potassium 4.1 BUN 46 H Creatinine 8.4 H* - ....Imaging EKG: Image Reviewed (NSR, APCs) Assessment/Plan IMP: ESRD on HD Fever, SIRS: RSV + Prior CVA, PAF on warfarin + TnI: Suspect demand ischemia secondary to infection REC: 1. Follow cultures, treat underlying infection; abx as per ICU team and ID 2. Echo showed normal LVEF, moderate to severe MR and PHTN. 3. To continue ASA, beta jl, statin, supplimental O2 4. INR 2-3 (PAF). INR subtherapeutic, start heparin gtts 5. Once infectious source identified and treated, will need ischemic evaluation. 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 Laboy, his primary entry level mechanical engineer. Has not required stress test recently. Will plan for stress MPI prior to discharge. TnI trended down, remains asx Needs to be off isolation to have stress test Will follow
[2018-12-03] MEDS ORDERED: HEPARIN NA (PORCINE) 5,000 UNITS/ML 1ML VIAL IVPUSH PRN ×2 (08:57)
[2018-12-03] MEDS: SEVELAMER CARBONATE 800 MG TAB (FP) PO SCH ×3 (09:06→17:23)
[2018-12-03] MEDS: METOPROLOL TARTRATE 25 MG TABLET (FP) PO SCH ×2 (09:07→21:48)
[2018-12-03] MEDS: CINACALCET HCL 30 MG TAB (FP) PO SCH (09:07)
[2018-12-03] MEDS: PANTOPRAZOLE 40 MG TABLET (FP) PO SCH (09:07)
[2018-12-03] MEDS: ASPIRIN 81 MG CHEWABLE TABLETS PO SCH (09:07)
[2018-12-03] MEDS: methylPREDNISolone NA SUCC 40 MG/1 ML VIAL IVPUSH SCH ×2 (09:07→21:48)
[2018-12-03] MEDS: CLOPIDOGREL BISULFATE 75 MG TABLET (FP) PO SCH (09:07)
[2018-12-03 09:09] LABS: ACANTHOCYTES 1+; ANISOCYTOSIS 1+; MACROCYTOSIS 1+; PLATELET ESTIMATE NORMAL
[2018-12-03] MEDS: HEPARIN - 25,000 UNIT in SODIUM CHLORIDE 495 ML IV SCH (10:44)
[2018-12-03 11:55] VITALS: BMI 30.5
--- NOTE | 2018-12-03 12:17 | PN ---
Progress Note (short form) - Note Progress Note: Renal follow up for ESRD Pt seen and examined at the bedside feels well denies any cough or sob last dialysis Monday no fever or chills Vital Signs Temperature 98.4 F 12/03/18 09:00 Pulse Rate 70 12/03/18 09:00 Respiratory Rate 18 12/03/18 09:00 Blood Pressure 110/58 L 12/03/18 09:00 O2 Sat by Pulse Oximetry (%) 98 12/03/18 09:00 Intake & Output 11/30/18 12/01/18 12/02/18 12/03/18 23:59 23:59 23:59 23:59 Intake Total 50 1240 1050 200 Balance 50 1240 1050 200 Weight 84.141 kg 87.271 kg 86.273 kg 88.632 kg NAD awake and alert cTA neck supple, no JVD no LE edema CBC, BMP 12/03/18 05:00 12/03/18 05:00 Current Medications Acetaminophen (Tylenol -) 650 mg PO Q4H PRN PRN Reason: FEVER Aspirin (Asa -) 81 mg PO DAILY [facility] Last Admin: 12/03/18 09:07 Dose: 81 mg Atorvastatin Calcium (Lipitor -) 10 mg PO HS [facility] Last Admin: 12/02/18 22:59 Dose: 10 mg Cinacalcet (Sensipar -) 30 mg PO DAILY [facility] Last Admin: 12/03/18 09:07 Dose: 30 mg Clopidogrel Bisulfate (Plavix -) 75 mg PO DAILY [facility] Last Admin: 12/03/18 09:07 Dose: 75 mg Heparin Sodium (Porcine) (Heparin -) 1,000 unit IVPUSH PRN PRN PRN Reason: Heparin Heparin Sodium (Porcine) (Heparin -) 5,000 unit IVPUSH PRN PRN PRN Reason: Heparin Vancomycin HCl 1,000 mg/ (Dextrose) 250 mls @ 166.667 mls/hr IVPB ONCE ONE; Protocol Stop: 12/01/18 10:29 Heparin Sodium (Porcine) 25, (000 unit/ Sodium Chloride) 500 mls @ 20 mls/hr IV TITR [facility]; Protocol Last Admin: 12/03/18 10:44 Dose: 1,000 unit/hr, 20 mls/hr Insulin Aspart (Novolog Vial Sliding Scale -) 1 vial SQ ACHS [facility]; Protocol Last Admin: 12/03/18 06:24 Dose: Not Given Methylprednisolone Sodium Succinate (Solu-Medrol -) 40 mg IVPUSH Q12H [facility] Last Admin: 12/03/18 09:07 Dose: 40 mg Metoprolol Tartrate (Lopressor -) 25 mg PO BID [facility] Last Admin: 12/03/18 09:07 Dose: 25 mg Pantoprazole Sodium (Protonix -) 40 mg PO DAILY [facility] Last Admin: 12/03/18 09:07 Dose: 40 mg Sevelamer Carbonate (Renvela -) 800 mg PO TIDCM [facility] Last Admin: 12/03/18 09:06 Dose: 800 mg Warfarin Sodium (Coumadin -) 2.5 mg PO DAILY@1800 [facility] 73 year old gentleman with hx of ESRD on HD (TTS), Hypertension, DM, Afib on coumadin, HLD, TIA, dysphagia who presented to the ED from outpatient dialysis with chills, productive cough and elevated HR at dialysis. 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
--- NOTE | 2018-12-03 14:56 | PN ---
Progress Note (short form) - Note Progress Note: PULMONARY States breathing is improving. +nonproductive cough. Vital Signs Period Temp Pulse Resp BP Sys/Martel Pulse Ox Last 24 Hr 97.8 F-98.4 F 63-82 18-18 99-122/51-73 98-98 Gen: NAD at rest Heart: RRR Lung: decreased breath sounds at the bases Abd: soft, nontender Ext: no edema CBC, BMP 12/03/18 05:00 12/03/18 05:00 Active Medications Acetaminophen (Tylenol -) 650 mg PO Q4H PRN PRN Reason: FEVER Aspirin (Asa -) 81 mg PO DAILY [facility] Last Admin: 12/03/18 09:07 Dose: 81 mg Atorvastatin Calcium (Lipitor -) 10 mg PO HS [facility] Last Admin: 12/02/18 22:59 Dose: 10 mg Cinacalcet (Sensipar -) 30 mg PO DAILY [facility] Last Admin: 12/03/18 09:07 Dose: 30 mg Clopidogrel Bisulfate (Plavix -) 75 mg PO DAILY [facility] Last Admin: 12/03/18 09:07 Dose: 75 mg Heparin Sodium (Porcine) (Heparin -) 1,000 unit IVPUSH PRN PRN PRN Reason: Heparin Heparin Sodium (Porcine) (Heparin -) 5,000 unit IVPUSH PRN PRN PRN Reason: Heparin Vancomycin HCl 1,000 mg/ (Dextrose) 250 mls @ 166.667 mls/hr IVPB ONCE ONE; Protocol Stop: 12/01/18 10:29 Heparin Sodium (Porcine) 25, (000 unit/ Sodium Chloride) 500 mls @ 20 mls/hr IV TITR [facility]; Protocol Last Admin: 12/03/18 10:44 Dose: 1,000 unit/hr, 20 mls/hr Insulin Aspart (Novolog Vial Sliding Scale -) 1 vial SQ ACHS [facility]; Protocol Last Admin: 12/03/18 12:26 Dose: 6 unit Methylprednisolone Sodium Succinate (Solu-Medrol -) 40 mg IVPUSH Q12H [facility] Last Admin: 12/03/18 09:07 Dose: 40 mg Metoprolol Tartrate (Lopressor -) 25 mg PO BID [facility] Last Admin: 12/03/18 09:07 Dose: 25 mg Pantoprazole Sodium (Protonix -) 40 mg PO DAILY [facility] Last Admin: 12/03/18 09:07 Dose: 40 mg Sevelamer Carbonate (Renvela -) 800 mg PO TIDCM [facility] Last Admin: 12/03/18 12:29 Dose: 800 mg Warfarin Sodium (Coumadin -) 2.5 mg PO DAILY@1800 [facility] A/P r/o Pneumonia +RSV Severe Sepsis +Troponins likely Demand Ischemia ESRD on HD Paroxysmal Atrial Fibrillation BPH DM - antibiotics per ID - completed empiric tamiflu - HD per renal - rate control - ASA, plavix - beta jl, statin - continue anticoagulation to keep INR 2-3
[2018-12-03] MEDS ORDERED: WARFARIN NA 2.5 MG TABLET (FP) PO SCH (18:00)
--- NOTE | 2018-12-03 18:00 | PN ---
Progress Note (short form) - Note Progress Note: overall improved s/p HD RSV antigen positive afebrile less cough now on steroids Vital Signs Period Temp Pulse Resp BP Sys/Martel Pulse Ox Last 24 Hr 97.8 F-98.4 F 63-82 18-18 99-122/51-73 98-98 cor-rrr lungs clear abd soft,nt ext no edema a/p hypoxia resolved +RSV antigen afebrile doing well infected AVF- is completing 6 weeks of vancomycin with HD per renal, check trough in am and redose less then 15-level 21.3 today +troponins- f/u per cardiology diabetes vanco dosing per renal can d/c isolation-remains afebrile with minimal cough please call back if needed Problem List - Problems (1) Pneumonia Code(s): J18.9 - PNEUMONIA, UNSPECIFIED ORGANISM (2) Hypoxia Code(s): R09.02 - HYPOXEMIA (3) Elevated troponin Code(s): R74.8 - ABNORMAL LEVELS OF OTHER SERUM ENZYMES (4) End stage renal disease on dialysis Code(s): N18.6 - END STAGE RENAL DISEASE; Z99.2 - DEPENDENCE ON RENAL DIALYSIS (5) Diabetes Code(s): E11.9 - TYPE 2 DIABETES MELLITUS WITHOUT COMPLICATIONS
[2018-12-03] MEDS: ATORVASTATIN CA 10 MG TABLET (FP) PO SCH (21:48)
--- NOTE | 2018-12-04 00:24 | PN ---
Progress Note, Physician History of Present Illness: Pt seen and examined 12/03/18 however note is being entered now - Current Medication List Current Medications: Active Medications Acetaminophen (Tylenol -) 650 mg PO Q4H PRN PRN Reason: FEVER Aspirin (Asa -) 81 mg PO DAILY [facility] Last Admin: 12/03/18 09:07 Dose: 81 mg Atorvastatin Calcium (Lipitor -) 10 mg PO HS [facility] Last Admin: 12/03/18 21:48 Dose: 10 mg Cinacalcet (Sensipar -) 30 mg PO DAILY [facility] Last Admin: 12/03/18 09:07 Dose: 30 mg Clopidogrel Bisulfate (Plavix -) 75 mg PO DAILY [facility] Last Admin: 12/03/18 09:07 Dose: 75 mg Heparin Sodium (Porcine) (Heparin -) 1,000 unit IVPUSH PRN PRN PRN Reason: Heparin Heparin Sodium (Porcine) (Heparin -) 5,000 unit IVPUSH PRN PRN PRN Reason: Heparin Last Admin: 12/03/18 17:40 Dose: 5,000 unit Vancomycin HCl 1,000 mg/ (Dextrose) 250 mls @ 166.667 mls/hr IVPB ONCE ONE; Protocol Stop: 12/01/18 10:29 Heparin Sodium (Porcine) 25, (000 unit/ Sodium Chloride) 500 mls @ 20 mls/hr IV TITR [facility]; Protocol Last Titration: 12/03/18 17:41 Dose: 1,150 unit/hr, 23 mls/hr Insulin Aspart (Novolog Vial Sliding Scale -) 1 vial SQ ACHS [facility]; Protocol Last Admin: 12/03/18 21:48 Dose: 10 unit Methylprednisolone Sodium Succinate (Solu-Medrol -) 40 mg IVPUSH Q12H [facility] Last Admin: 12/03/18 21:48 Dose: 40 mg Metoprolol Tartrate (Lopressor -) 25 mg PO BID [facility] Last Admin: 12/03/18 21:48 Dose: 25 mg Pantoprazole Sodium (Protonix -) 40 mg PO DAILY [facility] Last Admin: 12/03/18 09:07 Dose: 40 mg Sevelamer Carbonate (Renvela -) 800 mg PO TIDCM [facility] Last Admin: 12/03/18 17:23 Dose: 800 mg Warfarin Sodium (Coumadin -) 2.5 mg PO DAILY@1800 [facility] Last Admin: 12/03/18 17:23 Dose: 2.5 mg - Objective Vital Signs: Vital Signs Temperature 97.7 F 12/03/18 18:00 Pulse Rate 70 12/03/18 18:00 Respiratory Rate 18 12/03/18 18:00 Blood Pressure 112/53 L 12/03/18 18:00 O2 Sat by Pulse Oximetry (%) 98 12/03/18 09:00 Neck: Yes: WNL, Supple Cardiovascular: Yes: WNL, Regular Rate and Rhythm Respiratory: Yes: WNL, Regular, CTA Bilaterally Gastrointestinal: Yes: WNL, Normal Bowel Sounds, Soft Labs: CBC, BMP 12/03/18 05:00 12/03/18 05:00 INR, PTT INR 1.12 (0.83-1.09) H 12/03/18 05:00 Problem List - Problems (1) Elevated troponin Assessment/Plan: Due to demand ischemia from sepsis? Cont plavix/asa/BB Echo noted Pt for stress test in am Code(s): R74.8 - ABNORMAL LEVELS OF OTHER SERUM ENZYMES (2) Sepsis Assessment/Plan: Resolving Infected AVF Completing 6 weeks of IV vanco Check vanco trough in am Pt is now off isolation Code(s): A41.9 - SEPSIS, UNSPECIFIED ORGANISM (3) Respiratory distress Assessment/Plan: (+) RSV Cont IV solumedrol and taper as possible Due to sepsis BC remain negative Code(s): R06.00 - DYSPNEA, UNSPECIFIED (4) Anemia Assessment/Plan: Cont epogin Due to renal dz Monitor H/H Code(s): D64.9 - ANEMIA, UNSPECIFIED (5) Diabetes Assessment/Plan: Cont sliding scale w/ coverage Code(s): E11.9 - TYPE 2 DIABETES MELLITUS WITHOUT COMPLICATIONS (6) HLD (hyperlipidemia) Assessment/Plan: Cont lipitor Code(s): E78.5 - HYPERLIPIDEMIA, UNSPECIFIED (7) HTN (hypertension) Assessment/Plan: Bp improved Cont metoprolol Code(s): I10 - ESSENTIAL (PRIMARY) HYPERTENSION (8) End stage renal disease on dialysis Assessment/Plan: Dialysis as per renal Cont renvela/sensipar Code(s): N18.6 - END STAGE RENAL DISEASE; Z99.2 - DEPENDENCE ON RENAL DIALYSIS (9) BPH (benign prostatic hyperplasia) Code(s): N40.0 - BENIGN PROSTATIC HYPERPLASIA WITHOUT LOWER URINRY TRACT SYMP
[2018-12-04] MEDS: INSULIN SLIDING SCALE (NOVOLOG) 1 VIAL SQ SCH ×4 (06:30→21:36)
[2018-12-04] MEDS ORDERED: PT OWN MED DRAWER 7, Y5N ONE ×3 (08:40→18:09)
[2018-12-04] MEDS: SEVELAMER CARBONATE 800 MG TAB (FP) PO SCH ×3 (08:55→17:50)
--- NOTE | 2018-12-04 08:57 | PN ---
Progress Note, Physician Chief Complaint: comfortable no distress OFF ISOLATION TELE: NSR APCs - Current Medication List Current Medications: Active Medications Acetaminophen (Tylenol -) 650 mg PO Q4H PRN PRN Reason: FEVER Aspirin (Asa -) 81 mg PO DAILY [facility] Last Admin: 12/03/18 09:07 Dose: 81 mg Atorvastatin Calcium (Lipitor -) 10 mg PO HS [facility] Last Admin: 12/03/18 21:48 Dose: 10 mg Cinacalcet (Sensipar -) 30 mg PO DAILY [facility] Last Admin: 12/03/18 09:07 Dose: 30 mg Clopidogrel Bisulfate (Plavix -) 75 mg PO DAILY [facility] Last Admin: 12/03/18 09:07 Dose: 75 mg Heparin Sodium (Porcine) (Heparin -) 1,000 unit IVPUSH PRN PRN PRN Reason: Heparin Heparin Sodium (Porcine) (Heparin -) 5,000 unit IVPUSH PRN PRN PRN Reason: Heparin Last Admin: 12/03/18 17:40 Dose: 5,000 unit Vancomycin HCl 1,000 mg/ (Dextrose) 250 mls @ 166.667 mls/hr IVPB ONCE ONE; Protocol Stop: 12/01/18 10:29 Heparin Sodium (Porcine) 25, (000 unit/ Sodium Chloride) 500 mls @ 20 mls/hr IV TITR [facility]; Protocol Last Titration: 12/03/18 17:41 Dose: 1,150 unit/hr, 23 mls/hr Insulin Aspart (Novolog Vial Sliding Scale -) 1 vial SQ ACHS [facility]; Protocol Last Admin: 12/04/18 06:30 Dose: 4 unit Methylprednisolone Sodium Succinate (Solu-Medrol -) 40 mg IVPUSH Q12H [facility] Last Admin: 12/03/18 21:48 Dose: 40 mg Metoprolol Tartrate (Lopressor -) 25 mg PO BID [facility] Last Admin: 12/03/18 21:48 Dose: 25 mg Pantoprazole Sodium (Protonix -) 40 mg PO DAILY [facility] Last Admin: 12/03/18 09:07 Dose: 40 mg Sevelamer Carbonate (Renvela -) 800 mg PO TIDCM [facility] Last Admin: 12/04/18 08:55 Dose: Not Given Warfarin Sodium (Coumadin -) 2.5 mg PO DAILY@1800 [facility] Last Admin: 12/03/18 17:23 Dose: 2.5 mg - Objective Vital Signs: Vital Signs Temperature 97.9 F 12/04/18 06:00 Pulse Rate 64 12/04/18 06:00 Respiratory Rate 20 12/04/18 06:00 Blood Pressure 125/69 12/04/18 06:00 O2 Sat by Pulse Oximetry (%) 98 12/03/18 21:00 Constitutional: Yes: No Distress Cardiovascular: Yes: Regular Rate and Rhythm Respiratory: Yes: Rhonchi Gastrointestinal: Yes: Soft Edema: No Neurological: Yes: Alert, Oriented Labs: CBC, BMP 12/03/18 05:00 12/03/18 05:00 INR, PTT INR 1.12 (0.83-1.09) H 12/03/18 05:00 - ....Imaging EKG: Image Reviewed Assessment/Plan IMP: ESRD on HD Fever, SIRS: RSV + Prior CVA, PAF on warfarin + TnI: Suspect demand ischemia secondary to infection REC: 1. Follow cultures, treat underlying infection; abx as per ICU team and ID 2. Echo showed normal LVEF, moderate to severe MR and PHTN. 3. To continue ASA, beta jl, statin, supplimental O2 4. INR 2-3 (PAF). INR subtherapeutic, start heparin gtts; resumed coumadin. 5. Now that off isolation, can have stress test: 2 day Lexiscan MIBI
[2018-12-04] MEDS: CLOPIDOGREL BISULFATE 75 MG TABLET (FP) PO SCH (09:12)
[2018-12-04] MEDS: ASPIRIN 81 MG CHEWABLE TABLETS PO SCH (09:12)
[2018-12-04] MEDS: HEPARIN - 25,000 UNIT in SODIUM CHLORIDE 495 ML IV SCH (09:12)
[2018-12-04] MEDS: METOPROLOL TARTRATE 25 MG TABLET (FP) PO SCH ×2 (09:12→21:37)
[2018-12-04] MEDS: CINACALCET HCL 30 MG TAB (FP) PO SCH (09:14)
[2018-12-04] MEDS: methylPREDNISolone NA SUCC 40 MG/1 ML VIAL IVPUSH SCH (09:14)
[2018-12-04] MEDS: PANTOPRAZOLE 40 MG TABLET (FP) PO SCH (12:21)
[2018-12-04 13:05] LABS: BASO % 0.1 % (0-2.0); HEMATOCRIT 32.7 % (35.4-49); HEMOGLOBIN 10.9 GM/dL (11.7-16.9); LYMPH % 4.2 % (8-40); MCH 34.6 pg (25.7-33.7); MCHC 33.3 g/dl (32.0-35.9); MEAN CELL VOLUME 103.8 fl (80-96); MEAN PLT VOLUME 7.1 fl (7.5-11.1); MONO % 3.4 % (3.8-10.2); NEUT % 92.3 % (42.8-82.8); PLATELET COUNT 314 K/MM3 (134-434); RBC 3.15 M/mm3 (4.00-5.60); RDW 20.7 % (11.9-15.9); WHITE BLOOD COUNT 26.6 K/mm3 (4.0-10.0)
--- NOTE | 2018-12-04 13:08 | PN ---
Progress Note, Physician History of Present Illness: PULMONARY ALERT,NO DISTRESS,OOB-CHAIR,-SOB,LESS COUGH - Current Medication List Current Medications: Active Medications Acetaminophen (Tylenol -) 650 mg PO Q4H PRN PRN Reason: FEVER Aspirin (Asa -) 81 mg PO DAILY [facility] Last Admin: 12/04/18 09:12 Dose: 81 mg Atorvastatin Calcium (Lipitor -) 10 mg PO HS [facility] Last Admin: 12/03/18 21:48 Dose: 10 mg Cinacalcet (Sensipar -) 30 mg PO DAILY [facility] Last Admin: 12/04/18 09:14 Dose: 30 mg Clopidogrel Bisulfate (Plavix -) 75 mg PO DAILY [facility] Last Admin: 12/04/18 09:12 Dose: 75 mg Heparin Sodium (Porcine) (Heparin -) 1,000 unit IVPUSH PRN PRN PRN Reason: Heparin Heparin Sodium (Porcine) (Heparin -) 5,000 unit IVPUSH PRN PRN PRN Reason: Heparin Last Admin: 12/03/18 17:40 Dose: 5,000 unit Vancomycin HCl 1,000 mg/ (Dextrose) 250 mls @ 166.667 mls/hr IVPB ONCE ONE; Protocol Stop: 12/01/18 10:29 Heparin Sodium (Porcine) 25, (000 unit/ Sodium Chloride) 500 mls @ 20 mls/hr IV TITR [facility]; Protocol Last Admin: 12/04/18 09:12 Dose: 1,050 unit/hr, 21 mls/hr Insulin Aspart (Novolog Vial Sliding Scale -) 1 vial SQ ACHS [facility]; Protocol Last Admin: 12/04/18 12:30 Dose: 4 unit Methylprednisolone Sodium Succinate (Solu-Medrol -) 40 mg IVPUSH Q12H [facility] Last Admin: 12/04/18 09:14 Dose: 40 mg Metoprolol Tartrate (Lopressor -) 25 mg PO BID [facility] Last Admin: 12/04/18 09:12 Dose: 25 mg Pantoprazole Sodium (Protonix -) 40 mg PO DAILY [facility] Last Admin: 12/04/18 12:21 Dose: 40 mg Sevelamer Carbonate (Renvela -) 800 mg PO TIDCM [facility] Last Admin: 12/04/18 12:22 Dose: 800 mg Warfarin Sodium (Coumadin -) 2.5 mg PO DAILY@1800 [facility] Last Admin: 12/03/18 17:23 Dose: 2.5 mg - Objective Vital Signs: Vital Signs Temperature 97.8 F 12/04/18 09:05 Pulse Rate 66 12/04/18 09:05 Respiratory Rate 18 12/04/18 09:05 Blood Pressure 118/62 12/04/18 09:05 O2 Sat by Pulse Oximetry (%) 98 12/04/18 09:00 Constitutional: Yes: Well Nourished, Calm Eyes: Yes: WNL HENT: Yes: WNL Neck: Yes: WNL Cardiovascular: Yes: Regular Rate and Rhythm, S1, S2 Respiratory: Yes: Wheezes (FEW SCATTERED WHEEZES) Gastrointestinal: Yes: Normal Bowel Sounds, Soft Extremities: Yes: WNL Edema: No Labs: INR, PTT INR 1.12 (0.83-1.09) H 12/03/18 05:00 Problem List - Problems (1) RSV (respiratory syncytial virus infection) Code(s): B97.4 - RESPIRATORY SYNCYTIAL VIRUS CAUSING DISEASES CLASSD ELSWHR (2) Diabetes Code(s): E11.9 - TYPE 2 DIABETES MELLITUS WITHOUT COMPLICATIONS (3) Elevated troponin Code(s): R74.8 - ABNORMAL LEVELS OF OTHER SERUM ENZYMES (4) Fever Code(s): R50.9 - FEVER, UNSPECIFIED (5) Hypoxia Code(s): R09.02 - HYPOXEMIA (6) NSTEMI (non-ST elevated myocardial infarction) Code(s): I21.4 - NON-ST ELEVATION (NSTEMI) MYOCARDIAL INFARCTION (7) Atrial fibrillation Code(s): I48.91 - UNSPECIFIED ATRIAL FIBRILLATION (8) End stage renal disease on dialysis Code(s): N18.6 - END STAGE RENAL DISEASE; Z99.2 - DEPENDENCE ON RENAL DIALYSIS Assessment/Plan ASSESSMENT AND PLAN: r/o Pneumonia +RSV Severe Sepsis resolved +Troponins likely Demand Ischemia ESRD on HD Paroxysmal Atrial Fibrillation BPH DM - antibiotics per ID - HD per renal - rate control - ASA, plavix - beta jl, statin - continue anticoagulation to keep INR 2-3 - aylin ARREOLA
[2018-12-04 13:22] LABS: INR 1.13 (0.83-1.09); PROTHROMBIN TIME (PATIENT) 13.3 SEC (9.7-13.0)
[2018-12-04 14:03] LABS: ALK PHOS 99 U/L (45-117); ANION GAP 13 MMOL/L (8-16); BILIRUBIN,TOTAL 0.6 mg/dL (0.2-1); BLOOD UREA NITROGEN 71 mg/dL (7-18); CALCIUM 8.4 mg/dL (8.5-10.1); CHLORIDE 98 mmol/L (98-107); CO2 24 mmol/L (21-32); GLUCOSE,RANDOM 224 mg/dL (74-106); POTASSIUM 4.7 mmol/L (3.5-5.1); SGOT/AST 28 U/L (15-37); SGPT/ALT 42 U/L (13-61); SODIUM 134 mmol/L (136-145); TOT PROT 7.1 g/dl (6.4-8.2)
[2018-12-04 14:07] LABS: CREATININE 10.4 mg/dL (0.55-1.3)
[2018-12-04 14:44] LABS: ANISOCYTOSIS 1+; MACROCYTOSIS 1+; OVALOCYTE 1+; PLATELET ESTIMATE NORMAL
[2018-12-04] MEDS ORDERED: SODIUM CHLORIDE 250 ML IV PRN (15:05)
[2018-12-04] MEDS ORDERED: VANCOMYCIN 1 GRAM (PRE-DOCKED) 1,000 MG/250 ML BAG IVPB ONE (17:00)
[2018-12-04] MEDS: WARFARIN NA 5 MG TABLET (UD) PO SCH (17:50)
[2018-12-04] MEDS ORDERED: INSULIN SLIDING SCALE (NOVOLOG) 1 VIAL SQ ONE (18:07)
[2018-12-04] MEDS: ATORVASTATIN CA 10 MG TABLET (FP) PO SCH (21:37)
--- NOTE | 2018-12-04 23:59 | PN ---
Progress Note, Physician History of Present Illness: No new changes - Current Medication List Current Medications: Active Medications Acetaminophen (Tylenol -) 650 mg PO Q4H PRN PRN Reason: FEVER Aspirin (Asa -) 81 mg PO DAILY [facility] Last Admin: 12/04/18 09:12 Dose: 81 mg Atorvastatin Calcium (Lipitor -) 10 mg PO HS [facility] Last Admin: 12/04/18 21:37 Dose: 10 mg Cinacalcet (Sensipar -) 30 mg PO DAILY [facility] Last Admin: 12/04/18 09:14 Dose: 30 mg Clopidogrel Bisulfate (Plavix -) 75 mg PO DAILY [facility] Last Admin: 12/04/18 09:12 Dose: 75 mg Heparin Sodium (Porcine) (Heparin -) 1,000 unit IVPUSH PRN PRN PRN Reason: Heparin Heparin Sodium (Porcine) (Heparin -) 5,000 unit IVPUSH PRN PRN PRN Reason: Heparin Last Admin: 12/03/18 17:40 Dose: 5,000 unit Heparin Sodium (Porcine) 25, (000 unit/ Sodium Chloride) 500 mls @ 20 mls/hr IV TITR [facility]; Protocol Last Titration: 12/04/18 14:12 Dose: 1,000 unit/hr, 20 mls/hr Sodium Chloride (Normal Saline -) 250 mls @ 3,000 mls/hr IV PRN PRN PRN Reason: Hypotension during Dialysis Stop: 12/05/18 15:04 Insulin Aspart (Novolog Vial Sliding Scale -) 1 vial SQ ACHS [facility]; Protocol Last Admin: 12/04/18 21:36 Dose: 6 units Methylprednisolone Sodium Succinate (Solu-Medrol -) 40 mg IVPUSH DAILY [facility] Metoprolol Tartrate (Lopressor -) 25 mg PO BID [facility] Last Admin: 12/04/18 21:37 Dose: 25 mg Pantoprazole Sodium (Protonix -) 40 mg PO DAILY [facility] Last Admin: 12/04/18 12:21 Dose: 40 mg Sevelamer Carbonate (Renvela -) 800 mg PO TIDCM [facility] Last Admin: 12/04/18 17:50 Dose: 800 mg Warfarin Sodium (Coumadin -) 5 mg PO DAILY@1800 [facility] Last Admin: 12/04/18 17:50 Dose: 5 mg - Objective Vital Signs: Vital Signs Temperature 97.7 F 12/04/18 21:00 Pulse Rate 77 12/04/18 21:00 Respiratory Rate 18 12/04/18 21:00 Blood Pressure 117/64 12/04/18 21:00 O2 Sat by Pulse Oximetry (%) 98 12/04/18 20:00 Neck: Yes: WNL, Supple Cardiovascular: Yes: WNL, Regular Rate and Rhythm Respiratory: Yes: WNL, Regular, CTA Bilaterally, Other (ant chest wall) Gastrointestinal: Yes: WNL, Normal Bowel Sounds, Soft Labs: CBC, BMP 12/04/18 12:35 12/04/18 12:35 INR, PTT INR 1.13 (0.83-1.09) H 12/04/18 12:35 Problem List - Problems (1) Elevated troponin Assessment/Plan: Due to demand ischemia from sepsis? Cont plavix/asa/BB Echo noted Pt for stress test in am Code(s): R74.8 - ABNORMAL LEVELS OF OTHER SERUM ENZYMES (2) Paroxysmal A-fib Assessment/Plan: Cont IV heparin and bridge w/ coumadin Daily PT/INR Code(s): I48.0 - PAROXYSMAL ATRIAL FIBRILLATION (3) Sepsis Assessment/Plan: Resolving Infected AVF Completing 6 weeks of IV vanco wc is given w/ dialysis Code(s): A41.9 - SEPSIS, UNSPECIFIED ORGANISM (4) Respiratory distress Assessment/Plan: (+) RSV Cont IV solumedrol and taper as possible Due to sepsis BC remain negative Code(s): R06.00 - DYSPNEA, UNSPECIFIED (5) Anemia Assessment/Plan: Cont epogin Due to renal dz Monitor H/H Code(s): D64.9 - ANEMIA, UNSPECIFIED (6) Diabetes Assessment/Plan: Cont sliding scale w/ coverage Code(s): E11.9 - TYPE 2 DIABETES MELLITUS WITHOUT COMPLICATIONS (7) HLD (hyperlipidemia) Assessment/Plan: Cont lipitor Code(s): E78.5 - HYPERLIPIDEMIA, UNSPECIFIED (8) HTN (hypertension) Assessment/Plan: Bp improved Cont metoprolol Code(s): I10 - ESSENTIAL (PRIMARY) HYPERTENSION (9) End stage renal disease on dialysis Assessment/Plan: Dialysis as per renal Cont renvela/sensipar Code(s): N18.6 - END STAGE RENAL DISEASE; Z99.2 - DEPENDENCE ON RENAL DIALYSIS (10) BPH (benign prostatic hyperplasia) Code(s): N40.0 - BENIGN PROSTATIC HYPERPLASIA WITHOUT LOWER URINRY TRACT SYMP
[2018-12-05] MEDS: INSULIN SLIDING SCALE (NOVOLOG) 1 VIAL SQ SCH ×4 (06:06→22:06)
[2018-12-05 06:44] LABS: HEMATOCRIT 30.4 % (35.4-49); HEMOGLOBIN 10.2 GM/dL (11.7-16.9); MCHC 33.5 g/dl (32.0-35.9); MEAN CELL VOLUME 104.3 fl (80-96); PLATELET COUNT 217 K/MM3 (134-434); RBC 2.91 M/mm3 (4.00-5.60); RDW 21.1 % (11.9-15.9); WHITE BLOOD COUNT 20.6 K/mm3 (4.0-10.0)
[2018-12-05] MEDS: SEVELAMER CARBONATE 800 MG TAB (FP) PO SCH ×3 (08:50→17:20)
--- NOTE | 2018-12-05 08:52 | PN ---
Progress Note, Physician Chief Complaint: feeling well No new complaints Awaits part 2 of stress MPI - Current Medication List Current Medications: Active Medications Acetaminophen (Tylenol -) 650 mg PO Q4H PRN PRN Reason: FEVER Aspirin (Asa -) 81 mg PO DAILY ON LICENSE OF [facility] Last Admin: 12/04/18 09:12 Dose: 81 mg Atorvastatin Calcium (Lipitor -) 10 mg PO HS ON LICENSE OF [facility] Last Admin: 12/04/18 21:37 Dose: 10 mg Cinacalcet (Sensipar -) 30 mg PO DAILY ON [facility] OF [facility] Last Admin: 12/04/18 09:14 Dose: 30 mg Clopidogrel Bisulfate (Plavix -) 75 mg PO DAILY ON LICENSE OF [facility] Last Admin: 12/04/18 09:12 Dose: 75 mg Heparin Sodium (Porcine) (Heparin -) 1,000 unit IVPUSH PRN PRN PRN Reason: Heparin Heparin Sodium (Porcine) (Heparin -) 5,000 unit IVPUSH PRN PRN PRN Reason: Heparin Last Admin: 12/03/18 17:40 Dose: 5,000 unit Heparin Sodium (Porcine) 25, (000 unit/ Sodium Chloride) 500 mls @ 20 mls/hr IV TITR ON LICENSE OF [facility]; Protocol Last Titration: 12/04/18 14:12 Dose: 1,000 unit/hr, 20 mls/hr Sodium Chloride (Normal Saline -) 250 mls @ 3,000 mls/hr IV PRN PRN PRN Reason: Hypotension during Dialysis Stop: 12/05/18 15:04 Insulin Aspart (Novolog Vial Sliding Scale -) 1 vial SQ ACHS ON LICENSE OF [facility]; Protocol Last Admin: 12/05/18 06:06 Dose: Not Given Methylprednisolone Sodium Succinate (Solu-Medrol -) 40 mg IVPUSH DAILY ON LICENSE OF [facility] Metoprolol Tartrate (Lopressor -) 25 mg PO BID ON [facility] OF [facility] Last Admin: 12/04/18 21:37 Dose: 25 mg Pantoprazole Sodium (Protonix -) 40 mg PO DAILY ON [facility] OF [facility] Last Admin: 12/04/18 12:21 Dose: 40 mg Sevelamer Carbonate (Renvela -) 800 mg PO TIDCM ON LICENSE OF [facility] Last Admin: 12/04/18 17:50 Dose: 800 mg Warfarin Sodium (Coumadin -) 5 mg PO DAILY@1800 ON [facility] OF [facility] Last Admin: 12/04/18 17:50 Dose: 5 mg - Objective Vital Signs: Vital Signs Temperature 98.0 F 12/05/18 06:00 Pulse Rate 69 12/05/18 06:00 Respiratory Rate 20 12/05/18 06:00 Blood Pressure 111/61 12/05/18 06:00 O2 Sat by Pulse Oximetry (%) 98 12/04/18 20:00 Constitutional: Yes: No Distress Cardiovascular: Yes: Regular Rate and Rhythm Respiratory: Yes: CTA Bilaterally Gastrointestinal: Yes: Soft (NT) Edema: No Neurological: Yes: Alert, Oriented ...Motor Strength: WNL Labs: CBC, BMP 12/05/18 06:00 12/04/18 12:35 INR, PTT INR 1.13 (0.83-1.09) H 12/04/18 12:35 Laboratory Tests 12/03/18 12/04/18 12/04/18 05:00 00:25 12:35 WBC 18.9 H Hgb 9.7 L Plt Count 250 PTT (Actin FS) 95.8 H Sodium 134 L Potassium 4.7 BUN 71 H Creatinine 10.4 H* Total Bilirubin 0.6 AST 28 ALT 42 Alkaline Phosphatase 99 12/05/18 12/05/18 06:00 06:00 WBC 20.6 H Hgb 10.2 L Plt Count 217 D PTT (Actin FS) 55.9 H Sodium Potassium BUN Creatinine Total Bilirubin AST ALT Alkaline Phosphatase - ....Imaging EKG: Image Reviewed Assessment/Plan IMP: ESRD on HD Fever, SIRS: RSV + Prior CVA, PAF on warfarin + TnI: Suspect demand ischemia secondary to infection REC: 1. Follow cultures, treat underlying infection; abx as per ICU team and ID 2. Echo showed normal LVEF, moderate to severe MR and PHTN. 3. To continue ASA, beta jl, statin, supplimental O2 4. INR 2-3 (PAF). INR subtherapeutic, start heparin gtts; resumed coumadin. 5. Await stress test result for further CV reccs
[2018-12-05] MEDS ORDERED: PT OWN MED DRAWER 7, Y5N ONE (08:57)
[2018-12-05] MEDS: METOPROLOL TARTRATE 25 MG TABLET (FP) PO SCH ×2 (09:09→22:06)
[2018-12-05] MEDS: ASPIRIN 81 MG CHEWABLE TABLETS PO SCH (09:09)
[2018-12-05] MEDS: CLOPIDOGREL BISULFATE 75 MG TABLET (FP) PO SCH (09:09)
[2018-12-05] MEDS: PANTOPRAZOLE 40 MG TABLET (FP) PO SCH (09:09)
[2018-12-05] MEDS: CINACALCET HCL 30 MG TAB (FP) PO SCH (09:10)
[2018-12-05] MEDS ORDERED: methylPREDNISolone NA SUCC 40 MG/1 ML VIAL IVPUSH SCH (10:00)
[2018-12-05] MEDS ORDERED: REGADENOSON 0.4 MG/5 ML PRE-FILLED SYRINGE IVPUSH ONE ×2 (10:37→11:15)
[2018-12-05] MEDS: HEPARIN - 25,000 UNIT in SODIUM CHLORIDE 495 ML IV SCH (11:54)
--- NOTE | 2018-12-05 12:24 | PN ---
Progress Note, Physician History of Present Illness: PULMONARY ALERT,NO DISTRESS ,OOB-CHAIR,LESS COUGH,-SOB - Current Medication List Current Medications: Active Medications Acetaminophen (Tylenol -) 650 mg PO Q4H PRN PRN Reason: FEVER Aspirin (Asa -) 81 mg PO DAILY [facility] Last Admin: 12/05/18 09:09 Dose: 81 mg Atorvastatin Calcium (Lipitor -) 10 mg PO HS [facility] Last Admin: 12/04/18 21:37 Dose: 10 mg Cinacalcet (Sensipar -) 30 mg PO DAILY [facility] Last Admin: 12/05/18 09:10 Dose: 30 mg Clopidogrel Bisulfate (Plavix -) 75 mg PO DAILY [facility] Last Admin: 12/05/18 09:09 Dose: 75 mg Heparin Sodium (Porcine) (Heparin -) 1,000 unit IVPUSH PRN PRN PRN Reason: Heparin Heparin Sodium (Porcine) (Heparin -) 5,000 unit IVPUSH PRN PRN PRN Reason: Heparin Last Admin: 12/03/18 17:40 Dose: 5,000 unit Heparin Sodium (Porcine) 25, (000 unit/ Sodium Chloride) 500 mls @ 20 mls/hr IV TITR [facility]; Protocol Last Titration: 12/04/18 14:12 Dose: 1,000 unit/hr, 20 mls/hr Sodium Chloride (Normal Saline -) 250 mls @ 3,000 mls/hr IV PRN PRN PRN Reason: Hypotension during Dialysis Stop: 12/05/18 15:04 Insulin Aspart (Novolog Vial Sliding Scale -) 1 vial SQ ACHS [facility]; Protocol Last Admin: 12/05/18 11:41 Dose: 2 units Methylprednisolone Sodium Succinate (Solu-Medrol -) 40 mg IVPUSH DAILY [facility] Last Admin: 12/05/18 09:10 Dose: 40 mg Metoprolol Tartrate (Lopressor -) 25 mg PO BID [facility] Last Admin: 12/05/18 09:09 Dose: Not Given Pantoprazole Sodium (Protonix -) 40 mg PO DAILY [facility] Last Admin: 12/05/18 09:09 Dose: 40 mg Sevelamer Carbonate (Renvela -) 800 mg PO TIDCM [facility] Last Admin: 12/05/18 11:37 Dose: 800 mg Warfarin Sodium (Coumadin -) 5 mg PO DAILY@1800 [facility] Last Admin: 12/04/18 17:50 Dose: 5 mg - Objective Vital Signs: Vital Signs Temperature 98.0 F 12/05/18 06:00 Pulse Rate 63 12/05/18 09:00 Respiratory Rate 18 12/05/18 10:00 Blood Pressure 106/54 L 12/05/18 09:00 O2 Sat by Pulse Oximetry (%) 96 12/05/18 10:00 Constitutional: Yes: Well Nourished, Calm Eyes: Yes: WNL HENT: Yes: WNL Neck: Yes: WNL Cardiovascular: Yes: Regular Rate and Rhythm, S1, S2 Respiratory: Yes: Rhonchi (FEW SCATTERED RHONHI) Gastrointestinal: Yes: Normal Bowel Sounds, Soft Extremities: Yes: WNL Edema: No Labs: CBC, BMP 12/05/18 06:00 12/04/18 12:35 INR, PTT INR 1.13 (0.83-1.09) H 12/04/18 12:35 Problem List - Problems (1) RSV (respiratory syncytial virus infection) Code(s): B97.4 - RESPIRATORY SYNCYTIAL VIRUS CAUSING DISEASES CLASSD ELSWHR (2) Diabetes Code(s): E11.9 - TYPE 2 DIABETES MELLITUS WITHOUT COMPLICATIONS (3) Elevated troponin Code(s): R74.8 - ABNORMAL LEVELS OF OTHER SERUM ENZYMES (4) Fever Code(s): R50.9 - FEVER, UNSPECIFIED (5) Hypoxia Code(s): R09.02 - HYPOXEMIA (6) NSTEMI (non-ST elevated myocardial infarction) Code(s): I21.4 - NON-ST ELEVATION (NSTEMI) MYOCARDIAL INFARCTION (7) Atrial fibrillation Code(s): I48.91 - UNSPECIFIED ATRIAL FIBRILLATION (8) End stage renal disease on dialysis Code(s): N18.6 - END STAGE RENAL DISEASE; Z99.2 - DEPENDENCE ON RENAL DIALYSIS Assessment/Plan ASSESSMENT AND PLAN: r/o Pneumonia +RSV Severe Sepsis resolved +Troponins likely Demand Ischemia ESRD on HD Paroxysmal Atrial Fibrillation BPH DM - HD per renal - rate control - ASA, plavix - beta jl, statin - continue anticoagulation to keep INR 2-3 - prednisone DR ARREOLA
[2018-12-05 16:55] LABS: INR 1.16 (0.83-1.09); PROTHROMBIN TIME (PATIENT) 13.7 SEC (9.7-13.0)
[2018-12-05] MEDS: WARFARIN NA 5 MG TABLET (UD) PO SCH (17:20)
[2018-12-05] MEDS: ATORVASTATIN CA 10 MG TABLET (FP) PO SCH (22:06)
--- NOTE | 2018-12-05 23:05 | PN ---
Progress Note, Physician History of Present Illness: No new complaints - Current Medication List Current Medications: Active Medications Acetaminophen (Tylenol -) 650 mg PO Q4H PRN PRN Reason: FEVER Aspirin (Asa -) 81 mg PO DAILY [facility] Last Admin: 12/05/18 09:09 Dose: 81 mg Atorvastatin Calcium (Lipitor -) 10 mg PO HS [facility] Last Admin: 12/05/18 22:06 Dose: 10 mg Cinacalcet (Sensipar -) 30 mg PO DAILY [facility] Last Admin: 12/05/18 09:10 Dose: 30 mg Clopidogrel Bisulfate (Plavix -) 75 mg PO DAILY [facility] Last Admin: 12/05/18 09:09 Dose: 75 mg Heparin Sodium (Porcine) (Heparin -) 1,000 unit IVPUSH PRN PRN PRN Reason: Heparin Heparin Sodium (Porcine) (Heparin -) 5,000 unit IVPUSH PRN PRN PRN Reason: Heparin Last Admin: 12/03/18 17:40 Dose: 5,000 unit Heparin Sodium (Porcine) 25, (000 unit/ Sodium Chloride) 500 mls @ 20 mls/hr IV TITR [facility]; Protocol Last Admin: 12/05/18 11:54 Dose: 1,000 unit/hr, 20 mls/hr Insulin Aspart (Novolog Vial Sliding Scale -) 1 vial SQ ACHS [facility]; Protocol Last Admin: 12/05/18 22:06 Dose: 8 units Metoprolol Tartrate (Lopressor -) 25 mg PO BID [facility] Last Admin: 12/05/18 22:06 Dose: 25 mg Pantoprazole Sodium (Protonix -) 40 mg PO DAILY [facility] Last Admin: 12/05/18 09:09 Dose: 40 mg Prednisone (Deltasone -) 30 mg PO DAILY [facility] Sevelamer Carbonate (Renvela -) 800 mg PO TIDCM [facility] Last Admin: 12/05/18 17:20 Dose: 800 mg Warfarin Sodium (Coumadin -) 5 mg PO DAILY@1800 [facility] Last Admin: 12/05/18 17:20 Dose: 5 mg - Objective Vital Signs: Vital Signs Temperature 98.0 F 12/05/18 14:05 Pulse Rate 72 12/05/18 17:48 Respiratory Rate 18 12/05/18 17:48 Blood Pressure 123/50 L 12/05/18 17:48 O2 Sat by Pulse Oximetry (%) 96 12/05/18 10:00 Neck: Yes: WNL, Supple Cardiovascular: Yes: WNL, Regular Rate and Rhythm Respiratory: Yes: WNL, Regular, CTA Bilaterally, Other (Rt ant chest wall perma cath) Gastrointestinal: Yes: WNL, Normal Bowel Sounds, Soft Labs: CBC, BMP 12/05/18 06:00 12/05/18 18:15 INR, PTT INR 1.16 (0.83-1.09) H 12/05/18 16:00 Problem List - Problems (1) Elevated troponin Assessment/Plan: Due to demand ischemia from sepsis? Cont plavix/asa/BB Echo noted Stress test pending Code(s): R74.8 - ABNORMAL LEVELS OF OTHER SERUM ENZYMES (2) Paroxysmal A-fib Assessment/Plan: Cont IV heparin and bridge w/ coumadin Daily PT/INR Code(s): I48.0 - PAROXYSMAL ATRIAL FIBRILLATION (3) Sepsis Assessment/Plan: Resolving Infected AVF Completing 6 weeks of IV vanco wc is given w/ dialysis Code(s): A41.9 - SEPSIS, UNSPECIFIED ORGANISM (4) Respiratory distress Code(s): R06.00 - DYSPNEA, UNSPECIFIED (5) Anemia Code(s): D64.9 - ANEMIA, UNSPECIFIED (6) Diabetes Code(s): E11.9 - TYPE 2 DIABETES MELLITUS WITHOUT COMPLICATIONS (7) HLD (hyperlipidemia) Code(s): E78.5 - HYPERLIPIDEMIA, UNSPECIFIED (8) HTN (hypertension) Code(s): I10 - ESSENTIAL (PRIMARY) HYPERTENSION (9) End stage renal disease on dialysis Code(s): N18.6 - END STAGE RENAL DISEASE; Z99.2 - DEPENDENCE ON RENAL DIALYSIS (10) BPH (benign prostatic hyperplasia) Code(s): N40.0 - BENIGN PROSTATIC HYPERPLASIA WITHOUT LOWER URINRY TRACT SYMP
[2018-12-06] MEDS: INSULIN SLIDING SCALE (NOVOLOG) 1 VIAL SQ SCH ×2 (06:09→12:09)
[2018-12-06 06:24] LABS: HEMATOCRIT 31.9 % (35.4-49); HEMOGLOBIN 10.7 GM/dL (11.7-16.9); MCH 35.4 pg (25.7-33.7); MCHC 33.6 g/dl (32.0-35.9); MEAN CELL VOLUME 105.2 fl (80-96); MEAN PLT VOLUME 6.7 fl (7.5-11.1); PLATELET COUNT 233 K/MM3 (134-434); RBC 3.03 M/mm3 (4.00-5.60); RDW 21.1 % (11.9-15.9); WHITE BLOOD COUNT 20.3 K/mm3 (4.0-10.0)
[2018-12-06] MEDS ORDERED: SODIUM CHLORIDE 250 ML IV PRN (07:10)
[2018-12-06 07:22] LABS: INR 1.24 (0.83-1.09); PROTHROMBIN TIME (PATIENT) 14.7 SEC (9.7-13.0)
--- NOTE | 2018-12-06 09:01 | PN ---
Progress Note, Physician Chief Complaint: Apical lateral ischemia EF 34% History of Present Illness: TELE:SR, VPCs - Current Medication List Current Medications: Active Medications Acetaminophen (Tylenol -) 650 mg PO Q4H PRN PRN Reason: FEVER Aspirin (Asa -) 81 mg PO DAILY [facility] Last Admin: 12/05/18 09:09 Dose: 81 mg Atorvastatin Calcium (Lipitor -) 10 mg PO HS [facility] Last Admin: 12/05/18 22:06 Dose: 10 mg Cinacalcet (Sensipar -) 30 mg PO DAILY [facility] Last Admin: 12/05/18 09:10 Dose: 30 mg Clopidogrel Bisulfate (Plavix -) 75 mg PO DAILY [facility] Last Admin: 12/05/18 09:09 Dose: 75 mg Heparin Sodium (Porcine) (Heparin -) 1,000 unit IVPUSH PRN PRN PRN Reason: Heparin Heparin Sodium (Porcine) (Heparin -) 5,000 unit IVPUSH PRN PRN PRN Reason: Heparin Last Admin: 12/03/18 17:40 Dose: 5,000 unit Heparin Sodium (Porcine) 25, (000 unit/ Sodium Chloride) 500 mls @ 20 mls/hr IV TITR [facility]; Protocol Last Admin: 12/05/18 11:54 Dose: 1,000 unit/hr, 20 mls/hr Sodium Chloride (Normal Saline -) 250 mls @ 3,000 mls/hr IV PRN PRN PRN Reason: Hypotension during Dialysis Stop: 12/07/18 07:10 Insulin Aspart (Novolog Vial Sliding Scale -) 1 vial SQ ACHS [facility]; Protocol Last Admin: 12/06/18 06:09 Dose: Not Given Metoprolol Tartrate (Lopressor -) 25 mg PO BID [facility] Last Admin: 12/05/18 22:06 Dose: 25 mg Pantoprazole Sodium (Protonix -) 40 mg PO DAILY [facility] Last Admin: 12/05/18 09:09 Dose: 40 mg Prednisone (Deltasone -) 30 mg PO DAILY [facility] Sevelamer Carbonate (Renvela -) 800 mg PO TIDCM [facility] Last Admin: 12/05/18 17:20 Dose: 800 mg Warfarin Sodium (Coumadin -) 5 mg PO DAILY@1800 [facility] Last Admin: 12/05/18 17:20 Dose: 5 mg - Objective Vital Signs: Vital Signs Temperature 97.9 F 12/06/18 06:00 Pulse Rate 74 12/06/18 06:00 Respiratory Rate 20 12/06/18 06:00 Blood Pressure 102/55 L 12/06/18 06:00 O2 Sat by Pulse Oximetry (%) 98 12/05/18 21:00 Constitutional: Yes: No Distress Cardiovascular: Yes: Regular Rate and Rhythm Respiratory: Yes: CTA Bilaterally (no rales or wheezing) Gastrointestinal: Yes: Soft Edema: No Neurological: Yes: Alert Labs: CBC, BMP 12/06/18 06:00 12/05/18 18:15 INR, PTT INR 1.24 (0.83-1.09) H 12/06/18 06:00 Laboratory Tests 12/04/18 12/06/18 12/06/18 12:35 06:00 06:00 WBC 20.3 H Hgb 10.7 L Plt Count 233 INR PTT (Actin FS) 62.2 H Sodium 134 L Potassium 4.7 AST 28 ALT 42 Alkaline Phosphatase 99 12/06/18 06:00 WBC Hgb Plt Count INR 1.24 H PTT (Actin FS) Sodium Potassium AST ALT Alkaline Phosphatase - ....Imaging EKG: Image Reviewed Assessment/Plan IMP: ESRD on HD Fever, SIRS: RSV + Prior CVA, PAF on warfarin + TnI: Suspect demand ischemia secondary to infection--> Stress with Apical lateral ischemia and severely reduced EF REC: 1. Follow cultures, treat underlying infection; abx as per ICU team and ID. Cx thus far negative. 2. Echo showed normal LVEF, moderate to severe MR and PHTN. 3. To continue ASA, beta jl, statin, supplimental O2 4. INR 2-3 (PAF). INR subtherapeutic, start heparin gtts 5. Given + TnI and markedly positive stress with low EF have recommended cath Risks/benefits/alternatives reviewed. D/W patient's primary peanut salter, Dr. Laboy. Patient will discuss with and if agrees will plan for tx to tertiary center.
[2018-12-06] MEDS: SEVELAMER CARBONATE 800 MG TAB (FP) PO SCH ×2 (09:44→12:10)
[2018-12-06] MEDS: PANTOPRAZOLE 40 MG TABLET (FP) PO SCH (09:45)
[2018-12-06] MEDS: ASPIRIN 81 MG CHEWABLE TABLETS PO SCH (09:45)
[2018-12-06] MEDS: CLOPIDOGREL BISULFATE 75 MG TABLET (FP) PO SCH (09:45)
[2018-12-06] MEDS ORDERED: predniSONE 10 MG TABLET (UD) PO SCH (10:00)
[2018-12-06] MEDS: HEPARIN - 25,000 UNIT in SODIUM CHLORIDE 495 ML IV SCH (12:09)
--- NOTE | 2018-12-06 13:41 | PN ---
Progress Note (short form) - Note Progress Note: PULMONARY Breathing continues to improve. Stress positive for reversible ischemia, cardiac cath planned. Vital Signs Period Temp Pulse Resp BP Sys/Martel Pulse Ox Last 24 Hr 97.7 F-98.7 F 55-87 16-20 102-129/46-79 98-98 Gen: NAD at rest Heart: RRR Lung: decreased breath sounds at the bases Abd: soft, nontender Ext: no edema CBC, BMP 12/06/18 06:00 12/05/18 18:15 Active Medications Acetaminophen (Tylenol -) 650 mg PO Q4H PRN PRN Reason: FEVER Aspirin (Asa -) 81 mg PO DAILY [facility] Last Admin: 12/06/18 09:45 Dose: 81 mg Atorvastatin Calcium (Lipitor -) 10 mg PO HS [facility] Last Admin: 12/05/18 22:06 Dose: 10 mg Cinacalcet (Sensipar -) 30 mg PO DAILY [facility] Last Admin: 12/05/18 09:10 Dose: 30 mg Clopidogrel Bisulfate (Plavix -) 75 mg PO DAILY [facility] Last Admin: 12/06/18 09:45 Dose: 75 mg Heparin Sodium (Porcine) (Heparin -) 1,000 unit IVPUSH PRN PRN PRN Reason: Heparin Heparin Sodium (Porcine) (Heparin -) 5,000 unit IVPUSH PRN PRN PRN Reason: Heparin Last Admin: 12/03/18 17:40 Dose: 5,000 unit Heparin Sodium (Porcine) 25, (000 unit/ Sodium Chloride) 500 mls @ 20 mls/hr IV TITR [facility]; Protocol Last Admin: 12/06/18 12:09 Dose: 1,000 unit/hr, 20 mls/hr Sodium Chloride (Normal Saline -) 250 mls @ 3,000 mls/hr IV PRN PRN PRN Reason: Hypotension during Dialysis Stop: 12/07/18 07:10 Insulin Aspart (Novolog Vial Sliding Scale -) 1 vial SQ ACHS [facility]; Protocol Last Admin: 12/06/18 12:09 Dose: 4 units Metoprolol Tartrate (Lopressor -) 25 mg PO BID [facility] Last Admin: 12/05/18 22:06 Dose: 25 mg Pantoprazole Sodium (Protonix -) 40 mg PO DAILY [facility] Last Admin: 12/06/18 09:45 Dose: 40 mg Prednisone (Deltasone -) 30 mg PO DAILY [facility] Last Admin: 12/06/18 09:45 Dose: 30 mg Sevelamer Carbonate (Renvela -) 800 mg PO TIDCM [facility] Last Admin: 12/06/18 12:10 Dose: 800 mg A/P r/o Pneumonia +RSV Severe Sepsis +Troponins likely Demand Ischemia ESRD on HD Paroxysmal Atrial Fibrillation BPH DM - for cardiac cath - antibiotics per ID - completed empiric tamiflu - taper off prednisone - HD per renal - rate control - ASA, plavix - beta jl, statin - continue anticoagulation to keep INR 2-3
[2018-12-06 14:57] VITALS: TEMP 97.8
[2018-12-06] MEDS ORDERED: PT OWN MED DRAWER 7, Y5N ONE ×2 (15:20→16:39)
[2018-12-06 15:27] VITALS: BP 125/78; PULSE 77
[2018-12-06] MEDS: METOPROLOL TARTRATE 25 MG TABLET (FP) PO SCH (15:34)
[2018-12-06] MEDS: CINACALCET HCL 30 MG TAB (FP) PO SCH (15:34)
[2018-12-07] MEDS ORDERED: predniSONE 20 MG TABLET (UD) PO SCH (10:00)
== END 2018-12-06 17:05 | disposition short-term general hospital (02) | DRG 871 ==
LOC: JER 14:23 → JERBED 17:28 → JICU 23:55 → J2W 11-29 14:39 → J4S 11-30 20:32
PROVIDERS: ADMIT Internal Medicine; ATTEND Internal Medicine
PROC: 5A1D70Z Performance of Urinary Filtration, Intermittent, Less than 6 Hours Per Day (ICD-10-PCS; principal; 2018-11-28)
PROC: 5A1D70Z Performance of Urinary Filtration, Intermittent, Less than 6 Hours Per Day (ICD-10-PCS; 2018-11-29)
PROC: 5A1D70Z Performance of Urinary Filtration, Intermittent, Less than 6 Hours Per Day (ICD-10-PCS; 2018-12-01)
PROC: 5A1D70Z Performance of Urinary Filtration, Intermittent, Less than 6 Hours Per Day (ICD-10-PCS; 2018-12-04)
PROC: 5A1D70Z Performance of Urinary Filtration, Intermittent, Less than 6 Hours Per Day (ICD-10-PCS; 2018-12-06)
DX: A41.89 Other specified sepsis (principal); N18.6 End stage renal disease; J12.1 Respiratory syncytial virus pneumonia; I24.8 Other forms of acute ischemic heart disease; I12.0 Hypertensive chronic kidney disease with stage 5 chronic kidney disease or end stage renal disease; E87.3 Alkalosis; E11.22 Type 2 diabetes mellitus with diabetic chronic kidney disease; Z99.2 Dependence on renal dialysis; I95.9 Hypotension, unspecified; E78.00 Pure hypercholesterolemia, unspecified; I48.0 Paroxysmal atrial fibrillation; R13.10 Dysphagia, unspecified; R09.02 Hypoxemia; I34.0 Nonrheumatic mitral (valve) insufficiency; D72.829 Elevated white blood cell count, unspecified; I27.20 Pulmonary hypertension, unspecified; I44.0 Atrioventricular block, first degree; N25.0 Renal osteodystrophy; D64.9 Anemia, unspecified; R74.8 Abnormal levels of other serum enzymes; T82.7XXD Infection and inflammatory reaction due to other cardiac and vascular devices, implants and grafts, subsequent encounter; N40.0 Benign prostatic hyperplasia without lower urinary tract symptoms; Z86.73 Personal history of transient ischemic attack (TIA), and cerebral infarction without residual deficits; Z79.01 Long term (current) use of anticoagulants
CPT/HCPCS: 36415; 71045-TC-FY; 78452-TC; 80048; 80053; 81003; 81015; 82550; 82553; 82803; 82947; 82962; 83605; 83735; 83880; 84100; 84484; 85025; 85027; 85610; 85730; 86704; 86706; 86708; 86803; 87040; 87070; 87205; 87340; 87804; 87807; 93005; 93010; 93017; 93306-TC; 99283-25; A9502; G0480; J0131; J0885; J1644; J2785

== ENCOUNTER 2019-02-01 09:42 | Day surgery (SDC) | payer OTHER ==
[2019-01-31 11:43] VITALS: BMI 31.6
[2019-02-01 10:09] VITALS: BP 107/59; PULSE 108; TEMP 97.7
[2019-02-01 10:28] LABS: POTASSIUM 4.4 mmol/L (3.5-5.1)
[2019-02-01 10:46] LABS: INR 1.79 (0.83-1.09); PROTHROMBIN TIME (PATIENT) 21.3 SEC (9.7-13.0)
--- NOTE | 2019-02-01 12:32 | PN ---
Progress Note (short form) - Note Progress Note: Called by ASU to evaluate pt scheduled to have AVG with Dr. Wright today. Mr. Morocho is a 73M who had a STEMI 2 months ago, and 2 subsequent BRAULIO placed, most recently on 01/18/19. Although he was last dialyzed yesterday, he presents today SOB, and is clinically volume overloaded as evidenced by his 2 + pitting edema in his legs and his coarse lung sounds bilaterally. He is in A.fib with HR as high as 115 today despite having taken his metoprolol this morning. I spoke to Dr. Laboy, his chip unloader. We agreed that he was not a candidate for elective surgery today, and that his surgery should be rescheduled for at least 6 weeks after his last stent placement with better HR control. He is going to be dialyzed today and will follow up with his chip unloader on Monday. I have instructed him to go the ER if his SOB worsens or if he has angina.
== END 2019-02-01 12:05 | disposition home or self-care (01) ==
LOC: JASU-SURG 09:42
PROVIDERS: ATTEND Surgery
DX: Z53.8 Procedure and treatment not carried out for other reasons (principal)
CPT/HCPCS: 36415; 82947; 84132; 85610; 86850; 86900; 86901; 86922

== ENCOUNTER 2019-02-22 10:55 | Day surgery (SDC) | payer OTHER ==
[2019-02-20 14:40] VITALS: BMI 30.8
[2019-02-22 11:45] LABS: INR 2.19 (0.83-1.09); PROTHROMBIN TIME (PATIENT) 26.1 SEC (9.7-13.0)
[2019-02-22 11:58] LABS: POTASSIUM 4.2 mmol/L (3.5-5.1)
[2019-02-22 13:12] VITALS: BP 103/57; PULSE 75; TEMP 97.5
[2019-02-22] MEDS ORDERED: PAPAVERINE HCL 30 MG/1 ML 10 ML VIAL NR ONE (13:19)
[2019-02-22] MEDS ORDERED: HEPARIN NA (PORCINE) 5,000 UNITS/ML 1ML VIAL ONE (13:19)
[2019-02-22] MEDS ORDERED: LIDOCAINE HCL 1%, 10 MG/ML (20ML VIAL) ONE (13:20)
== END 2019-02-22 15:50 | disposition home or self-care (01) ==
LOC: JASU-SURG 10:55
PROVIDERS: ATTEND Surgery
DX: Z53.8 Procedure and treatment not carried out for other reasons (principal)
CPT/HCPCS: 36415; 82947; 84132; 85610; J1644

== ENCOUNTER 2019-03-01 10:30 | Day surgery (SDC) | payer OTHER ==
[2019-02-28 17:19] VITALS: BMI 30.8
[2019-03-01 11:32] LABS: INR 1.31 (0.83-1.09); PROTHROMBIN TIME (PATIENT) 15.5 SEC (9.7-13.0)
[2019-03-01] MEDS ORDERED: LIDOCAINE HCL 1%, 10 MG/ML (20ML VIAL) ONE (13:29)
--- NOTE | 2019-03-01 13:51 | HP ---
History & Physical Update - Assessment Currently as noted:: Malfunction left arm AV graft - Plan Currently as noted:: Revision of AV graft left arm
[2019-03-01] MEDS ORDERED: PROPOFOL 20 ML ONE ×3 (13:57)
[2019-03-01] MEDS ORDERED: fentaNYL CITRATE 250 MCG/5 ML VIAL ONE (13:57)
[2019-03-01] MEDS ORDERED: MIDAZOLAM HCL 2 MG/2 ML SINGLE DOSE VIAL ONE ×2 (13:57)
[2019-03-01] MEDS ORDERED: ceFAZolin SODIUM 1 GM VIAL IVPB ONE (14:00)
[2019-03-01] MEDS ORDERED: LIDOCAINE HCL 1%, 10 MG/ML (20ML VIAL) NR ONE (14:10)
[2019-03-01] MEDS ORDERED: ceFAZolin SODIUM 1 GM VIAL ONE (14:17)
[2019-03-01] MEDS ORDERED: KETOROLAC TROMETHAMINE 30 MG/1 ML VIAL ONE (14:17)
[2019-03-01] MEDS ORDERED: DEXAMETHASONE SOD PHOSPHATE 4 MG/1 ML VIAL ONE (14:17)
[2019-03-01] MEDS ORDERED: POVIDONE-IODINE OINTMENT 10% - 28.4 GM TUBE ONE (15:14)
[2019-03-01] MEDS ORDERED: THROMBIN (BOVINE) 5,000 UNIT VIAL TP ONE ×2 (15:18→15:20)
[2019-03-01] MEDS ORDERED: GELATIN, ABSORBABLE 12-7MM EACH SPONGE TP ONE (15:20)
[2019-03-01] MEDS ORDERED: POVIDONE-IODINE OINTMENT 10% - 28.4 GM TUBE TP ONE (15:25)
--- NOTE | 2019-03-01 15:35 | OP ---
Operative Note - Note: Operative Date: 03/01/19 Pre-Operative Diagnosis: ESRD on HD Operation: Placement AV graft left arm Findings: Patent arterial and venous segments. Implants: 7 mm Propaten graft Post-Operative Diagnosis: Same as Pre-op Surgeon: Johan Wright Ict Business Analyst: Marc Oquendo Anesthesiologist/INSIDE TECHNICAL SALES REPRESENTATIVE: Jacoby Alcantara Anesthesia: Fractional Estimated Blood Loss (mls): 25
[2019-03-01] MEDS ORDERED: ONDANSETRON 4 MG/2 ML VIAL IVPUSH PRN (15:46)
[2019-03-01] MEDS ORDERED: oxyCODONE HCL 5 MG TABLET PO PRN (15:46)
--- NOTE | 2019-03-01 15:48 | SURG ---
Surgery Audio Visual Secretary Note Audio Visual Secretary: Marc Oquendo PA-C (Suzy) Date of Service: 03/01/19 Diagnosis: ESRD on HD Procedure: Placement AV graft left arm I was present for the entirety of the operative procedure. For further detail, please refer to operative report. Visit type - Case Type Case Type: Scheduled - Emergency Emergency Visit: No - New patient This patient is new to me today: Yes Date on this admission: 03/01/19 - Critical Care Critical Care patient: No
[2019-03-01] MEDS ORDERED: SODIUM CHLORIDE 1,000 ML IV SCH (16:00)
[2019-03-01 17:37] VITALS: TEMP 97.9
[2019-03-01 18:22] VITALS: BP 110/60; PULSE 88
--- NOTE | 2019-03-02 09:10 | OP ---
DATE OF OPERATION: 03/01/2019 SURGEON: Johan Roche MD BOOM BOSS: ALEXY Oquendo PROCEDURE: Placement arteriovenous graft, left arm. PREOPERATIVE DIAGNOSIS: Renal failure. POSTOPERATIVE DIAGNOSIS: Renal failure. ANESTHESIA: Fractional. ANESTHESIOLOGIST: Jacoby Alcantara MD OPERATIVE FINDINGS: This patient with end-stage renal disease on chronic hemodialysis had a left arm AV graft, which became infected and was revised at another hospital. Since that time, it has been unable to be used. The arterial and venous anastomoses are patent and the intervening portion was replaced. OPERATIVE PROCEDURE: Following routine patient identification with side and site verification, intravenous sedation was established. The left arm and axilla were prepped with ChloraPrep. Xylocaine 1% was infiltrated in the axilla and the old scar, and the incision was made through the scar.. Subcutaneous tissues were divided using cautery for hemostasis. The proximal end of the graft was identified and was mobilized form the surrounding tissues up towards the venous anastomosis. Graft was encircled with vessel loops. A 2nd incision was made on the distal aspect of the upper arm over the distal portion of the graft. It was exposed and encircled with vessel loops. The venous end was then clamped with vascular clamps and transected. A No. 4 Jyoti catheter was then passed through the venous limb into the axillary vein and withdrawn. There was no evidence of severe stenosis and good venous back-bleeding. The graft was filled with heparin solution, was occluded with a vascular clamp. The arterial end was then doubly clamped with vascular clamps and transected. The portion of the old graft being left in the arm was ligated with 2-0 silk. A curved metal tunneler was then passed between the 2 incisions lateral to the old graft and a 4-7-mm Propaten graft was passed through the tunneler. The end of the graft was trimmed at the smaller end and was anastomosed end-to-end to the old AV graft using running suture of 6-0 Prolene. Following completion at the suture line, the proximal clamp was removed. There was good arterial inflow, and the graft was filled with heparin solution and was reoccluded. The graft was positioned in its tunnel with care not to have undue tension. The venous end was then trimmed for length and anastomosed end-to-end to the old graft segment. This was also done with 6-0 Prolene. Prior to completion of the suture line, both ends were allowed to back-bleed and were flushed with heparin solution. Suture line was completed, and clamps were removed. There was good flow through the graft with a palpable pulse. The old graft in the arm was also ligated at the venous end with 2-0 silk. Surgicel and Gelfoam and thrombin were applied to the suture lines until bleeding stopped. The wounds were then closed with interrupted suture of 3-0 Vicryl and subcutaneous tissues and skin hans. Sterile dressings were applied, and the patient was taken to the recovery room in stable condition. JOHAN ROCHE M.D. [id number]
== END 2019-03-01 16:10 | disposition home or self-care (01) ==
LOC: JASU-SURG 10:30
PROVIDERS: ATTEND Surgery
PROC: 03WY3JZ Revision of Synthetic Substitute in Upper Artery, Percutaneous Approach (ICD-10-PCS; principal; 2019-03-01 13:00)
DX: I12.0 Hypertensive chronic kidney disease with stage 5 chronic kidney disease or end stage renal disease (principal); E11.22 Type 2 diabetes mellitus with diabetic chronic kidney disease; N18.6 End stage renal disease; Z99.2 Dependence on renal dialysis; Z79.84 Long term (current) use of oral hypoglycemic drugs
CPT/HCPCS: 36415; 82962; 84132; 85610; 94760

== ENCOUNTER 2020-08-13 14:49 | Inpatient (IN) | payer OTHER ==
--- NOTE | 2020-08-13 16:07 | PDOC ---
History of Present Illness - General History Source: Patient - History of Present Illness Initial Comments: 08/13/20 16:07 75M w/hx HTN, HLD, CAD s/p cardiac stenting, afib on warfarin, CKD on HD (T//Mon) presents from HD with worsening pain, swelling to site of L AV graft. He reports that Monday shortly after HD, he returned home and noted pain and swelling around the graft site. He reports that today he had his full round of HD, and afterwards was instructed by the HD team to seek ED evaluation. He reports worsening pain, swelling since the HD finished. He reports 05/29 localized pain in the L bicep, he denies any numbness, paresthesias, or pain distal to the site. Vascular surgeon: Dr. Wright <Juan Cheung - Last Filed: 08/13/20 18:20> <Markell Bergman - Last Filed: 08/13/20 20:23> - General Chief Complaint: Dialysis Shunt Problem Stated Complaint: LT ARM SWOLLEN Time Seen by Provider: 08/13/20 15:34 Past History - Medical History Anemia: No Asthma: No Cancer: No Cardiac Disorders: Yes (TIA;RECURRENT A-FIB) CVA: No COPD: No CHF: No DVT: No Dementia: No Diabetes: Yes Dialysis: Yes (lt arm fistula, hd ,,thr,sat) GI Disorders: Yes (DYSPHAGIA,H/O ESOPHAGEAL FOOD DISIMPACTION) Disorders: No (BPH) HTN: Yes Hypercholesterolemia: Yes Liver Disease: No Seizures: No Thyroid Disease: No - Surgical History Abdominal Surgery: No Appendectomy: No Cardiac Surgery: Yes (stent 01/18/19x1; 12/2018x- s/p small OK -2 STENTS) Cholecystectomy: No Lung Surgery: No Neurologic Surgery: No Orthopedic Surgery: No - Psycho-Social/Smoking History Smoking Status: Yes Smoking History: Never smoked Have you smoked in the past 12 months: No Number of Cigarettes Smoked Daily: 0 If you are a former smoker, when did you quit?: Over 1 years ago <Juan Cheung - Last Filed: 08/13/20 18:20> <Markell Bergman - Last Filed: 08/13/20 20:23> - Medical History Allergies/Adverse Reactions: Allergies Allergy/AdvReac Type Severity Reaction Status Date / Time No Known Drug Allergies Allergy Unknown Verified 08/13/20 15:07 Home Medications: Ambulatory Orders Pantoprazole Sodium [Protonix -] 40 mg PO DAILY #30 tablet.ec 02/15/16 Glipizide [Glipizide ER] 10 mg PO BID 07/14/16 Metoprolol Tartrate [Lopressor -] 50 mg PO BID 07/14/16 Warfarin Na [Coumadin -] 5 mg PO DAILY@1800 11/27/18 Aspirin [ASA -] 81 mg PO DAILY 01/31/19 Atorvastatin Ca [Lipitor] 10 mg PO HS 02/01/19 Acetaminophen W/ Codeine #3 [Tylenol # 3 -] 1 tab PO Q6H PRN 5 Days #15 tablet MDD 4 03/01/19 Review of Systems - Review of Systems Able to Perform ROS?: Yes Comments:: 08/13/20 18:29 GENERAL/CONSTITUTIONAL: No fever or chills. No weakness. HEAD, EYES, EARS, NOSE AND THROAT: No change in vision. No ear pain or discharge. No sore throat. CARDIOVASCULAR: No chest pain or shortness of breath RESPIRATORY: No cough, wheezing, or hemoptysis. GASTROINTESTINAL: No nausea, vomiting, diarrhea or constipation. GENITOURINARY: No dysuria, frequency, or change in urination. MUSCULOSKELETAL: LUE swelling, pain. No other joint or muscle swelling or pain. No neck or back pain. SKIN: No rash NEUROLOGIC: No headache, vertigo, loss of consciousness, or change in strength/sensation. ENDOCRINE: No increased thirst. No abnormal weight change HEMATOLOGIC/LYMPHATIC: No anemia, easy bleeding, or history of blood clots. ALLERGIC/IMMUNOLOGIC: No hives or skin allergy. <Juan Cheung - Last Filed: 08/13/20 18:20> *Physical Exam - Vital Signs Last Vital Signs Temp Pulse Resp BP Pulse Ox 97.8 F 78 18 119/41 L 100 08/13/20 15:05 08/13/20 15:05 08/13/20 15:05 08/13/20 15:05 08/13/20 15:05 - Physical Exam 08/13/20 18:30 GENERAL: Awake, alert, and fully oriented, in no acute distress HEAD: No signs of trauma, normocephalic, atraumatic EYES: PERRLA, EOMI, sclera anicteric, conjunctiva clear ENT: Auricles normal inspection, hearing grossly normal, nares patent, oropharynx clear without exudates. Moist mucosa NECK: Normal ROM, supple, no lymphadenopathy, JVD, or masses LUNGS: No distress, speaks full sentences, clear to auscultation bilaterally HEART: Regular rate and rhythm, normal S1 and S2, no murmurs, rubs or gallops, peripheral pulses normal and equal bilaterally. ABDOMEN: Soft, nontender, normoactive bowel sounds. No guarding, no rebound. No masses EXTREMITIES : LUE well circumscribed, firm region around L bicep at AVF site. Mild tenderness to palpation. 2+ bilateral radial pulses, normal sensation to soft touch distal to siite. Otherwise Normal inspection, Normal range of motion, no edema. No clubbing or cyanosis NEUROLOGICAL: Cranial nerves II through XII grossly intact. Normal speech, normal gait, no focal sensorimotor deficits SKIN: Warm, Dry, normal turgor, no rashes or lesions noted <Juan Cheung - Last Filed: 08/13/20 18:20> - Vital Signs Last Vital Signs Temp Pulse Resp BP Pulse Ox 97.8 F 78 18 119/41 L 100 08/13/20 15:05 08/13/20 15:05 08/13/20 15:05 08/13/20 15:05 08/13/20 15:05 <Markell Bergman - Last Filed: 08/13/20 20:23> ED Treatment Course - LABORATORY CBC & Chemistry Diagram: 08/13/20 16:35 08/13/20 16:35 <Juan Cheung - Last Filed: 08/13/20 18:20> - LABORATORY CBC & Chemistry Diagram: 08/13/20 16:35 08/13/20 16:35 - ADDITIONAL ORDERS Additional order review: Laboratory Results 08/13/20 08/13/20 16:35 16:35 PT with INR 48.20 H INR 4.03 H* PTT (Actin FS) 47.5 H Sodium 137 Potassium 4.3 Chloride 100 Carbon Dioxide 32 Anion Gap 5 L BUN 25.2 H Creatinine 5.5 H Est GFR (CKD-EPI)AfAm 10.82 Est GFR (CKD-EPI)NonAf 9.33 Random Glucose 148 H Calcium 8.3 L Total Bilirubin 0.9 AST 28 ALT 12 L Alkaline Phosphatase 150 H Total Protein 6.7 Albumin 3.2 L 08/13/20 16:35 RBC 2.65 L MCV 106.2 H MCHC 33.6 RDW 21.3 H MPV 8.2 D Neutrophils % 74.5 Lymphocytes % 11.7 D Monocytes % 12.6 H D Eosinophils % 0.7 D Basophils % 0.5 D - RADIOLOGY Radiology Studies Ordered: Category Date Time Status PORTCXR [CHEST X-RAY PORTABLE*] [RAD] Stat Radiology 08/13/20 20:04 Ordered - Medications Given in the ED: ED Medications Discontinued Medications Generic Name Dose Route Start Last Admin Trade Name Freq PRN Reason Stop Dose Admin Oxycodone/Acetaminophen 1 combo 08/13/20 18:01 08/13/20 18:06 Percocet 5/325 - PO 08/13/20 18:02 1 combo ONCE ONE Administration <Markell Bergman - Last Filed: 08/13/20 20:23> Medical Decision Making - Medical Decision Making 08/13/20 18:31 75M w/hx afib on warfarin, CKD on T/Th/Sat HD (completed today), IDDM, HTN, HLD p/w worsening pain, swelling at site of L AV graft. Ddx hematoma, AVF pseudoaneurysm. Nec fasc also possible given severe pain with minimal tenderness, site of frequent cannulation w/hx DM. Plan: CBC CMP PT/INR, APTT US LUE CT LUE w/o contrast Dispo: Pending imaging --- Case discussed with Dr. Wright. Plan for US to eval AVF patency, if patient remains neurovascularly intact can wrap site, follow up with outpatient vascular surgery. --- US - AVF patent, no hematoma visualized. Plan for CT to eval for nec fasc. <Juan Cheung - Last Filed: 08/13/20 18:20> Discharge <Juan Cheung - Last Filed: 08/13/20 18:20> - Discharge Information Problems reviewed: Yes - Admission Yes <Markell Bergman - Last Filed: 08/13/20 20:23> - Discharge Information Clinical Impression/Diagnosis: Left arm swelling, Elevated INR Condition: Good
[2020-08-13 16:59] LABS: BASO % 0.5 % (0-2.0); EOS % 0.7 % (0-4.5); HEMATOCRIT 28.1 % (35.4-49); HEMOGLOBIN 9.5 GM/dL (11.7-16.9); LYMPH % 11.7 % (8-40); MCH 35.7 pg (25.7-33.7); MCHC 33.6 g/dl (32.0-35.9); MEAN CELL VOLUME 106.2 fl (80-96); MEAN PLT VOLUME 8.2 fl (7.5-11.1); MONO % 12.6 % (3.8-10.2); NEUT % 74.5 % (42.8-82.8); PLATELET COUNT 132 K/MM3 (134-434); RBC 2.65 M/mm3 (4.00-5.60); RDW 21.3 % (11.9-15.9); WHITE BLOOD COUNT 9.1 K/mm3 (4.0-10.0)
[2020-08-13 17:07] LABS: PROTHROMBIN TIME (PATIENT) 48.2 SEC (9.7-13.0)
[2020-08-13 17:09] LABS: ACTIVATED PTT 47.5 SECONDS (25.2-36.5)
--- NOTE | 2020-08-13 17:17 | PDOC ---
Documentation entered by Gerardo Nunez SCRIBE, acting as scribe for Dre Enrique MD. Dre Enrique MD: This documentation has been prepared by the scribe, Gerardo Nunez SCRIBE, under my direction and personally reviewed by me in its entirety. I confirm that the documentation accurately reflects all work, treatment, procedures, and medical decision making performed by me. Attending Attestation - Resident Resident Name: Juan Cheung - ED Attending Attestation I have performed the following: I have examined & evaluated the patient, The case was reviewed & discussed with the resident, I agree w/resident's findings & plan, Exceptions are as noted - HPI HPI: 08/13/20 16:44 The patient is a 75 year old male with a significant past medical history of ESRD (on HD), CAD s/p cardiac stenting, A-Fib on coumadin, TIA, dysphagia, HTN, and HLD who presents to the emergency department, from HD, for evaluation of worsening pain and swelling at his left AV fistula that began two days ago after dialysis. The patient denies chest/abdominal/back pain, cough, and shortness of breath. Denies fever, chills, nausea, vomiting, and/or any GI symptoms. Denies any symptoms. Denies any other symptoms. No recent trauma Allergies: NKDA - Physicial Exam PE: 08/13/20 15:54 GENERAL: The patient is awake, alert, and fully oriented, Nontoxic - in no acute distress. Extremities: Diffuse swelling, induration without any erythema noted in the right bicep, unable to palpate his AV graft. Distal lower extremity intact neurovascularly without significant swelling. - Medical Decision Making 08/13/20 16:00 75y F hx of htn, hl, cad sp stents, dm, esrd (T,Th,Sa, last dialysis today) presents with increased pain/swelling to the arm of dialysis. Pt had dialysis today and was referred to the ER for evaluation of arm swelling. Since Monday evening the patient noticed some arm swelling after dialysis has gradually gotten worse. The patient did get dialysis today and notes that the swelling seemed to gotten much worse since dialysis. The patient notes that it is painful when he flexes his bicep, he denies any focal numbness, tingling, weakness, fever, chills. Patient has not had this happen in the past. vascular:Dr. Garcia 08/13/20 18:00 pts US reviewed, flow patent no signs of collection will obtain CT of RUE to eval for possible nec fasc/infection will place compression dressing labs rewviewed - INR pending 08/13/20 19:00 signed out to evening team to fu with INR and CT and disposition patient. Discharge - Discharge Information Problems reviewed: Yes Clinical Impression/Diagnosis: Left arm swelling, Elevated INR Condition: Good - Follow up/Referral - Patient Discharge Instructions - Post Discharge Activity
[2020-08-13 17:33] LABS: ALBUMIN 3.2 g/dl (3.4-5.0); BILIRUBIN,TOTAL 0.9 mg/dL (0.2-1); BLOOD UREA NITROGEN 25.2 mg/dL (7-18); CALCIUM 8.3 mg/dL (8.5-10.1); CREATININE 5.5 mg/dL (0.55-1.3); POTASSIUM 4.3 mmol/L (3.5-5.1); TOT PROT 6.7 g/dl (6.4-8.2)
[2020-08-13 17:53] LABS: ANISOCYTOSIS 2+; MACROCYTOSIS 1+; PLATELET ESTIMATE DECREASED
[2020-08-13 18:53] LABS: INR 4.03 (0.83-1.09)
--- NOTE | 2020-08-13 19:03 | PDOC ---
*Physical Exam - Vital Signs Last Vital Signs Temp Pulse Resp BP Pulse Ox 97.8 F 78 18 119/41 L 100 08/13/20 15:05 08/13/20 15:05 08/13/20 15:05 08/13/20 15:05 08/13/20 15:05 - Physical Exam 08/13/20 19:03 Sign out was given by day team. 08/13/20 19:36 Talked to patient. Wrapped the left arm with Ramesh wrap. CT upper extremity show: Concentric subcutaneous edema and a small amount of fluid accumulation is noted along the length of the left humerus, elbow and proximal forearm. The middle third of the biceps brachii muscle appears to be mildly prominent which could be on the basis of edema. No discrete hematoma is visualized. An AV graft is seen in place. A left axillary venous stent is noted. The visualized osseous structures demonstrate no definite CT evidence of acute pathology. A small calcification is noted adjacent to the greater tuberosity of the humeral head suggestive of calcific supraspinatus tendinitis. Impression: Concentric subcutaneous edema is noted along the length of the vis ualized left upper arm. There is also small amount of subcutaneous fluid. No discrete abscess is seen. There is possible mild prominence of the biceps brachii muscle which could be on the basis of edema. No discrete hematoma is visualized. A AV graft is seen in place. Incidental note is made of calcific supraspinatus tendinitis. ED Treatment Course - LABORATORY CBC & Chemistry Diagram: 08/15/20 08:15 08/15/20 08:15 - ADDITIONAL ORDERS Additional order review: Laboratory Results 08/13/20 08/13/20 16:35 16:35 PT with INR 48.20 H INR 4.03 H* PTT (Actin FS) 47.5 H Sodium 137 Potassium 4.3 Chloride 100 Carbon Dioxide 32 Anion Gap 5 L BUN 25.2 H Creatinine 5.5 H Est GFR (CKD-EPI)AfAm 10.82 Est GFR (CKD-EPI)NonAf 9.33 Random Glucose 148 H Calcium 8.3 L Total Bilirubin 0.9 AST 28 ALT 12 L Alkaline Phosphatase 150 H Total Protein 6.7 Albumin 3.2 L 08/13/20 16:35 RBC 2.65 L MCV 106.2 H MCHC 33.6 RDW 21.3 H MPV 8.2 D Neutrophils % 74.5 Lymphocytes % 11.7 D Monocytes % 12.6 H D Eosinophils % 0.7 D Basophils % 0.5 D - Medications Given in the ED: ED Medications Discontinued Medications Generic Name Dose Route Start Last Admin Trade Name Freq PRN Reason Stop Dose Admin Oxycodone/Acetaminophen 1 combo 08/13/20 18:01 08/13/20 18:06 Percocet 5/325 - PO 08/13/20 18:02 1 combo ONCE ONE Administration Discharge - Discharge Information Problems reviewed: Yes Clinical Impression/Diagnosis: Left arm swelling, Elevated INR Condition: Good Disposition: HOME - Follow up/Referral - Patient Discharge Instructions - Post Discharge Activity
[2020-08-13] MEDS ORDERED: PHYTONADIONE 10 MG/1 ML AMP SQ ONE (21:01)
--- NOTE | 2020-08-13 21:10 | HP ---
CHIEF COMPLAINT: left arm swelling and pain PCP: Vascular: Dr. Wright Post Secondary Professional : Dr. Renita Christianson HISTORY OF PRESENT ILLNESS: 75 year old male with a past medical history of coronary artery disease with cardiac stents, hypertension, hyperlipidemia, atrial fibrillation, on warfarin, CKD on hemodialysis () who presents from hemodialysis today with worsening pain and swelling to site of Left AV graft. Patient stated that Monday shortly after HD, he returned home and noted pain and swelling around the graft site. He reports that today he had his full round of HD, and afterwards he was instructed by the HD team to go to the ED for evaluation. He reported worsening pain, swelling since the HD finished. He denied numbness, paresthesias, or pain distal to the site. ER course noted for 1. INR 4.03, denies bleeding, no hemoptysis or hematuria 2. Left upper extremity swelling and pain , received oxycodone with relief . Workup woth CT scan of MONI demonstrated : CT scan of left upper extremity 08/13/2020 Concentric subcutaneous edema and a small amount of fluid accumulation is noted along the length of the left humerus, elbow and proximal forearm. The middle third of the biceps brachii muscle appears to be mildly prominent which could be on the basis of edema. No discrete hematoma is visualized. An AV graft is seen in place. A left axillary venous stent is noted. The visualized osseous structures demonstrate no definite CT evidence of acute pathology. A small calcification is noted adjacent to the greater tuberosity of the humeral head suggestive of calcific supraspinatus tendinitis. Impression: Concentric subcutaneous edema is noted along the length of the visualized left upper arm. There is also small amount of subcutaneous fluid. No discrete abscess is seen. There is possible mild prominence of the biceps brachii muscle which could be on the basis of edema. No discrete hematoma is visualized. A AV graft is seen in place. Incidental note is made of calcific supraspinatus tendinitis. US of MONI 08/13/2020 AV Graft patent Recent Travel: no PAST MEDICAL HISTORY: coronary artery disease with cardiac stents hypertension hyperlipidemia atrial fibrillation CKD (on hemodialysis) PAST SURGICAL HISTORY: cardiac stents FAMILY HISTORY noncontributory Social History: Smoking:no Alcohol:no Drugs: no Allergies No Known Drug Allergies Allergy (Unknown, Verified 08/13/20 15:07) HOME MEDICATIONS: Home Medications Medication Instructions Recorded Pantoprazole Sodium [Protonix -] 40 mg PO DAILY #30 tablet.ec 02/15/16 Glipizide [Glipizide ER] 10 mg PO BID 07/14/16 Metoprolol Tartrate [Lopressor -] 50 mg PO BID 07/14/16 Warfarin Na [Coumadin -] 5 mg PO DAILY@1800 11/27/18 Aspirin [ASA -] 81 mg PO DAILY 01/31/19 Atorvastatin Ca [Lipitor] 10 mg PO HS 02/01/19 Acetaminophen W/ Codeine #3 1 tab PO Q6H PRN 5 Days #15 tablet 03/01/19 [Tylenol # 3 -] MDD 4 General no acute distress Vital signs reviewed afebrile Neck no JVD Lungs CTA nonlabored breathing effort no rales no wheezing Heart s1s2 rate regualr Abdomen soft nontender nondistended Extremities LUE wrapped with swelling, warm distal and proximal left arm, hand appears to be cold, no cyanosis, no numbness or tingling on exam Skin nail beds pink with good cap refill, no cyanosis Mood calm PHYSICAL EXAMINATION Vital Signs - 24 hr 08/13/20 08/13/20 08/13/20 15:05 20:25 20:33 Temperature 97.8 F Pulse Rate 78 Pulse Rate [ 63 Radial] Respiratory 18 20 Rate Blood Pressure 119/41 L Blood Pressure 100/41 L [Right Arm] O2 Sat by Pulse 100 100 98 Oximetry (%) Laboratory Results - last 24 hr 08/13/20 08/13/20 08/13/20 16:35 16:35 16:35 WBC 9.1 RBC 2.65 L Hgb 9.5 L Hct 28.1 L MCV 106.2 H MCH 35.7 H MCHC 33.6 RDW 21.3 H Plt Count 132 L D MPV 8.2 D Absolute Neuts (auto) 6.8 Neutrophils % 74.5 Lymphocytes % 11.7 D Monocytes % 12.6 H D Eosinophils % 0.7 D Basophils % 0.5 D Nucleated RBC % 0 Hypochromia 1+ Platelet Estimate Decreased Polychromasia 1+ Poikilocytosis 1+ Anisocytosis 2+ Microcytosis 2+ Macrocytosis 1+ Schistocytes 1+ PT with INR 48.20 H INR 4.03 H* PTT (Actin FS) 47.5 H Sodium 137 Potassium 4.3 Chloride 100 Carbon Dioxide 32 Anion Gap 5 L BUN 25.2 H Creatinine 5.5 H Est GFR (CKD-EPI)AfAm 10.82 Est GFR (CKD-EPI)NonAf 9.33 Random Glucose 148 H Calcium 8.3 L Total Bilirubin 0.9 AST 28 ALT 12 L Alkaline Phosphatase 150 H Total Protein 6.7 Albumin 3.2 L ASSESSMENT/PLAN: In summary this is a 75 year old male with a past medical history of coronary artery disease with cardiac stents, hypertension, hyperlipidemia, atrial fibrillation, on coumadin, CKD on hemodialysis (//Mon) who presented from hemodialysis with worsening pain and swelling to site of Left AV graft. He was evaluated in the ER and found to have a patent left AV graft. CT scan of LUE demonstrated concentric subcutaneous edema and a small amount of fluid accumulation and no hematoma. Case was reviewed by Blayne and swelling is due to infiltration of dialysis. He was also found to have an elevated INR. He is being admitted to Medicine for monitoring of bleeding in the setting of an elevated INR and further medical management of left upper extremity swelling. #1 left upper arm swelling /pain secondary to infiltation of dialysis no numbness or paresthesia CT scan and US of LUE results as above afebrile no leukocytosis no bleeding Vascular- Dr. Wright consulted c/w pain control med as needed elevation of left arm recommended #2 elevated INR on coumadin for af hold coumdin as INR supratherapeutic vitamin k 5 mg sq given repeat INR in am monitor for signs of active bleeding #3 CAD hx of prior stents not on plavix, no recent stents placed hold asa with elevated INR resume aspirin once INR normal, at high risk for bleeding c/w statin therapy c/w beta jl #4 atrial fibrillation INR supratherapeutic hold coumadin to reach INR goal between 2.0-3.0 currently in a sinus rhythm c/w metoprolol #5 anemia (macrocytic) hgb 9.5, hct 28.1 , MCV 103.6 check folate and b12 #6 hyperlipidemia LFT's normal c/w statin therapy #7 CKD on HD (,, Mon) left arm AV graft patent but with fluid accumulation/infiltrated, no hematoma Nephrology- Dr. Renita Christianson consulted #8 rule out COVID follow up on nasal swab maintain oxygen level >90% maintain strict isolation and contact precautions FEN no IVF indicated monitor BMP daily renal, low sodium and fat diet DVT Prophylaxis no systemic anticoagulation given elevated INR SCD's Family Medical History Family History: Unremarkable Visit type - Medication Review Med list reviewed for High Risk Meds patients 65 and older: Yes - Emergency Visit Emergency Visit: Yes ED Registration Date: 08/13/20 Care time: The patient presented to the Emergency Department on the above date and was hospitalized for further evaluation of their emergent condition. - New Patient This patient is new to me today: Yes Date on this admission: 08/14/20 - Critical Care Critical Care patient: No
[2020-08-13] MEDS ORDERED: PHYTONADIONE 10 MG/1 ML AMP ONE (22:20)
[2020-08-14 07:36] LABS: INR 3.46 (0.83-1.09); PROTHROMBIN TIME (PATIENT) 41.4 SEC (9.7-13.0)
[2020-08-14 07:39] LABS: HEMOGLOBIN 9.8 GM/dL (11.7-16.9); MCH 36.8 pg (25.7-33.7); MCHC 33.8 g/dl (32.0-35.9); MEAN CELL VOLUME 108.7 fl (80-96); MEAN PLT VOLUME 7.1 fl (7.5-11.1); PLATELET COUNT 90 K/MM3 (134-434); RBC 2.67 M/mm3 (4.00-5.60); RDW 21.5 % (11.9-15.9); WHITE BLOOD COUNT 7.9 K/mm3 (4.0-10.0)
[2020-08-14 08:01] LABS: BLOOD UREA NITROGEN 34.3 mg/dL (7-18); CALCIUM 8.5 mg/dL (8.5-10.1); CREATININE 7.1 mg/dL (0.55-1.3); MAGNESIUM 2.8 mg/dL (1.8-2.4); PHOSPHOROUS 4.2 mg/dL (2.5-4.9); POTASSIUM 4.1 mmol/L (3.5-5.1)
[2020-08-14] MEDS: INSULIN SLIDING SCALE (NOVOLOG) 1 VIAL SQ SCH ×2 (08:12→17:39)
--- NOTE | 2020-08-14 10:38 | EKG ---
Test Reason : Blood Pressure : / mmHG Vent. Rate : 063 BPM Atrial Rate : 063 BPM P-R Int : 256 ms QRS Dur : 102 ms QT Int : 456 ms P-R-T Axes : 002 -40 053 degrees QTc Int : 466 ms SINUS RHYTHM WITH 1ST DEGREE A-V BLOCK LEFT AXIS DEVIATION ABNORMAL ECG WHEN COMPARED WITH ECG OF 27-NOV-2018 20:42, PREMATURE ATRIAL COMPLEXES ARE NO LONGER PRESENT NONSPECIFIC T WAVE ABNORMALITY NO LONGER EVIDENT IN INFERIOR LEADS NONSPECIFIC T WAVE ABNORMALITY, IMPROVED IN LATERAL LEADS Confirmed by SHAHNAZ PALACIOS MD ([id number]) on 08/14/2020 10:38:44 AM Referred By: Confirmed By:SHAHNAZ PALACIOS MD
--- NOTE | 2020-08-14 14:47 | PN ---
Physical Exam: SUBJECTIVE: Patient seen and examined OBJECTIVE: Vital Signs Period Temp Pulse Resp BP Sys/Martel Pulse Ox Last 24 Hr 97.8 F-98.7 F 62-78 15-20 79-119/41-59 98-100 GENERAL: The patient is awake, alert, and fully oriented, in no acute distress. HEAD: Normal with no signs of trauma. EYES: PERRL, extraocular movements intact, sclera anicteric, conjunctiva clear. No ptosis. ENT: Ears normal, nares patent, oropharynx clear without exudates, moist mucous membranes. NECK: Trachea midline, full range of motion, supple. LUNGS: Breath sounds equal, clear to auscultation bilaterally, no wheezes, no crackles, no accessory muscle use. HEART: Regular rate and rhythm, S1, S2 without murmur, rub or gallop. ABDOMEN: Soft, nontender, nondistended, normoactive bowel sounds, no guarding, no rebound, no hepatosplenomegaly, no masses. EXTREMITIES: 2+ pulses, warm, well-perfused, no edema. NEUROLOGICAL: Cranial nerves II through XII grossly intact. Normal speech, gait not observed. PSYCH: Normal mood, normal affect. SKIN: Warm, dry, normal turgor, no rashes or lesions noted Laboratory Results - last 24 hr 08/13/20 08/13/20 08/13/20 16:35 16:35 16:35 WBC 9.1 RBC 2.65 L Hgb 9.5 L Hct 28.1 L MCV 106.2 H MCH 35.7 H MCHC 33.6 RDW 21.3 H Plt Count 132 L D MPV 8.2 D Absolute Neuts (auto) 6.8 Neutrophils % 74.5 Lymphocytes % 11.7 D Monocytes % 12.6 H D Eosinophils % 0.7 D Basophils % 0.5 D Nucleated RBC % 0 Hypochromia 1+ Platelet Estimate Decreased Polychromasia 1+ Poikilocytosis 1+ Anisocytosis 2+ Microcytosis 2+ Macrocytosis 1+ Schistocytes 1+ PT with INR 48.20 H INR 4.03 H* PTT (Actin FS) 47.5 H Sodium 137 Potassium 4.3 Chloride 100 Carbon Dioxide 32 Anion Gap 5 L BUN 25.2 H Creatinine 5.5 H Est GFR (CKD-EPI)AfAm 10.82 Est GFR (CKD-EPI)NonAf 9.33 POC Glucometer Random Glucose 148 H Calcium 8.3 L Phosphorus Magnesium Total Bilirubin 0.9 AST 28 ALT 12 L Alkaline Phosphatase 150 H Total Protein 6.7 Albumin 3.2 L Vitamin B12 Serum Folate 08/14/20 08/14/20 08/14/20 06:55 06:55 06:55 WBC 7.9 RBC 2.67 L Hgb 9.8 L Hct 29.0 L MCV 108.7 H MCH 36.8 H MCHC 33.8 RDW 21.5 H Plt Count 90 L D MPV 7.1 L D Absolute Neuts (auto) Neutrophils % Lymphocytes % Monocytes % Eosinophils % Basophils % Nucleated RBC % Hypochromia Platelet Estimate Polychromasia Poikilocytosis Anisocytosis Microcytosis Macrocytosis Schistocytes PT with INR 41.40 H INR 3.46 H PTT (Actin FS) Sodium 138 Potassium 4.1 Chloride 100 Carbon Dioxide 31 Anion Gap 7 L BUN 34.3 H Creatinine 7.1 H Est GFR (CKD-EPI)AfAm 7.94 Est GFR (CKD-EPI)NonAf 6.85 POC Glucometer Random Glucose 160 H Calcium 8.5 Phosphorus 4.2 Magnesium 2.8 H Total Bilirubin AST ALT Alkaline Phosphatase Total Protein Albumin Vitamin B12 729 Serum Folate 6 08/14/20 08:06 WBC RBC Hgb Hct MCV MCH MCHC RDW Plt Count MPV Absolute Neuts (auto) Neutrophils % Lymphocytes % Monocytes % Eosinophils % Basophils % Nucleated RBC % Hypochromia Platelet Estimate Polychromasia Poikilocytosis Anisocytosis Microcytosis Macrocytosis Schistocytes PT with INR INR PTT (Actin FS) Sodium Potassium Chloride Carbon Dioxide Anion Gap BUN Creatinine Est GFR (CKD-EPI)AfAm Est GFR (CKD-EPI)NonAf POC Glucometer 125 Random Glucose Calcium Phosphorus Magnesium Total Bilirubin AST ALT Alkaline Phosphatase Total Protein Albumin Vitamin B12 Serum Folate Active Medications Generic Name Dose Route Start Last Admin Trade Name Freq PRN Reason Stop Dose Admin Insulin Aspart 1 vial 08/14/20 07:00 08/14/20 08:12 Novolog Vial Sliding Scale - SQ Not Given BIDAC [facility] Protocol ASSESSMENT/PLAN: 75 YO man with Mhx of CAD s/p stents, hypertension, hyperlipidemia, atrial fibrillation, on warfarin, ESRD on HD (//Mon) who presents from hemodialysis today with worsening pain and swelling to site of Left AV graft # Lt upper AVG swelling hematoma? no fever, no leukocytosis, non tender CT done: Concentric subcutaneous edema is noted along the length of the visualized left upper arm. There is also small amount of subcutaneous fluid. No discrete abscess is seen. There is possible mild prominence of the biceps brachii muscle which could be on the basis of edema. No discrete hematoma is visualized. A AV graft is seen in place. vascular consult requested, pending recs Nephrology consult Supratherapeutic INR continue to hold coumadin, recheck in AM no further vit K at this time monitor H&H CAD s/p stents HTN HLD AFib on warfarin ESRD on HD DVT prophylaxis - Holding coumadin for supratherapeutic INR Visit type - Emergency Visit Emergency Visit: Yes ED Registration Date: 08/13/20 Care time: The patient presented to the Emergency Department on the above date and was hospitalized for further evaluation of their emergent condition. - New Patient This patient is new to me today: Yes Date on this admission: 08/14/20 - Critical Care Critical Care patient: No - Discharge Referral Referred to [facility] Med P.C.: No - Medication Review Med list reviewed for High Risk Meds patients 65 and older: Yes (yes)
--- NOTE | 2020-08-14 15:03 | CON.NEP ---
Consult Consult Specialty:: Nephrology Referred by:: ED Reason for Consultation:: ESRD on HD with access arm pain and swelling. - History of Present Illness Chief Complaint: access arm swelling and pain History of Present Illness: This is a 75 year old male with history of ESRD on HD, CAD s/p PCI and stents, hyperlipidemia, atrial fibrillation on Coumadin, hyperlipidemia who presented to the ED with access arm swelling and tenderness following his dialysis. He had dialysis last on . He reports having arm swelling following his dialysis on Monday but it got worse after dialysis on . Denies any numbness or weakness in the arm. Denies any chest pain, abdominal pain, fever, chills. Arm tenderness is resolved now. CT did not show overt hematoma and Duplex showed functioning access. - History Source History Provided By: Patient - Past Medical History MANAGER HEMATOLOGY: Yes: TIA Cardio/Vascular: Yes: AFIB, HTN, Hyperlipdemia Gastrointestinal: Yes: Other (Tubular Adenoma (subcentimeter) removed 07/05, Dysphagia) Renal/: Yes: Renal Failure, BPH, Hemodialysis (//Mon) - Past Surgical History Past Surgical History: Yes: AV Fistula/Graft (left arm) - Alcohol/Substance Use Hx Alcohol Use: No - Smoking History Smoking history: Never smoked Have you smoked in the past 12 months: No Aproximately how many cigarettes per day: 0 If you are a former smoker, when did you quit?: Over 1 years ago - Social History Usual Living Arrangement: With Spouse ADL: Independent Occupation: Retired from [employer] History of Recent Travel: No Home Medications - Allergies Allergies/Adverse Reactions: Allergies Allergy/AdvReac Type Severity Reaction Status Date / Time No Known Drug Allergies Allergy Unknown Verified 08/13/20 15:07 - Home Medications Home Medications: Ambulatory Orders Pantoprazole Sodium [Protonix -] 40 mg PO DAILY #30 tablet.ec 02/15/16 Glipizide [Glipizide ER] 10 mg PO BID 07/14/16 Metoprolol Tartrate [Lopressor -] 50 mg PO BID 07/14/16 Warfarin Na [Coumadin -] 5 mg PO DAILY@1800 11/27/18 Aspirin [ASA -] 81 mg PO DAILY 01/31/19 Atorvastatin Ca [Lipitor] 10 mg PO HS 02/01/19 Acetaminophen W/ Codeine #3 [Tylenol # 3 -] 1 tab PO Q6H PRN 5 Days #15 tablet MDD 4 03/01/19 Family Medical History Family History: Unremarkable Review of Systems - Review of Systems Constitutional: reports: No Symptoms Eyes: reports: No Symptoms HENT: reports: No Symptoms Neck: reports: No Symptoms Cardiovascular: reports: No Symptoms Respiratory: reports: No Symptoms Gastrointestinal: reports: No Symptoms Genitourinary: reports: No Symptoms Musculoskeletal: reports: No Symptoms Integumentary: reports: No Symptoms Neurological: reports: No Symptoms Endocrine: reports: No Symptoms Nephrology Consult - Height Height: 5 ft 7 in - Weight Weight: 96.162 kg - BMI Body Mass Index (BMI): 33.2 - Lab Results CBC,BMP: CBC, BMP 08/14/20 06:55 08/14/20 06:55 Anion Gap: Anion Gap Anion Gap 7 MMOL/L (8-16) L 08/14/20 06:55 - Physical Examination Vital Signs: Vital Signs Temperature 98.7 F 08/14/20 03:07 Pulse Rate 65 08/14/20 12:00 Respiratory Rate 16 08/14/20 11:58 Blood Pressure 96/45 L 08/14/20 12:00 O2 Sat by Pulse Oximetry (%) 100 08/14/20 11:58 Constitutional: Yes: No Distress, Calm HENT: Yes: Atraumatic Neck: Yes: Supple Cardiovascular: Yes: Regular Rate and Rhythm Respiratory: Yes: Regular, CTA Bilaterally. No: Rales, Rhonchi, SOB Gastrointestinal: Yes: Soft Access for Hemodialysis: AV Graft Extremities: Yes: Other (swelling and tenderness in access arm) Edema: Yes Edema: LUE: 2+, LLE: Trace, RLE: Trace Neurological: Yes: Alert Assessment/Plan 5 year old male with history of ESRD on HD, CAD s/p PCI and stents, hyperlipidemia, atrial fibrillation on Coumadin, hyperlipidemia who presented to the ED with access arm swelling and tenderness following his dialysis. He had dialysis last on . 1. Swelling and tenderness of access arm likely due to infiltration during dialysis in setting of elevated INR 2. Supratheraputic INR 3. ESRD on HD 4. CKD related anemia 5. Hypertension 6. Hyperlipidemia 7. CAD No overt hematoma seen in the arm. Access is functional. INR improved s/p Vit K, continue adjusted dose of Warfarin per medicine. Vascular consulted. Would not wrap whole arm as it can compress and occlude the AVG. Less likely to have continuous bleeding as INR is improved If any further discomfort would place cold pack/compression on access. will arrange dialysis tomorrow to ensure access if functioning well if pt is able to tolerate dialysis well and there is no further infiltration or arm swelling can anticipate discharge following dialysis. Shayne Johnson DO
[2020-08-14] MEDS ORDERED: SODIUM CHLORIDE 250 ML IV PRN (15:17)
[2020-08-14] MEDS: METOPROLOL TARTRATE 50 MG TABLET (FP) PO SCH (22:00)
[2020-08-14 23:40] VITALS: BMI 32.7
[2020-08-15] MEDS: INSULIN SLIDING SCALE (NOVOLOG) 1 VIAL SQ SCH ×2 (07:13→16:57)
[2020-08-15 08:55] LABS: INR 1.58 (0.83-1.09); PROTHROMBIN TIME (PATIENT) 18.7 SEC (9.7-13.0)
[2020-08-15 08:58] LABS: HEMATOCRIT 23.8 % (35.4-49); HEMOGLOBIN 8.1 GM/dL (11.7-16.9); MCH 36.1 pg (25.7-33.7); MEAN CELL VOLUME 106.2 fl (80-96); MEAN PLT VOLUME 7.6 fl (7.5-11.1); PLATELET COUNT 105 K/MM3 (134-434); RBC 2.24 M/mm3 (4.00-5.60); RDW 21.2 % (11.9-15.9); WHITE BLOOD COUNT 9.2 K/mm3 (4.0-10.0)
[2020-08-15] MEDS ORDERED: EPOETIN ALFA 10,000 UNIT/1 ML VIAL IVPUSH ONE (09:00)
--- NOTE | 2020-08-15 09:15 | PN ---
Progress Note (short form) - Note Progress Note: RENAL Pt is awake and alert seen during hd no specific complaints Last Vital Signs Temp Pulse Resp BP Pulse Ox 98.3 F 74 18 116/55 L 100 08/15/20 06:41 08/15/20 08:30 08/15/20 08:30 08/15/20 08:30 08/15/20 06:41 lungs clear cvs s1s2 rr abd soft ext +left upper ext edema neuro a+ox3 CBC, BMP 08/15/20 08:15 Current Medications Generic Name Dose Route Start Last Admin Trade Name Freq PRN Reason Stop Dose Admin Sodium Chloride 250 mls @ 3,000 mls/hr 08/14/20 15:17 Normal Saline - IV 08/15/20 15:17 PRN PRN Hypotension during Dialysis Insulin Aspart 1 vial 08/14/20 07:00 08/15/20 07:13 Novolog Vial Sliding Scale - SQ Not Given BIDAC JOSSY Protocol Metoprolol Tartrate 50 mg 08/14/20 22:00 08/14/20 22:00 Lopressor - PO Not Given BID JOSSY Pantoprazole Sodium 40 mg 08/15/20 10:00 Protonix - PO DAILY [facility] 75 year old male with history of ESRD on HD, CAD s/p PCI and stents, hyperlipidemia, atrial fibrillation on Coumadin, hyperlipidemia who presented to the ED with access arm swelling and tenderness following his dialysis. He had dialysis last on . 1. Swelling and tenderness of access arm likely due to infiltration during dialysis in setting of elevated INR 2. Supratheraputic INR 3. ESRD on HD 4. CKD related anemia 5. Hypertension 6. Hyperlipidemia 7. CAD continue tiw hd he is currently tolerating it can use heat at this point if arm not enlrging MV
[2020-08-15 09:25] LABS: BLOOD UREA NITROGEN 55.4 mg/dL (7-18); CALCIUM 8.2 mg/dL (8.5-10.1); POTASSIUM 4.4 mmol/L (3.5-5.1)
[2020-08-15] MEDS ORDERED: PANTOPRAZOLE 40 MG TABLET PO SCH (10:00)
[2020-08-15 10:05] LABS: CREATININE 9.6 mg/dL (0.55-1.3)
[2020-08-15 11:40] VITALS: PULSE 83
[2020-08-15] MEDS ORDERED: PT OWN MED DRAWER 7, Y5N ONE (13:18)
[2020-08-15] MEDS: METOPROLOL TARTRATE 50 MG TABLET (FP) PO SCH (13:22)
[2020-08-15 14:39] VITALS: BP 138/90; TEMP 98.4
--- NOTE | 2020-08-15 16:25 | DS ---
Physical Examination Vital Signs: Vital Signs Temperature 98.4 F 08/15/20 14:00 Pulse Rate 83 08/15/20 11:30 Respiratory Rate 20 08/15/20 14:00 Blood Pressure 138/90 08/15/20 14:00 O2 Sat by Pulse Oximetry (%) 100 08/15/20 07:45 Constitutional: Yes: Well Nourished, No Distress, Calm Eyes: Yes: WNL, Conjunctiva Clear, EOM Intact HENT: Yes: WNL, Atraumatic, Normocephalic Neck: Yes: WNL, Supple, Trachea Midline Cardiovascular: Yes: WNL, Regular Rate and Rhythm Respiratory: Yes: WNL, Regular, CTA Bilaterally Gastrointestinal: Yes: WNL, Normal Bowel Sounds, Soft Musculoskeletal: Yes: WNL Extremities: Yes: WNL Edema: Yes Edema: LUE: 2+ Peripheral Pulses WNL: Yes Integumentary: Yes: WNL Neurological: Yes: WNL, Alert, Oriented ...Motor Strength: WNL Psychiatric: Yes: WNL, Alert, Oriented Labs: CBC, BMP 08/15/20 08:15 08/15/20 08:15 Discharge Summary Problems reviewed: Yes Reason For Visit: SWELLING OF LEFT UPPER EXTREMITY, ELEVATED Current Active Problems Elevated INR (Acute) Left arm swelling (Acute) Hospital Course: 75 Year old male with a PMHx notable for CAD s/p stents, hypertension, hyperlipidemia, atrial fibrillation, on warfarin, ESRD on HD (//Mon) who presented from hemodialysis with worsening pain and swelling to site of Left AV graft # Left upper AVG swelling hematoma? no fever, no leukocytosis, non tender CT done: Concentric subcutaneous edema is noted along the length of the visualized left upper arm. There is also small amount of subcutaneous fluid. No discrete abscess is seen. There is possible mild prominence of the biceps brachii muscle which could be on the basis of edema. No discrete hematoma is visualized. A AV graft is seen in place. vascular consult requested Nephrology consult # Supratherapeutic INR Held INR, INR decreased on day of discharge=1.58 Resume coumadin but at lower dose 3mg down from 5mg monitor Hgb & Hct as an outpatient # CAD s/p stents HTN HLD Atrial Fibrilliation on warfarin ESRD on HD Condition: Good - Instructions Diet, Activity, Other Instructions: Renal Diet Disposition: HOME - Home Medications Comprehensive Discharge Medication List: Ambulatory Orders Pantoprazole Sodium [Protonix -] 40 mg PO DAILY #30 tablet.ec 02/15/16 Glipizide [Glipizide ER] 10 mg PO BID 07/14/16 Metoprolol Tartrate [Lopressor -] 50 mg PO BID 07/14/16 Aspirin [ASA -] 81 mg PO DAILY 01/31/19 Atorvastatin Ca [Lipitor] 10 mg PO HS 02/01/19 Acetaminophen W/ Codeine #3 [Tylenol # 3 -] 1 tab PO Q6H PRN 5 Days #15 tablet MDD 4 03/01/19 Insulin Sliding Scale [Novolog Vial Sliding Scale -] 1 vial SQ BIDAC units 08/15/20 Metoprolol Tartrate [Lopressor -] 50 mg PO BID tablet 08/15/20 Pantoprazole Sodium [Protonix -] 40 mg PO DAILY tablet.ec 08/15/20 Warfarin Na [Coumadin] 3 mg PO HS 30 Days #30 tablet 08/15/20 This patient is new to me today: Yes Date on this admission: 08/15/20 Emergency Visit: Yes ED Registration Date: 08/13/20 Care time: The patient presented to the Emergency Department on the above date and was hospitalized for further evaluation of their emergent condition. Critical Care patient: No - Discharge Referral Referred to [facility] Med P.C.: No
== END 2020-08-15 16:58 | disposition home or self-care (01) | DRG 314 ==
LOC: JER 14:49 → JERBED 20:23 → J8W 08-14 20:29
PROVIDERS: ADMIT Internal Medicine; ATTEND Internal Medicine
PROC: 5A1D70Z Performance of Urinary Filtration, Intermittent, Less than 6 Hours Per Day (ICD-10-PCS; principal; 2020-08-15)
DX: T82.898A Other specified complication of vascular prosthetic devices, implants and grafts, initial encounter (principal); N18.6 End stage renal disease; I12.0 Hypertensive chronic kidney disease with stage 5 chronic kidney disease or end stage renal disease; R79.1 Abnormal coagulation profile; I25.10 Atherosclerotic heart disease of native coronary artery without angina pectoris; E11.22 Type 2 diabetes mellitus with diabetic chronic kidney disease; Z99.2 Dependence on renal dialysis; M79.89 Other specified soft tissue disorders; I48.91 Unspecified atrial fibrillation; Z79.01 Long term (current) use of anticoagulants; E78.5 Hyperlipidemia, unspecified; Z79.84 Long term (current) use of oral hypoglycemic drugs; D63.1 Anemia in chronic kidney disease; Y83.8 Other surgical procedures as the cause of abnormal reaction of the patient, or of later complication, without mention of misadventure at the time of the procedure
CPT/HCPCS: 36415; 71045-TC-FY; 73200-TC-RT; 80048; 80053; 82607; 82746; 82962; 83735; 84100; 85025; 85027; 85610; 85730; 86803; 87340; 93005; 93010; 93971; 99285-25; J0885; U0003

== ENCOUNTER 2023-03-04 11:51 | Emergency (ER) | payer OTHER ==
[2023-03-04 12:46] VITALS: TEMP 98.7; BMI 28.0
[2023-03-04 13:28] LABS: BASO % 0.3 % (0-2.0); EOS % 1.4 % (0-4.5); HEMATOCRIT 29.6 % (35.4-49); HEMOGLOBIN 10.2 GM/dL (11.7-16.9); LYMPH % 11.5 % (8-40); MCH 34.9 pg (25.7-33.7); MCHC 34.3 g/dl (32.0-35.9); MEAN CELL VOLUME 101.9 fl (80-96); MEAN PLT VOLUME 7.1 fl (7.5-11.1); MONO % 9.1 % (3.8-10.2); NEUT % 77.7 % (42.8-82.8); PLATELET COUNT 154 10^3/uL (134-434); RBC 2.91 M/mm3 (4.00-5.60); RDW 18.3 % (11.9-15.9); WHITE BLOOD COUNT 11.3 K/mm3 (4.0-10.0)
[2023-03-04 13:32] LABS: INR 1.5 (0.83-1.09); PROTHROMBIN TIME (PATIENT) 17.3 SEC (9.7-13.0)
[2023-03-04 13:35] LABS: ACTIVATED PTT 31.8 SECONDS (25.2-36.5)
[2023-03-04 13:52] LABS: CHLORIDE 104 mmol/L (98-107); SODIUM 139 mmol/L (136-145)
[2023-03-04 13:54] LABS: CALCIUM 8.7 mg/dL (8.5-10.1)
[2023-03-04 13:55] LABS: ALBUMIN 3.3 g/dl (3.4-5.0); ANION GAP 7 MMOL/L (8-16); BLOOD UREA NITROGEN 47.3 mg/dL (7-18); CO2 28 mmol/L (21-32); GLUCOSE,RANDOM 93 mg/dL (74-106); MAGNESIUM 2.3 mg/dL (1.8-2.4)
[2023-03-04 13:59] LABS: PHOSPHOROUS 3.3 mg/dL (2.5-4.9); SGOT/AST 15 U/L (15-37); SGPT/ALT 21 U/L (13-61)
[2023-03-04 14:00] LABS: BILIRUBIN,TOTAL 0.8 mg/dL (0.2-1); TOT PROT 6.6 g/dl (6.4-8.2)
[2023-03-04 14:01] LABS: ALK PHOS 97 U/L (45-117)
[2023-03-04 14:06] LABS: CREATININE 8.2 mg/dL (0.55-1.3)
[2023-03-04 14:07] VITALS: PULSE 89; RESP 16
[2023-03-04] MEDS ORDERED: SODIUM ZIRCONIUM CYCLOSILICATE (LOKELMA) 5 GM PACKET PO ONE (15:04)
[2023-03-04] MEDS ORDERED: SODIUM ZIRCONIUM CYCLOSILICATE (LOKELMA) 5 GM PACKET ONE (15:08)
[2023-03-04 16:23] VITALS: BP 106/61
== END 2023-03-04 16:25 | disposition home or self-care (01) ==
LOC: JER 11:51
DX: T82.590A Other mechanical complication of surgically created arteriovenous fistula, initial encounter (principal); Y84.1 Kidney dialysis as the cause of abnormal reaction of the patient, or of later complication, without mention of misadventure at the time of the procedure; Z20.822 Contact with and (suspected) exposure to COVID-19
CPT/HCPCS: 0241U-QW; 36415; 76937; 80053; 82962; 83735; 84100; 85025; 85610; 85730; 86850; 86900; 86901; 93005; 93010; 99285-25

== ENCOUNTER 2023-07-07 08:42 | Observation (INO) | payer OTHER ==
[2023-07-07 08:52] VITALS: BMI 29.2
[2023-07-07 10:14] LABS: BASO % 0.8 % (0-2.0); EOS % 2.6 % (0-4.5); HEMATOCRIT 31.2 % (35.4-49); HEMOGLOBIN 10.3 GM/dL (11.7-16.9); LYMPH % 12.6 % (8-40); MCH 33.9 pg (25.7-33.7); MCHC 33.1 g/dl (32.0-35.9); MEAN CELL VOLUME 102.3 fl (80-96); MEAN PLT VOLUME 7.1 fl (7.5-11.1); MONO % 10.5 % (3.8-10.2); NEUT % 73.5 % (42.8-82.8); PLATELET COUNT 142 10^3/uL (134-434); RBC 3.05 M/mm3 (4.00-5.60); RDW 18.8 % (11.9-15.9); WHITE BLOOD COUNT 8.9 K/mm3 (4.0-10.0)
[2023-07-07 10:17] LABS: INR 1.7 (0.83-1.09); PROTHROMBIN TIME (PATIENT) 19.6 SEC (9.7-13.0)
[2023-07-07 10:20] LABS: ACTIVATED PTT 33.7 SECONDS (25.2-36.5)
[2023-07-07 10:52] LABS: CHLORIDE 101 mmol/L (98-107); POTASSIUM 5.9 mmol/L (3.5-5.1); SODIUM 136 mmol/L (136-145)
[2023-07-07 10:58] LABS: ALBUMIN 3.2 g/dl (3.4-5.0); ANION GAP 12 MMOL/L (8-16); CALCIUM 7.9 mg/dL (8.5-10.1); CO2 23 mmol/L (21-32); GLUCOSE,RANDOM 97 mg/dL (74-106); MAGNESIUM 2.4 mg/dL (1.8-2.4)
[2023-07-07 10:59] LABS: BLOOD UREA NITROGEN 70.9 mg/dL (7-18)
[2023-07-07 11:00] LABS: ALK PHOS 93 U/L (45-117)
[2023-07-07 11:02] LABS: PHOSPHOROUS 4.9 mg/dL (2.5-4.9); SGOT/AST 28 U/L (15-37); SGPT/ALT 28 U/L (13-61)
[2023-07-07 11:03] LABS: BILIRUBIN,TOTAL 0.4 mg/dL (0.2-1); TOT PROT 6.7 g/dl (6.4-8.2)
[2023-07-07 11:18] LABS: CREATININE 10.5 mg/dL (0.55-1.3)
[2023-07-07 12:18] LABS: POTASSIUM 6.1 mmol/L (3.5-5.1)
[2023-07-07] MEDS ORDERED: CALCIUM CHLORIDE 10% 1 GM/10 ML *VIAL IVPB ONE (12:35)
[2023-07-07] MEDS ORDERED: INSULIN REGULAR HUMAN 100 UNITS/ML *VIAL IVPUSH ONE (12:35)
[2023-07-07] MEDS ORDERED: DEXTROSE 50%-WATER - 25 GM/50 ML VIAL IVPUSH ONE ×2 (12:36→15:58)
[2023-07-07] MEDS ORDERED: DEXTROSE 50%-WATER 25 GM/50 ML DISP.SYRIN ONE ×2 (12:53→15:57)
[2023-07-07] MEDS ORDERED: MIDODRINE HCL 5 MG TABLET ONE (12:53)
[2023-07-07] MEDS ORDERED: SEVELAMER CARBONATE 800 MG TAB (FP) ONE (12:53)
[2023-07-07] MEDS ORDERED: CALCIUM GLUCONATE 10% - 1,000 MG/10 ML VIAL ONE (12:55)
[2023-07-07] MEDS ORDERED: CALCIUM GLUCONATE 10% - 1,000 MG/10 ML VIAL IVPUSH ONE (13:00)
[2023-07-07] MEDS ORDERED: MIDODRINE HCL 5 MG TABLET PO SCH (13:00)
[2023-07-07] MEDS: SEVELAMER CARBONATE 800 MG TAB (FP) PO SCH (13:18)
[2023-07-07 14:56] LABS: CHLORIDE 104 mmol/L (98-107); POTASSIUM 4.6 mmol/L (3.5-5.1); SODIUM 139 mmol/L (136-145)
[2023-07-07 14:58] LABS: CALCIUM 8.2 mg/dL (8.5-10.1)
[2023-07-07 14:59] LABS: ANION GAP 11 MMOL/L (8-16); BLOOD UREA NITROGEN 67.5 mg/dL (7-18); CO2 25 mmol/L (21-32)
[2023-07-07 15:21] LABS: CREATININE 11.1 mg/dL (0.55-1.3); GLUCOSE,RANDOM 45 mg/dL (74-106)
[2023-07-07] MEDS ORDERED: SODIUM CHLORIDE 250 ML IV PRN ×2 (15:25→18:46)
[2023-07-07] MEDS ORDERED: DEXTROSE 50%-WATER - 25 GM/50 ML VIAL IVPUSH PRN (16:04)
[2023-07-07] MEDS ORDERED: DEXTROSE 50%-WATER 25 GM/50 ML DISP.SYRIN IVPUSH PRN ×2 (16:06→18:46)
[2023-07-07] MEDS ORDERED: DEXTROSE 50%-WATER 25 GM/50 ML DISP.SYRIN IVPUSH ONE (16:07)
[2023-07-07] MEDS ORDERED: HEPARIN NA (PORCINE) 5,000 UNITS/ML 1ML VIAL ONE (16:08)
[2023-07-07] MEDS ORDERED: INSULIN SLIDING SCALE (NOVOLOG) 1 VIAL SQ SCH (16:30)
[2023-07-07] MEDS ORDERED: MIDAZOLAM HCL 2 MG/2 ML SINGLE DOSE VIAL ONE (16:37)
[2023-07-07] MEDS ORDERED: PROPOFOL 20 ML ONE (16:37)
[2023-07-07] MEDS ORDERED: PROPOFOL 40 ML ONE (17:02)
[2023-07-07] MEDS ORDERED: ceFAZolin SODIUM 1 GM VIAL IVPB ONE (17:15)
[2023-07-07] MEDS ORDERED: ONDANSETRON 4 MG/2 ML VIAL ONE (17:19)
[2023-07-07] MEDS ORDERED: DEXAMETHASONE SOD PHOSPHATE 4 MG/1 ML VIAL ONE (17:19)
[2023-07-07] MEDS ORDERED: LIDOCAINE HCL 1%, 10 MG/ML (20ML VIAL) INF ONE (17:25)
[2023-07-07] MEDS ORDERED: IOHEXOL 300 MG/ML INFUS..BTL IV ONE (18:04)
[2023-07-07] MEDS ORDERED: ONDANSETRON 4 MG/2 ML VIAL IVPUSH PRN (18:17)
[2023-07-07] MEDS ORDERED: SODIUM CHLORIDE 50 ML IV STA (18:17)
[2023-07-07] MEDS: INSULIN SLIDING SCALE (NOVOLOG) 1 VIAL SQ SCH (21:51)
[2023-07-07] MEDS ORDERED: ATORVASTATIN CA 20 MG TABLET (FP) PO SCH (22:00)
[2023-07-07] MEDS ORDERED: APIXABAN 5 MG TABLET PO SCH (22:00)
[2023-07-07] MEDS: APIXABAN 5 MG TABLET PO SCH (22:18)
[2023-07-07] MEDS: ATORVASTATIN CA 20 MG TABLET (FP) PO SCH (22:18)
[2023-07-08] MEDS: INSULIN SLIDING SCALE (NOVOLOG) 1 VIAL SQ SCH ×4 (06:20→22:34)
[2023-07-08 06:26] LABS: HEMATOCRIT 32.6 % (35.4-49); HEMOGLOBIN 10.6 GM/dL (11.7-16.9); MCH 33.6 pg (25.7-33.7); MCHC 32.4 g/dl (32.0-35.9); MEAN CELL VOLUME 103.8 fl (80-96); MEAN PLT VOLUME 7.5 fl (7.5-11.1); PLATELET COUNT 144 10^3/uL (134-434); RBC 3.14 M/mm3 (4.00-5.60); RDW 18.4 % (11.9-15.9); WHITE BLOOD COUNT 11.2 K/mm3 (4.0-10.0)
[2023-07-08 07:05] LABS: CHLORIDE 100 mmol/L (98-107); SODIUM 134 mmol/L (136-145)
[2023-07-08 07:07] LABS: CALCIUM 8.2 mg/dL (8.5-10.1)
[2023-07-08 07:08] LABS: ALBUMIN 3.2 g/dl (3.4-5.0); BLOOD UREA NITROGEN 87.4 mg/dL (7-18); CO2 22 mmol/L (21-32); GLUCOSE,RANDOM 312 mg/dL (74-106); MAGNESIUM 2.4 mg/dL (1.8-2.4)
[2023-07-08 07:11] LABS: PHOSPHOROUS 5.8 mg/dL (2.5-4.9); SGOT/AST 20 U/L (15-37); SGPT/ALT 29 U/L (13-61)
[2023-07-08 07:12] LABS: BILIRUBIN,TOTAL 0.4 mg/dL (0.2-1)
[2023-07-08 07:13] LABS: TOT PROT 6.7 g/dl (6.4-8.2)
[2023-07-08 07:14] LABS: ALK PHOS 102 U/L (45-117)
[2023-07-08 07:16] LABS: ANION GAP 12 MMOL/L (8-16); CREATININE 12.1 mg/dL (0.55-1.3); POTASSIUM 7.1 mmol/L (3.5-5.1)
[2023-07-08] MEDS ORDERED: CALCIUM GLUCONATE 10% - 1,000 MG/10 ML VIAL IVPB ONE (08:01)
[2023-07-08] MEDS ORDERED: DEXTROSE 50%-WATER - 25 GM/50 ML VIAL IVPUSH ONE (08:02)
[2023-07-08 09:54] LABS: HEMATOCRIT 31.6 % (35.4-49); HEMOGLOBIN 10.2 GM/dL (11.7-16.9); MCH 33.5 pg (25.7-33.7); MCHC 32.4 g/dl (32.0-35.9); MEAN CELL VOLUME 103.6 fl (80-96); MEAN PLT VOLUME 7.4 fl (7.5-11.1); PLATELET COUNT 158 10^3/uL (134-434); RBC 3.05 M/mm3 (4.00-5.60); RDW 18.2 % (11.9-15.9); WHITE BLOOD COUNT 11.7 K/mm3 (4.0-10.0)
[2023-07-08] MEDS ORDERED: DUTASTERIDE 0.5 MG CAP (FP) PO SCH (10:00)
[2023-07-08] MEDS ORDERED: CINACALCET HCL 30 MG TAB (FP) PO SCH (10:00)
[2023-07-08 10:02] LABS: ANISOCYTOSIS 1+; MACROCYTOSIS 1+
[2023-07-08 10:29] LABS: CHLORIDE 100 mmol/L (98-107); SODIUM 134 mmol/L (136-145)
[2023-07-08 10:30] LABS: ANION GAP 14 MMOL/L (8-16); BLOOD UREA NITROGEN 86.3 mg/dL (7-18); CALCIUM 8.3 mg/dL (8.5-10.1); CO2 20 mmol/L (21-32)
[2023-07-08 10:31] LABS: GLUCOSE,RANDOM 328 mg/dL (74-106)
[2023-07-08 10:38] LABS: CREATININE 11.9 mg/dL (0.55-1.3)
[2023-07-08] MEDS ORDERED: SODIUM ZIRCONIUM CYCLOSILICATE (LOKELMA) 5 GM PACKET PO ONE ×3 (12:37→17:00)
[2023-07-08] MEDS: SEVELAMER CARBONATE 800 MG TAB (FP) PO SCH ×4 (12:50→16:56)
[2023-07-08] MEDS ORDERED: INSULIN (NOVOLOG) ASPART 100 UNITS/ML 10ML VIAL ONE (12:59)
[2023-07-08] MEDS: INSULIN (NOVOLOG) ASPART 100 UNITS/ML 10ML VIAL SQ ONE ×2 (13:02→14:09)
[2023-07-08] MEDS: APIXABAN 5 MG TABLET PO SCH ×2 (14:01→22:30)
[2023-07-08] MEDS: CINACALCET HCL 30 MG TAB (FP) PO SCH (14:01)
[2023-07-08] MEDS: SODIUM ZIRCONIUM CYCLOSILICATE (LOKELMA) 5 GM PACKET PO ONE ×3 (14:05→16:59)
[2023-07-08] MEDS: DUTASTERIDE 0.5 MG CAP (FP) PO SCH (14:05)
[2023-07-08] MEDS: INSULIN (LEVEMIR) 100 UNITS/ML UNITS SQ SCH (14:09)
[2023-07-08 14:49] VITALS: RESP 20
[2023-07-08 20:50] LABS: CHLORIDE 100 mmol/L (98-107); POTASSIUM 4.8 mmol/L (3.5-5.1); SODIUM 139 mmol/L (136-145)
[2023-07-08 20:52] LABS: ANION GAP 9 MMOL/L (8-16); CALCIUM 8.1 mg/dL (8.5-10.1); CO2 31 mmol/L (21-32); GLUCOSE,RANDOM 199 mg/dL (74-106)
[2023-07-08 21:11] LABS: BLOOD UREA NITROGEN 48.8 mg/dL (7-18); CREATININE 8.6 mg/dL (0.55-1.3)
[2023-07-08] MEDS: ATORVASTATIN CA 20 MG TABLET (FP) PO SCH (22:31)
[2023-07-09] MEDS: INSULIN (LEVEMIR) 100 UNITS/ML UNITS SQ SCH (06:29)
[2023-07-09] MEDS: INSULIN SLIDING SCALE (NOVOLOG) 1 VIAL SQ SCH ×2 (06:29→11:49)
[2023-07-09] MEDS: SEVELAMER CARBONATE 800 MG TAB (FP) PO SCH ×2 (09:11→12:00)
[2023-07-09] MEDS: APIXABAN 5 MG TABLET PO SCH (09:11)
[2023-07-09] MEDS: CINACALCET HCL 30 MG TAB (FP) PO SCH (09:11)
[2023-07-09] MEDS: DUTASTERIDE 0.5 MG CAP (FP) PO SCH (09:11)
[2023-07-09 09:13] LABS: BASO % 0.3 % (0-2.0); EOS % 1.2 % (0-4.5); HEMATOCRIT 31.9 % (35.4-49); HEMOGLOBIN 10.4 GM/dL (11.7-16.9); LYMPH % 8.8 % (8-40); MCH 33.8 pg (25.7-33.7); MCHC 32.6 g/dl (32.0-35.9); MEAN CELL VOLUME 103.8 fl (80-96); MONO % 9.3 % (3.8-10.2); NEUT % 80.4 % (42.8-82.8); PLATELET COUNT 132 10^3/uL (134-434); RBC 3.07 M/mm3 (4.00-5.60); RDW 18.7 % (11.9-15.9); WHITE BLOOD COUNT 10.1 K/mm3 (4.0-10.0)
[2023-07-09 09:34] LABS: CHLORIDE 100 mmol/L (98-107); POTASSIUM 4.9 mmol/L (3.5-5.1); SODIUM 139 mmol/L (136-145)
[2023-07-09 09:42] LABS: ANION GAP 11 MMOL/L (8-16); BLOOD UREA NITROGEN 55.6 mg/dL (7-18); CALCIUM 8.2 mg/dL (8.5-10.1); CO2 28 mmol/L (21-32); GLUCOSE,RANDOM 172 mg/dL (74-106)
[2023-07-09 09:46] LABS: CREATININE 9.4 mg/dL (0.55-1.3)
[2023-07-09] MEDS ORDERED: MIDODRINE HCL 5 MG TABLET PO SCH (10:00)
[2023-07-09 15:05] VITALS: BP 100/61; PULSE 108; TEMP 98.2
== END 2023-07-09 13:50 | disposition home or self-care (01) ==
LOC: JER 08:42 → JERBED 10:24 → J6S 14:33
PROVIDERS: ADMIT Internal Medicine; ATTEND Internal Medicine
PROC: B517ZZZ Fluoroscopy of Left Subclavian Vein (ICD-10-PCS; principal; 2023-07-07 18:00)
DX: T82.590A Other mechanical complication of surgically created arteriovenous fistula, initial encounter (principal); I25.10 Atherosclerotic heart disease of native coronary artery without angina pectoris; I11.9 Hypertensive heart disease without heart failure; E87.5 Hyperkalemia; I13.11 Hypertensive heart and chronic kidney disease without heart failure, with stage 5 chronic kidney disease, or end stage renal disease; N18.6 End stage renal disease; Z99.2 Dependence on renal dialysis; D63.1 Anemia in chronic kidney disease; E78.5 Hyperlipidemia, unspecified; I48.91 Unspecified atrial fibrillation; I95.9 Hypotension, unspecified; X58.XXXA Exposure to other specified factors, initial encounter; Y99.8 Other external cause status; R01.1 Cardiac murmur, unspecified
CPT/HCPCS: 36415; 71045-TC-FY; 76000-TC-FY; 80048; 80053; 82962; 83735; 84100; 84132; 85025; 85027; 85610; 85730; 86803; 86850; 86900; 86901; 87340; 93005; 93010; 94760; 99285-25; G0378; J1644

== ENCOUNTER 2023-11-10 05:13 | Day surgery (SDC) | payer OTHER ==
[2023-11-08 10:04] VITALS: BMI 27.7
[2023-11-10] MEDS ORDERED: POVIDONE-IODINE OINTMENT 10% - 28.4 GM TUBE ONE (09:22)
[2023-11-10] MEDS ORDERED: PAPAVERINE HCL 30 MG/1 ML 10 ML VIAL NR ONE (09:23)
[2023-11-10] MEDS ORDERED: LIDOCAINE HCL 1%, 10 MG/ML (20ML VIAL) ONE (09:23)
[2023-11-10] MEDS ORDERED: HEPARIN NA (PORCINE) 5,000 UNITS/ML 1ML VIAL ONE (09:23)
[2023-11-10] MEDS ORDERED: MIDAZOLAM HCL 2 MG/2 ML SINGLE DOSE VIAL ONE (10:25)
[2023-11-10] MEDS ORDERED: PROPOFOL 20 ML ONE (10:30)
[2023-11-10] MEDS ORDERED: SUCCINYLCHOLINE CHLORIDE 200 MG/10 ML SYRINGE ONE (10:31)
[2023-11-10] MEDS ORDERED: ceFAZolin SODIUM 1 GM VIAL IVPB ONE (10:50)
[2023-11-10] MEDS ORDERED: LIDOCAINE HCL 1%, 10 MG/ML (20ML VIAL) INF ONE (10:59)
[2023-11-10] MEDS ORDERED: POVIDONE-IODINE OINTMENT 10% - 28.4 GM TUBE TP ONE (11:59)
[2023-11-10] MEDS ORDERED: PROMETHAZINE HCL 25 MG/1 ML VIAL IVPB PRN (12:46)
[2023-11-10] MEDS ORDERED: ONDANSETRON 4 MG/2 ML VIAL IVPUSH PRN (12:46)
[2023-11-10] MEDS ORDERED: DEXTROSE 5%-NORMAL SALINE 1,000 ML IV SCH (13:00)
[2023-11-10 15:05] VITALS: RESP 20; TEMP 97
[2023-11-10 15:07] VITALS: BP 92/48; PULSE 62
== END 2023-11-10 14:53 | disposition home or self-care (01) ==
LOC: JASU-SURG 05:13
PROVIDERS: ATTEND Surgery
PROC: 03170ZD Bypass Right Brachial Artery to Upper Arm Vein, Open Approach (ICD-10-PCS; principal; 2023-11-10 10:30)
DX: I13.11 Hypertensive heart and chronic kidney disease without heart failure, with stage 5 chronic kidney disease, or end stage renal disease (principal); E11.22 Type 2 diabetes mellitus with diabetic chronic kidney disease; N18.6 End stage renal disease
CPT/HCPCS: 82962; 94760; J1644

== ENCOUNTER 2024-01-04 12:05 | Inpatient (IN) | payer OTHER ==
[2024-01-04 14:01] LABS: BASO % 0.3 % (0-2.0); EOS % 0.9 % (0-4.5); HEMOGLOBIN 10.5 GM/dL (11.7-16.9); LYMPH % 8.3 % (8-40); MCH 34.4 pg (25.7-33.7); MCHC 32.8 g/dl (32.0-35.9); MEAN PLT VOLUME 6.9 fl (7.5-11.1); MONO % 12.3 % (3.8-10.2); NEUT % 78.2 % (42.8-82.8); PLATELET COUNT 158 10^3/uL (134-434); RBC 3.05 M/mm3 (4.00-5.60); RDW 18.2 % (11.9-15.9)
[2024-01-04 14:05] LABS: INR 1.31 (0.83-1.09); PROTHROMBIN TIME (PATIENT) 15.1 SEC (9.7-13.0)
[2024-01-04 14:08] LABS: ACTIVATED PTT 29.7 SECONDS (25.2-36.5)
[2024-01-04] MEDS ORDERED: LIDOCAINE HCL 2% (20ML MULTI-DOSE VIAL) ONE (14:13)
[2024-01-04 14:20] LABS: CHLORIDE 106 mmol/L (98-107); POTASSIUM 5.4 mmol/L (3.5-5.1); SODIUM 138 mmol/L (136-145)
[2024-01-04 14:23] LABS: CALCIUM 8.1 mg/dL (8.5-10.1)
[2024-01-04 14:24] LABS: ALBUMIN 3.2 g/dl (3.4-5.0); ANION GAP 8 mmol/L (4-13); BLOOD UREA NITROGEN 55.6 mg/dL (7-18); CO2 24 mmol/L (21-32)
[2024-01-04 14:25] LABS: ANISOCYTOSIS 0; MACROCYTOSIS 1+
[2024-01-04 14:27] LABS: SGOT/AST 22 U/L (15-37); SGPT/ALT 9 U/L (13-61)
[2024-01-04 14:29] LABS: BILIRUBIN,TOTAL 0.6 mg/dL (0.2-1); TOT PROT 6.8 g/dl (6.4-8.2)
[2024-01-04 14:30] LABS: ALK PHOS 94 U/L (45-117)
[2024-01-04 14:32] LABS: CREATININE 9.4 mg/dL (0.55-1.3); GLUCOSE,RANDOM 57 mg/dL (74-106)
[2024-01-04 15:26] LABS: CHLORIDE 106 mmol/L (98-107); POTASSIUM 4.6 mmol/L (3.5-5.1); SODIUM 141 mmol/L (136-145)
[2024-01-04 15:27] LABS: ANION GAP 11 mmol/L (4-13); CALCIUM 8.5 mg/dL (8.5-10.1); CO2 23 mmol/L (21-32); GLUCOSE,RANDOM 93 mg/dL (74-106)
[2024-01-04 15:28] LABS: BLOOD UREA NITROGEN 57.6 mg/dL (7-18)
[2024-01-04 15:40] LABS: CREATININE 9.3 mg/dL (0.55-1.3)
[2024-01-04] MEDS: INSULIN ASPART SLIDING SCALE (NOVOLOG) 1 VIAL SQ SCH (21:07)
[2024-01-04] MEDS ORDERED: SEVELAMER CARBONATE 800 MG TAB (FP) ONE (21:12)
[2024-01-04] MEDS ORDERED: glipiZIDE 5 MG TABLET (FP) ONE (21:12)
[2024-01-04] MEDS ORDERED: ATORVASTATIN CA 20 MG TABLET (FP) ONE (21:12)
[2024-01-04] MEDS: SEVELAMER CARBONATE 800 MG TAB (FP) PO SCH (21:14)
[2024-01-04] MEDS: ATORVASTATIN CA 20 MG TABLET (FP) PO SCH (21:14)
[2024-01-05 02:57] VITALS: BMI 28.1
[2024-01-05] MEDS ORDERED: INSULIN (NOVOLOG) ASPART 100 UNITS/ML 10ML VIAL ONE ×2 (06:14→18:01)
[2024-01-05] MEDS: SODIUM CHLORIDE 250 ML IV STA ×2 (06:20→07:26)
[2024-01-05] MEDS: glipiZIDE 5 MG TABLET (FP) PO SCH (08:49)
[2024-01-05 09:02] LABS: BASO % 0.3 % (0-2.0); EOS % 0.6 % (0-4.5); HEMATOCRIT 29.1 % (35.4-49); HEMOGLOBIN 9.8 GM/dL (11.7-16.9); LYMPH % 9.4 % (8-40); MCH 35.5 pg (25.7-33.7); MCHC 33.5 g/dl (32.0-35.9); MEAN CELL VOLUME 105.8 fl (80-96); MEAN PLT VOLUME 6.9 fl (7.5-11.1); MONO % 10.9 % (3.8-10.2); NEUT % 78.8 % (42.8-82.8); PLATELET COUNT 130 10^3/uL (134-434); RBC 2.75 M/mm3 (4.00-5.60); RDW 18.3 % (11.9-15.9); WHITE BLOOD COUNT 9.1 K/mm3 (4.0-10.0)
[2024-01-05 09:14] LABS: CHLORIDE 106 mmol/L (98-107); POTASSIUM 5.1 mmol/L (3.5-5.1); SODIUM 140 mmol/L (136-145)
[2024-01-05 09:16] LABS: CALCIUM 8.5 mg/dL (8.5-10.1)
[2024-01-05 09:17] LABS: ANION GAP 11 mmol/L (4-13); BLOOD UREA NITROGEN 70.1 mg/dL (7-18); CO2 23 mmol/L (21-32); GLUCOSE,RANDOM 134 mg/dL (74-106)
[2024-01-05 09:20] LABS: SGOT/AST 10 U/L (15-37); SGPT/ALT 7 U/L (13-61)
[2024-01-05 09:21] LABS: BILIRUBIN,TOTAL 0.4 mg/dL (0.2-1); TOT PROT 6.6 g/dl (6.4-8.2)
[2024-01-05 09:23] LABS: ALK PHOS 86 U/L (45-117)
[2024-01-05 09:25] LABS: CREATININE 10.6 mg/dL (0.55-1.3)
[2024-01-05] MEDS: CINACALCET HCL 30 MG TAB (FP) PO SCH (10:17)
[2024-01-05] MEDS: DUTASTERIDE 0.5 MG CAP (FP) PO SCH (11:20)
[2024-01-05] MEDS ORDERED: SODIUM CHLORIDE 250 ML IV PRN ×2 (12:00→16:25)
[2024-01-05] MEDS: SEVELAMER CARBONATE 800 MG TAB (FP) PO SCH (12:23)
[2024-01-05] MEDS: EPOETIN ALFA-EPBX 4,000 UNIT/ML VIAL IVPUSH ONE (14:55)
[2024-01-06] MEDS ORDERED: INSULIN (NOVOLOG) ASPART 100 UNITS/ML 10ML VIAL ONE (07:16)
[2024-01-06] MEDS: MIDODRINE HCL 5 MG TABLET PO SCH (12:43)
[2024-01-06 13:41] LABS: HEMATOCRIT 26.9 % (35.4-49); MCH 35.5 pg (25.7-33.7); MCHC 33.7 g/dl (32.0-35.9); MEAN CELL VOLUME 105.4 fl (80-96); MEAN PLT VOLUME 7.1 fl (7.5-11.1); PLATELET COUNT 140 10^3/uL (134-434); RBC 2.55 M/mm3 (4.00-5.60); RDW 18.1 % (11.9-15.9); WHITE BLOOD COUNT 9.1 K/mm3 (4.0-10.0)
[2024-01-06 14:00] LABS: POTASSIUM 3.8 mmol/L (3.5-5.1)
[2024-01-06 14:03] LABS: CALCIUM 8.4 mg/dL (8.5-10.1)
[2024-01-06 14:04] LABS: ALBUMIN 2.9 g/dl (3.4-5.0)
[2024-01-06 14:08] LABS: BILIRUBIN,TOTAL 0.6 mg/dL (0.2-1); TOT PROT 6.4 g/dl (6.4-8.2)
[2024-01-06] MEDS: EPOETIN ALFA-EPBX 10,000 UNIT/ML VIAL IVPUSH ONE (14:35)
[2024-01-07 09:22] VITALS: RESP 18
[2024-01-07] MEDS: APIXABAN 5 MG TABLET PO SCH (21:11)
[2024-01-08] MEDS ORDERED: SODIUM CHLORIDE 250 ML IV PRN (12:18)
[2024-01-08 14:25] VITALS: BP 131/84; PULSE 106; TEMP 98.2
[2024-01-09] MEDS ORDERED: EPOETIN ALFA-EPBX 10,000 UNIT/ML VIAL SQ ONE (12:18)
== END 2024-01-08 17:28 | disposition home or self-care (01) | DRG 314 ==
LOC: JER 12:05 → JERBED 15:39 → OBSVTOIN 20:35 → J8W 01-05 01:59
PROVIDERS: ADMIT Internal Medicine; ATTEND Internal Medicine
DX: T82.838A Hemorrhage due to vascular prosthetic devices, implants and grafts, initial encounter (principal); N18.6 End stage renal disease; I12.0 Hypertensive chronic kidney disease with stage 5 chronic kidney disease or end stage renal disease; I25.10 Atherosclerotic heart disease of native coronary artery without angina pectoris; I95.9 Hypotension, unspecified; I48.0 Paroxysmal atrial fibrillation; Y83.9 Surgical procedure, unspecified as the cause of abnormal reaction of the patient, or of later complication, without mention of misadventure at the time of the procedure; E78.5 Hyperlipidemia, unspecified; N40.0 Benign prostatic hyperplasia without lower urinary tract symptoms; E11.9 Type 2 diabetes mellitus without complications
CPT/HCPCS: 36415; 80048; 80053; 82962; 84132; 85025; 85027; 85610; 85730; 86704; 86803; 86850; 86900; 86901; 87340; 87517; 93005; 93010; 94760; 99285-25; G0378; J1644; J2597; Q5106

== ENCOUNTER 2024-07-11 15:12 | Inpatient (IN) | payer OTHER ==
[2024-07-11 17:03] LABS: BASO % 0.4 % (0-2.0); EOS % 2.3 % (0-4.5); HEMATOCRIT 39.7 % (35.4-49); HEMOGLOBIN 13.4 GM/dL (11.7-16.9); LYMPH % 7.6 % (8-40); MCH 35.6 pg (25.7-33.7); MCHC 33.9 g/dl (32.0-35.9); MEAN CELL VOLUME 105.1 fl (80-96); NEUT % 81.7 % (42.8-82.8); PLATELET COUNT 128 10^3/uL (134-434); RBC 3.77 M/mm3 (4.00-5.60); RDW 19.1 % (11.9-15.9); WHITE BLOOD COUNT 12.2 K/mm3 (4.0-10.0)
[2024-07-11 17:12] LABS: INR 1.22 (0.83-1.09); PROTHROMBIN TIME (PATIENT) 13.7 SEC (9.7-13.0)
[2024-07-11 17:15] LABS: ACTIVATED PTT 34.4 SECONDS (25.2-36.5)
[2024-07-11 17:29] LABS: CHLORIDE 99 mmol/L (98-107); SODIUM 131 mmol/L (136-145)
[2024-07-11 17:31] LABS: POTASSIUM 6.4 mmol/L (3.5-5.1)
[2024-07-11 17:32] LABS: ALBUMIN 3.8 g/dl (3.4-5.0); ANION GAP 10 mmol/L (4-13); BLOOD UREA NITROGEN 70.4 mg/dL (7-18); CO2 21 mmol/L (21-32); GLUCOSE,RANDOM 181 mg/dL (74-106); MAGNESIUM 2.7 mg/dL (1.8-2.4)
[2024-07-11 17:35] LABS: PHOSPHOROUS 5.2 mg/dL (2.5-4.9); SGOT/AST 28 U/L (15-37); SGPT/ALT 16 U/L (13-61)
[2024-07-11 17:36] LABS: BILIRUBIN,TOTAL 0.6 mg/dL (0.2-1); CREATININE 11.6 mg/dL (0.55-1.3)
[2024-07-11 17:37] LABS: TOT PROT 8.5 g/dl (6.4-8.2)
[2024-07-11 17:38] LABS: ALK PHOS 137 U/L (45-117)
[2024-07-11 18:16] LABS: CHLORIDE 100 mmol/L (98-107); SODIUM 133 mmol/L (136-145)
[2024-07-11 18:17] LABS: CALCIUM 8.9 mg/dL (8.5-10.1)
[2024-07-11 18:18] LABS: CO2 19 mmol/L (21-32); GLUCOSE,RANDOM 179 mg/dL (74-106)
[2024-07-11 18:28] LABS: ANION GAP 14 mmol/L (4-13); CREATININE 11.4 mg/dL (0.55-1.3); POTASSIUM 6.2 mmol/L (3.5-5.1)
[2024-07-11 19:33] LABS: ANISOCYTOSIS 1+; MACROCYTOSIS 1+
[2024-07-11 19:47] LABS: CHLORIDE 102 mmol/L (98-107); SODIUM 131 mmol/L (136-145)
[2024-07-11 19:49] LABS: CALCIUM 8.8 mg/dL (8.5-10.1); CO2 18 mmol/L (21-32); GLUCOSE,RANDOM 151 mg/dL (74-106)
[2024-07-11 19:56] LABS: ANION GAP 11 mmol/L (4-13); CREATININE 11.7 mg/dL (0.55-1.3); POTASSIUM 6.2 mmol/L (3.5-5.1)
[2024-07-11] MEDS ORDERED: SODIUM ZIRCONIUM CYCLOSILICATE (LOKELMA) 10 GM PACKET ONE (21:10)
[2024-07-11] MEDS ORDERED: INSULIN REGULAR HUMAN 100 UNITS/ML *VIAL ONE (21:12)
[2024-07-11] MEDS ORDERED: DEXTROSE 50%-WATER 25 GM/50 ML DISP.SYRIN ONE (21:13)
[2024-07-11] MEDS: SODIUM ZIRCONIUM CYCLOSILICATE (LOKELMA) 5 GM PACKET PO ONE (21:28)
[2024-07-11] MEDS: INSULIN REGULAR HUMAN 100 UNITS/ML *VIAL SQ ONE (21:28)
[2024-07-11] MEDS: DEXTROSE 50%-WATER - 25 GM/50 ML VIAL IVPUSH ONE (21:28)
[2024-07-11] MEDS ORDERED: ACETAMINOPHEN 325 MG TABLET (FP) PO PRN (22:01)
[2024-07-11] MEDS ORDERED: DOCUSATE SODIUM 100 MG CAPSULE (FP) PO PRN (22:01)
[2024-07-12 00:33] VITALS: BMI 27.1
[2024-07-12 01:34] LABS: CHLORIDE 101 mmol/L (98-107); POTASSIUM 5.9 mmol/L (3.5-5.1); SODIUM 133 mmol/L (136-145)
[2024-07-12 01:35] LABS: ANION GAP 12 mmol/L (4-13); BLOOD UREA NITROGEN 76.9 mg/dL (7-18); CALCIUM 8.4 mg/dL (8.5-10.1); CO2 20 mmol/L (21-32)
[2024-07-12 01:36] LABS: GLUCOSE,RANDOM 231 mg/dL (74-106)
[2024-07-12 02:03] LABS: CREATININE 12.4 mg/dL (0.55-1.3)
[2024-07-12] MEDS ORDERED: MAGNESIUM CITRATE 300 ML BOTTLE PO PRN ×2 (05:22→18:58)
[2024-07-12] MEDS: INSULIN ASPART SLIDING SCALE (NOVOLOG) 1 VIAL SQ SCH ×2 (06:19→21:29)
[2024-07-12] MEDS ORDERED: SODIUM CHLORIDE 250 ML IV PRN ×2 (07:58→18:58)
[2024-07-12 08:17] LABS: BASO % 0.6 % (0-2.0); EOS % 3.4 % (0-4.5); HEMATOCRIT 35.1 % (35.4-49); HEMOGLOBIN 11.7 GM/dL (11.7-16.9); LYMPH % 9.6 % (8-40); MCH 35.6 pg (25.7-33.7); MCHC 33.5 g/dl (32.0-35.9); MEAN CELL VOLUME 106.3 fl (80-96); MONO % 10.6 % (3.8-10.2); NEUT % 75.8 % (42.8-82.8); PLATELET COUNT 120 10^3/uL (134-434); RDW 18.4 % (11.9-15.9); WHITE BLOOD COUNT 11.8 K/mm3 (4.0-10.0)
[2024-07-12] MEDS: SEVELAMER CARBONATE 800 MG TAB (FP) PO SCH (08:22)
[2024-07-12 08:44] LABS: CHLORIDE 104 mmol/L (98-107); POTASSIUM 5.8 mmol/L (3.5-5.1); SODIUM 135 mmol/L (136-145)
[2024-07-12 08:45] LABS: BLOOD UREA NITROGEN 83.1 mg/dL (7-18); CALCIUM 8.7 mg/dL (8.5-10.1)
[2024-07-12 08:46] LABS: ANION GAP 13 mmol/L (4-13); CO2 18 mmol/L (21-32); GLUCOSE,RANDOM 110 mg/dL (74-106)
[2024-07-12 08:56] LABS: CREATININE 12.8 mg/dL (0.55-1.3)
[2024-07-12] MEDS: CINACALCET HCL 30 MG TAB (FP) PO SCH (10:46)
[2024-07-12] MEDS: APIXABAN 5 MG TABLET PO SCH (10:46)
[2024-07-12] MEDS: DUTASTERIDE 0.5 MG CAP (FP) PO SCH (10:46)
[2024-07-12] MEDS ORDERED: HEPARIN NA (PORCINE) 5,000 UNITS/ML 1ML VIAL ONE ×2 (14:38→18:31)
[2024-07-12] MEDS ORDERED: MIDAZOLAM HCL 2 MG/2 ML SINGLE DOSE VIAL ONE (17:25)
[2024-07-12] MEDS: ceFAZolin SODIUM 1 GM VIAL IVPB ONE (17:50)
[2024-07-12] MEDS ORDERED: ceFAZolin SODIUM 1 GM VIAL ONE (18:31)
[2024-07-12] MEDS ORDERED: ONDANSETRON 4 MG/2 ML VIAL ONE (18:31)
[2024-07-12] MEDS ORDERED: ePHEDrine SULFATE 50 MG/1 ML AMPULE ONE (18:40)
[2024-07-12] MEDS ORDERED: ONDANSETRON 4 MG/2 ML VIAL IVPUSH PRN (18:52)
[2024-07-12] MEDS ORDERED: ACETAMINOPHEN 325 MG TABLET (FP) PO PRN (18:58)
[2024-07-12] MEDS: SODIUM CHLORIDE 1,000 ML IV SCH (21:01)
[2024-07-12] MEDS ORDERED: INSULIN ASPART SLIDING SCALE (NOVOLOG) 1 VIAL SQ ONE (21:22)
[2024-07-12] MEDS: DOCUSATE SODIUM 100 MG CAPSULE (FP) PO SCH (21:25)
[2024-07-12] MEDS ORDERED: DOCUSATE SODIUM 100 MG CAPSULE (FP) PO SCH (22:00)
[2024-07-13] MEDS: SEVELAMER CARBONATE 800 MG TAB (FP) PO SCH (07:36)
[2024-07-13 08:49] LABS: BASO % 0.4 % (0-2.0); HEMATOCRIT 34.5 % (35.4-49); HEMOGLOBIN 11.4 GM/dL (11.7-16.9); LYMPH % 8.1 % (8-40); MCH 35.7 pg (25.7-33.7); MCHC 33.2 g/dl (32.0-35.9); MEAN CELL VOLUME 107.6 fl (80-96); MONO % 11.5 % (3.8-10.2); PLATELET COUNT 140 10^3/uL (134-434); RDW 18.6 % (11.9-15.9)
[2024-07-13 08:57] LABS: CHLORIDE 105 mmol/L (98-107); POTASSIUM 5.3 mmol/L (3.5-5.1); SODIUM 139 mmol/L (136-145)
[2024-07-13 08:59] LABS: CALCIUM 9.2 mg/dL (8.5-10.1)
[2024-07-13 09:00] LABS: ALBUMIN 3.3 g/dl (3.4-5.0); ANION GAP 11 mmol/L (4-13); CO2 22 mmol/L (21-32); GLUCOSE,RANDOM 148 mg/dL (74-106)
[2024-07-13 09:03] LABS: SGOT/AST 15 U/L (15-37)
[2024-07-13 09:04] LABS: BILIRUBIN,TOTAL 0.7 mg/dL (0.2-1); TOT PROT 6.8 g/dl (6.4-8.2)
[2024-07-13 09:06] LABS: ALK PHOS 101 U/L (45-117); CREATININE 8.3 mg/dL (0.55-1.3)
[2024-07-13 09:15] LABS: SGPT/ALT 12 U/L (13-61)
[2024-07-13] MEDS: DUTASTERIDE 0.5 MG CAP (FP) PO SCH (09:33)
[2024-07-13] MEDS: CINACALCET HCL 30 MG TAB (FP) PO SCH (09:33)
[2024-07-13] MEDS: APIXABAN 5 MG TABLET PO SCH (22:20)
[2024-07-13] MEDS: MIDODRINE HCL 5 MG TABLET PO SCH (23:06)
[2024-07-14 09:35] LABS: BASO % 0.4 % (0-2.0); HEMATOCRIT 30.8 % (35.4-49); HEMOGLOBIN 10.4 GM/dL (11.7-16.9); LYMPH % 6.9 % (8-40); MCH 35.9 pg (25.7-33.7); MCHC 33.8 g/dl (32.0-35.9); MEAN CELL VOLUME 106.3 fl (80-96); MEAN PLT VOLUME 6.2 fl (7.5-11.1); NEUT % 78.7 % (42.8-82.8); PLATELET COUNT 105 10^3/uL (134-434); RDW 18.9 % (11.9-15.9); WHITE BLOOD COUNT 10.5 K/mm3 (4.0-10.0)
[2024-07-14] MEDS: metoPROLOL SUCCINATE 25 MG TAB.SR.24H (FP) PO SCH (09:44)
[2024-07-14 09:51] LABS: CHLORIDE 105 mmol/L (98-107); POTASSIUM 5.1 mmol/L (3.5-5.1); SODIUM 139 mmol/L (136-145)
[2024-07-14 10:03] LABS: ANION GAP 13 mmol/L (4-13); CO2 22 mmol/L (21-32); GLUCOSE,RANDOM 116 mg/dL (74-106)
[2024-07-14 10:05] LABS: BILIRUBIN,TOTAL 0.7 mg/dL (0.2-1)
[2024-07-14 10:06] LABS: SGOT/AST 12 U/L (15-37); SGPT/ALT 7 U/L (13-61)
[2024-07-14 10:07] LABS: TOT PROT 6.1 g/dl (6.4-8.2)
[2024-07-14 10:08] LABS: CALCIUM 8.6 mg/dL (8.5-10.1); CREATININE 9.7 mg/dL (0.55-1.3)
[2024-07-14 10:12] LABS: ALK PHOS 86 U/L (45-117)
[2024-07-14] MEDS ORDERED: SODIUM CHLORIDE 250 ML IV PRN (11:33)
[2024-07-15] MEDS: EPOETIN ALFA-EPBX 3,000 UNIT/ML VIAL IVPUSH ONE (14:37)
[2024-07-16 05:12] VITALS: TEMP 98.4
[2024-07-16 08:00] LABS: BASO % 0.3 % (0-2.0); EOS % 3.3 % (0-4.5); HEMOGLOBIN 9.4 GM/dL (11.7-16.9); MCH 36.3 pg (25.7-33.7); MCHC 33.6 g/dl (32.0-35.9); MEAN CELL VOLUME 107.9 fl (80-96); MEAN PLT VOLUME 6.6 fl (7.5-11.1); MONO % 13.3 % (3.8-10.2); NEUT % 76.1 % (42.8-82.8); PLATELET COUNT 112 10^3/uL (134-434); RBC 2.59 M/mm3 (4.00-5.60); RDW 17.6 % (11.9-15.9)
[2024-07-16 08:08] LABS: CHLORIDE 103 mmol/L (98-107); POTASSIUM 4.3 mmol/L (3.5-5.1); SODIUM 139 mmol/L (136-145)
[2024-07-16 08:17] LABS: CALCIUM 8.1 mg/dL (8.5-10.1)
[2024-07-16 08:18] LABS: ALBUMIN 2.8 g/dl (3.4-5.0); ANION GAP 8 mmol/L (4-13); BLOOD UREA NITROGEN 30.9 mg/dL (7-18); CO2 28 mmol/L (21-32); GLUCOSE,RANDOM 102 mg/dL (74-106)
[2024-07-16 08:21] LABS: CREATININE 6.4 mg/dL (0.55-1.3); SGOT/AST 14 U/L (15-37); SGPT/ALT < 6 U/L (13-61)
[2024-07-16 08:22] LABS: BILIRUBIN,TOTAL 0.5 mg/dL (0.2-1); TOT PROT 5.7 g/dl (6.4-8.2)
[2024-07-16 08:24] LABS: ALK PHOS 82 U/L (45-117)
[2024-07-16 10:06] LABS: ANISOCYTOSIS 1+; MACROCYTOSIS 1+
[2024-07-16 10:36] VITALS: BP 95/80; PULSE 100; RESP 16
[2024-07-16 13:35] LABS: CHOLESTEROL 93 mg/dL (50-200)
[2024-07-16 13:36] LABS: LDL CHOLESTEROL (ONLY SJRH) 40 mg/dL (5-100)
[2024-07-16 13:38] LABS: HDL CHOLESTEROL 46 mg/dL (40-60)
== END 2024-07-16 14:33 | disposition home or self-care (01) | DRG 252 ==
LOC: JER 15:12 → JERBED 21:31 → J4W 07-12 00:02
PROVIDERS: ADMIT Internal Medicine; ATTEND Internal Medicine
PROC: 06HM3DZ Insertion of Intraluminal Device into Right Femoral Vein, Percutaneous Approach (ICD-10-PCS; 2024-07-12)
PROC: 05CY3ZZ Extirpation of Matter from Upper Vein, Percutaneous Approach (ICD-10-PCS; principal; 2024-07-12 17:30)
PROC: 5A1D70Z Performance of Urinary Filtration, Intermittent, Less than 6 Hours Per Day (ICD-10-PCS; 2024-07-15)
DX: T82.868A Thrombosis due to vascular prosthetic devices, implants and grafts, initial encounter (principal); N18.6 End stage renal disease; I12.0 Hypertensive chronic kidney disease with stage 5 chronic kidney disease or end stage renal disease; I47.29 Other ventricular tachycardia; E87.5 Hyperkalemia; I48.91 Unspecified atrial fibrillation; I25.10 Atherosclerotic heart disease of native coronary artery without angina pectoris; E11.22 Type 2 diabetes mellitus with diabetic chronic kidney disease; E78.5 Hyperlipidemia, unspecified; N40.0 Benign prostatic hyperplasia without lower urinary tract symptoms; D63.1 Anemia in chronic kidney disease; Y83.9 Surgical procedure, unspecified as the cause of abnormal reaction of the patient, or of later complication, without mention of misadventure at the time of the procedure
CPT/HCPCS: 36415; 76000-TC-FY; 80048; 80053; 80061; 82962; 83036; 83735; 84100; 84443; 85025; 85610; 85730; 86803; 86850; 86900; 86901; 87340; 93005; 93010; 93306-TC; 93931; 94760; 99285-25; C1757; J1644; Q5106

== ENCOUNTER 2024-10-26 13:03 | Inpatient (IN) | payer OTHER ==
[2024-10-26 13:36] VITALS: BMI 16.9
[2024-10-26 14:04] LABS: BASO % 0.3 % (0-2.0); EOS % 1.7 % (0-4.5); HEMATOCRIT 40.4 % (35.4-49); LYMPH % 6.2 % (8-40); MCH 33.8 pg (25.7-33.7); MCHC 32.1 g/dl (32.0-35.9); MEAN CELL VOLUME 105.2 fl (80-96); MEAN PLT VOLUME 7.2 fl (7.5-11.1); MONO % 7.8 % (3.8-10.2); PLATELET COUNT 137 10^3/uL (134-434); RBC 3.84 M/mm3 (4.00-5.60); RDW 18.6 % (11.9-15.9); WHITE BLOOD COUNT 14.9 K/mm3 (4.0-10.0)
[2024-10-26 14:05] LABS: CHLORIDE 104 mmol/L (98-107); POTASSIUM 5.6 mmol/L (3.5-5.1); SODIUM 137 mmol/L (136-145)
[2024-10-26 14:07] LABS: ANION GAP 8 mmol/L (4-13); BLOOD UREA NITROGEN 58.9 mg/dL (7-18); CALCIUM 9.1 mg/dL (8.5-10.1); CO2 25 mmol/L (21-32); GLUCOSE,RANDOM 161 mg/dL (74-106)
[2024-10-26 14:08] LABS: MAGNESIUM 2.5 mg/dL (1.8-2.4)
[2024-10-26 14:10] LABS: SGOT/AST 14 U/L (15-37); SGPT/ALT 13 U/L (13-61)
[2024-10-26 14:11] LABS: PHOSPHOROUS 4.9 mg/dL (2.5-4.9)
[2024-10-26 14:12] LABS: ALBUMIN 3.4 g/dl (3.4-5.0); BILIRUBIN,TOTAL 0.4 mg/dL (0.2-1); CREATININE 10.2 mg/dL (0.55-1.3); INR 1.33 (0.83-1.09); PROTHROMBIN TIME (PATIENT) 14.9 SEC (9.7-13.0); TOT PROT 7.2 g/dl (6.4-8.2)
[2024-10-26 14:13] LABS: ALK PHOS 112 U/L (45-117)
[2024-10-26 14:15] LABS: ACTIVATED PTT 32.1 SECONDS (25.2-36.5)
[2024-10-26 14:53] LABS: CHLORIDE 106 mmol/L (98-107); POTASSIUM 4.8 mmol/L (3.5-5.1); SODIUM 138 mmol/L (136-145)
[2024-10-26 14:54] LABS: CALCIUM 8.9 mg/dL (8.5-10.1)
[2024-10-26 14:55] LABS: ANION GAP 8 mmol/L (4-13); BLOOD UREA NITROGEN 55.2 mg/dL (7-18); CO2 24 mmol/L (21-32); GLUCOSE,RANDOM 135 mg/dL (74-106); MAGNESIUM 2.5 mg/dL (1.8-2.4)
[2024-10-26 14:57] LABS: ANISOCYTOSIS 2+; MACROCYTOSIS 2+; OVALOCYTE 1+
[2024-10-26 14:58] LABS: PHOSPHOROUS 4.9 mg/dL (2.5-4.9)
[2024-10-26 15:49] LABS: HIV INTERPRETATION NEGATIVE (NEGATIVE)
[2024-10-26] MEDS ORDERED: SODIUM ZIRCONIUM CYCLOSILICATE (LOKELMA) 10 GM PACKET ONE (16:49)
[2024-10-26] MEDS: SODIUM ZIRCONIUM CYCLOSILICATE (LOKELMA) 5 GM PACKET PO SCH (17:01)
[2024-10-26] MEDS: ATORVASTATIN CA 20 MG TABLET (FP) PO SCH (21:11)
[2024-10-26] MEDS: APIXABAN 5 MG TABLET PO SCH (21:12)
[2024-10-26] MEDS: DOCUSATE SODIUM 100 MG CAPSULE (FP) PO SCH (21:12)
[2024-10-26] MEDS: INSULIN ASPART SLIDING SCALE (NOVOLOG) 1 VIAL SQ SCH (21:21)
[2024-10-27] MEDS: glipiZIDE 5 MG TABLET (FP) PO SCH (06:22)
[2024-10-27 08:59] LABS: BASO % 0.6 % (0-2.0); EOS % 2.7 % (0-4.5); HEMATOCRIT 41.5 % (35.4-49); HEMOGLOBIN 13.5 GM/dL (11.7-16.9); LYMPH % 13.5 % (8-40); MCH 33.9 pg (25.7-33.7); MCHC 32.6 g/dl (32.0-35.9); MEAN PLT VOLUME 6.9 fl (7.5-11.1); MONO % 6.2 % (3.8-10.2); PLATELET COUNT 138 10^3/uL (134-434); RBC 3.99 M/mm3 (4.00-5.60); RDW 18.3 % (11.9-15.9); WHITE BLOOD COUNT 11.4 K/mm3 (4.0-10.0)
[2024-10-27 09:23] LABS: CHLORIDE 103 mmol/L (98-107); POTASSIUM 5.5 mmol/L (3.5-5.1); SODIUM 136 mmol/L (136-145)
[2024-10-27] MEDS: SEVELAMER CARBONATE 800 MG TAB (FP) PO SCH (09:24)
[2024-10-27] MEDS: metoPROLOL SUCCINATE 25 MG TAB.SR.24H (FP) PO SCH (09:24)
[2024-10-27] MEDS: DUTASTERIDE 0.5 MG CAP (FP) PO SCH (09:25)
[2024-10-27] MEDS: MIDODRINE HCL 5 MG TABLET PO SCH (09:25)
[2024-10-27] MEDS: CINACALCET HCL 30 MG TAB (FP) PO SCH (09:25)
[2024-10-27 09:28] LABS: CALCIUM 9.2 mg/dL (8.5-10.1)
[2024-10-27 09:29] LABS: ALBUMIN 3.6 g/dl (3.4-5.0); ANION GAP 11 mmol/L (4-13); BLOOD UREA NITROGEN 69.2 mg/dL (7-18); CO2 21 mmol/L (21-32); GLUCOSE,RANDOM 82 mg/dL (74-106)
[2024-10-27 09:32] LABS: SGOT/AST 8 U/L (15-37); SGPT/ALT 10 U/L (13-61)
[2024-10-27 09:34] LABS: BILIRUBIN,TOTAL 0.5 mg/dL (0.2-1); TOT PROT 7.4 g/dl (6.4-8.2)
[2024-10-27 09:35] LABS: ALK PHOS 113 U/L (45-117); CREATININE 11.4 mg/dL (0.55-1.3)
[2024-10-27] MEDS ORDERED: SODIUM CHLORIDE 250 ML IV PRN (16:27)
[2024-10-27] MEDS: SODIUM ZIRCONIUM CYCLOSILICATE (LOKELMA) 5 GM PACKET PO SCH (21:00)
[2024-10-28 07:52] LABS: HEMATOCRIT 38.4 % (35.4-49); HEMOGLOBIN 12.4 GM/dL (11.7-16.9); MCH 33.5 pg (25.7-33.7); MCHC 32.2 g/dl (32.0-35.9); MEAN PLT VOLUME 7.3 fl (7.5-11.1); PLATELET COUNT 165 10^3/uL (134-434); RBC 3.69 M/mm3 (4.00-5.60); RDW 18.3 % (11.9-15.9); WHITE BLOOD COUNT 14.3 K/mm3 (4.0-10.0)
[2024-10-28 07:53] LABS: BASO % 0.3 % (0-2.0); EOS % 1.4 % (0-4.5); HEMATOCRIT 38.6 % (35.4-49); HEMOGLOBIN 12.4 GM/dL (11.7-16.9); LYMPH % 7.9 % (8-40); MCH 33.5 pg (25.7-33.7); MCHC 32.2 g/dl (32.0-35.9); MEAN CELL VOLUME 103.9 fl (80-96); MEAN PLT VOLUME 6.9 fl (7.5-11.1); MONO % 10.4 % (3.8-10.2); PLATELET COUNT 155 10^3/uL (134-434); RBC 3.72 M/mm3 (4.00-5.60); RDW 18.5 % (11.9-15.9); WHITE BLOOD COUNT 14.7 K/mm3 (4.0-10.0)
[2024-10-28 08:04] LABS: CHLORIDE 100 mmol/L (98-107); POTASSIUM 5.5 mmol/L (3.5-5.1); SODIUM 132 mmol/L (136-145)
[2024-10-28 08:06] LABS: CHLORIDE 100 mmol/L (98-107); POTASSIUM 5.5 mmol/L (3.5-5.1); SODIUM 132 mmol/L (136-145)
[2024-10-28 08:09] LABS: CALCIUM 8.9 mg/dL (8.5-10.1)
[2024-10-28 08:10] LABS: ALBUMIN 3.4 g/dl (3.4-5.0); ANION GAP 14 mmol/L (4-13); CO2 18 mmol/L (21-32); GLUCOSE,RANDOM 132 mg/dL (74-106)
[2024-10-28 08:13] LABS: SGOT/AST 13 U/L (15-37)
[2024-10-28 08:15] LABS: BILIRUBIN,TOTAL 0.5 mg/dL (0.2-1); TOT PROT 6.8 g/dl (6.4-8.2)
[2024-10-28 08:16] LABS: ALK PHOS 105 U/L (45-117); SGPT/ALT 13 U/L (13-61)
[2024-10-28 08:17] LABS: ANION GAP 13 mmol/L (4-13); BLOOD UREA NITROGEN 82.9 mg/dL (7-18); CALCIUM 8.7 mg/dL (8.5-10.1); CO2 18 mmol/L (21-32)
[2024-10-28 08:18] LABS: GLUCOSE,RANDOM 135 mg/dL (74-106)
[2024-10-28 08:19] LABS: CREATININE 12.3 mg/dL (0.55-1.3)
[2024-10-28 08:37] LABS: CREATININE 12.4 mg/dL (0.55-1.3)
[2024-10-28] MEDS ORDERED: MIDAZOLAM HCL 2 MG/2 ML SINGLE DOSE VIAL ONE ×2 (13:45→14:40)
[2024-10-28] MEDS ORDERED: LIDOCAINE HCL 1%, 10 MG/ML (20ML VIAL) ONE (14:08)
[2024-10-28] MEDS ORDERED: HEPARIN NA (PORCINE) 5,000 UNITS/ML 1ML VIAL ONE (14:08)
[2024-10-28] MEDS ORDERED: ONDANSETRON 4 MG/2 ML VIAL IVPUSH PRN ×2 (14:32→16:44)
[2024-10-28] MEDS ORDERED: PROPOFOL 20 ML ONE (14:40)
[2024-10-28] MEDS ORDERED: ceFAZolin SODIUM 1 GM VIAL ONE (14:40)
[2024-10-28] MEDS: ceFAZolin SODIUM 1 GM VIAL IVPB ONE (15:14)
[2024-10-28] MEDS ORDERED: HEPARIN NA (PORCINE) 5,000 UNITS/ML 1ML VIAL IVPUSH ONE (16:27)
[2024-10-28] MEDS ORDERED: SODIUM CHLORIDE 250 ML IV PRN (16:44)
[2024-10-28] MEDS: HEPARIN NA (PORCINE) 5,000 UNITS/ML 1ML VIAL IVPUSH ONE (17:55)
[2024-10-28] MEDS: MIDODRINE HCL 5 MG TABLET PO SCH (18:58)
[2024-10-28] MEDS: DOCUSATE SODIUM 100 MG CAPSULE (FP) PO SCH (21:57)
[2024-10-28] MEDS: APIXABAN 5 MG TABLET PO SCH (21:57)
[2024-10-28] MEDS: ATORVASTATIN CA 20 MG TABLET (FP) PO SCH (21:57)
[2024-10-28] MEDS: SODIUM ZIRCONIUM CYCLOSILICATE (LOKELMA) 5 GM PACKET PO SCH (21:57)
[2024-10-28] MEDS: INSULIN ASPART SLIDING SCALE (NOVOLOG) 1 VIAL SQ SCH (21:58)
[2024-10-29] MEDS: SEVELAMER CARBONATE 800 MG TAB (FP) PO SCH (09:05)
[2024-10-29] MEDS: DUTASTERIDE 0.5 MG CAP (FP) PO SCH (09:20)
[2024-10-29] MEDS: CINACALCET HCL 30 MG TAB (FP) PO SCH (09:21)
[2024-10-29 09:56] LABS: BASO % 0.4 % (0-2.0); EOS % 0.9 % (0-4.5); HEMATOCRIT 36.9 % (35.4-49); HEMOGLOBIN 12.5 GM/dL (11.7-16.9); LYMPH % 7.1 % (8-40); MCH 34.6 pg (25.7-33.7); MCHC 33.8 g/dl (32.0-35.9); MEAN CELL VOLUME 102.3 fl (80-96); MONO % 10.3 % (3.8-10.2); NEUT % 81.3 % (42.8-82.8); PLATELET COUNT 144 10^3/uL (134-434); RBC 3.61 M/mm3 (4.00-5.60); RDW 18.4 % (11.9-15.9)
[2024-10-29 10:18] LABS: CHLORIDE 100 mmol/L (98-107); POTASSIUM 4.9 mmol/L (3.5-5.1); SODIUM 136 mmol/L (136-145)
[2024-10-29] MEDS: metoPROLOL SUCCINATE 25 MG TAB.SR.24H (FP) PO SCH (10:21)
[2024-10-29 10:24] LABS: ALBUMIN 3.1 g/dl (3.4-5.0); ANION GAP 9 mmol/L (4-13); CALCIUM 8.7 mg/dL (8.5-10.1); CO2 27 mmol/L (21-32); GLUCOSE,RANDOM 213 mg/dL (74-106)
[2024-10-29 10:27] LABS: SGOT/AST 12 U/L (15-37); SGPT/ALT 10 U/L (13-61)
[2024-10-29 10:29] LABS: BILIRUBIN,TOTAL 0.4 mg/dL (0.2-1); CREATININE 8.1 mg/dL (0.55-1.3); TOT PROT 6.4 g/dl (6.4-8.2)
[2024-10-29 10:30] LABS: ALK PHOS 90 U/L (45-117)
[2024-10-29] MEDS ORDERED: MIDODRINE HCL 5 MG TABLET PO SCH (11:00)
[2024-10-29] MEDS: MIDODRINE HCL 5 MG TABLET PO SCH (11:55)
[2024-10-29 12:19] VITALS: BP 122/62; PULSE 83; RESP 14; TEMP 98.2
== END 2024-10-29 13:39 | disposition home or self-care (01) | DRG 252 ==
LOC: JER 13:03 → JERBED 15:15 → J6S 20:03
PROVIDERS: ADMIT Internal Medicine; ATTEND Internal Medicine
PROC: 5A1D70Z Performance of Urinary Filtration, Intermittent, Less than 6 Hours Per Day (ICD-10-PCS; 2024-10-28)
PROC: 05H Upper Veins, Insertion (ICD-10-PCS; principal; 2024-10-28 13:00)
DX: T82.868A Thrombosis due to vascular prosthetic devices, implants and grafts, initial encounter (principal); N18.6 End stage renal disease; I12.0 Hypertensive chronic kidney disease with stage 5 chronic kidney disease or end stage renal disease; Y83.8 Other surgical procedures as the cause of abnormal reaction of the patient, or of later complication, without mention of misadventure at the time of the procedure; D64.9 Anemia, unspecified; N40.0 Benign prostatic hyperplasia without lower urinary tract symptoms; E78.5 Hyperlipidemia, unspecified; I48.0 Paroxysmal atrial fibrillation; E11.22 Type 2 diabetes mellitus with diabetic chronic kidney disease; I25.10 Atherosclerotic heart disease of native coronary artery without angina pectoris; E87.5 Hyperkalemia; D63.1 Anemia in chronic kidney disease; K59.00 Constipation, unspecified; Z99.2 Dependence on renal dialysis
CPT/HCPCS: 36415; 71045-TC-FY; 76000-TC-FY; 80048; 80053; 82962; 83036; 83735; 84100; 85025; 85027; 85610; 85730; 86704; 86803; 86850; 86900; 86901; 87340; 87389; 87517; 93005; 93010; 94760; 99285-25; C1876; J1644

== ENCOUNTER 2025-02-27 06:49 | Inpatient (IN) | payer OTHER ==
[2025-02-27 07:00] VITALS: BMI 25.7
[2025-02-27] MEDS ORDERED: ACETAMINOPHEN INJECTION 100 ML ONE (07:28)
[2025-02-27 08:25] LABS: VENOUS O2 SATURATION 51.8 % (70-80); VENOUS PCO2 45.9 mmHg (38-52); VENOUS PH 7.241 (7.310-7.410)
[2025-02-27 08:29] LABS: ABSOLUTE IMMATURE GRANULOCYTES 0.06 x10^3/uL (0.0-0.031); BASOPHILS # 0.07 x10^3/uL (0.01-0.08); EOSINOPHIL % 1.7 % (0.8-7.0); EOSINOPHILS # 0.19 x10^3/uL (0.04-0.54); HEMATOCRIT 40.5 % (40.1-51.0); HEMOGLOBIN 12.4 g/dL (13.7-17.5); MCHC 30.6 g/dl (32.3-36.5); MEAN CELL VOLUME 113.1 fl (79.0-92.2); MEAN PLT VOLUME 10.9 fl (9.4-12.4); MONOCYTE # 0.99 x10^3/uL (0.30-0.82); MONOCYTE % 8.7 % (5.3-12.2); PLATELET COUNT 98 x10^3/uL (163-337); RDW 17.9 % (12.2-16.6)
[2025-02-27 08:43] LABS: INR 1.17 (0.83-1.09); PROTHROMBIN TIME (PATIENT) 12.7 SEC (9.7-13.0)
[2025-02-27 08:46] LABS: ACTIVATED PTT 27.5 SECONDS (25.2-36.5)
[2025-02-27] MEDS ORDERED: SODIUM CHLORIDE 250 ML IV PRN (08:58)
[2025-02-27] MEDS: ACETAMINOPHEN 1000 MG/100 ML BAG IVPB ONE (09:05)
[2025-02-27] MEDS: SODIUM CHLORIDE 0.9% 500 ML INFUS.BAG IV ONE ×2 (09:05→10:05)
[2025-02-27 09:06] LABS: CHLORIDE 103 mmol/L (98-107); SODIUM 135 mmol/L (136-145)
[2025-02-27 09:09] LABS: GLUCOSE,RANDOM 125 mg/dL (74-106)
[2025-02-27 09:10] LABS: ALBUMIN 3.3 g/dl (3.4-5.0); BLOOD UREA NITROGEN 61.3 mg/dL (7-18); CALCIUM 9.1 mg/dL (8.5-10.1); CO2 20 mmol/L (21-32); MAGNESIUM 2.4 mg/dL (1.8-2.4)
[2025-02-27 09:12] LABS: PHOSPHOROUS 6.6 mg/dL (2.5-4.9); SGOT/AST 22 U/L (15-37); SGPT/ALT 10 U/L (13-61)
[2025-02-27 09:13] LABS: BILIRUBIN,TOTAL 0.5 mg/dL (0.2-1); TOT PROT 7.4 g/dl (6.4-8.2)
[2025-02-27 09:14] LABS: ALK PHOS 117 U/L (45-117)
[2025-02-27 09:15] LABS: ANION GAP 13 mmol/L (4-13); CREATININE 9.8 mg/dL (0.55-1.3); LACTIC ACID 2.2 mmol/L (0.4-2.0); N-TERMINAL BNP 10918.9 pg/ml (5-450); POTASSIUM 6.4 mmol/L (3.5-5.1)
[2025-02-27] MEDS ORDERED: VANCOMYCIN HCL 1,500 MG in DEXTROSE 5%-WATER - 500 ML IVPB ONE (09:39)
[2025-02-27] MEDS ORDERED: PIPERACILLIN/TAZOB 2.25 GM 2.25 GM/50 ML BAG IVPB ONE (09:51)
[2025-02-27 09:55] LABS: CHLORIDE 101 mmol/L (98-107); SODIUM 135 mmol/L (136-145)
[2025-02-27 09:58] LABS: ALBUMIN 3.4 g/dl (3.4-5.0); BLOOD UREA NITROGEN 62.6 mg/dL (7-18); CALCIUM 9.3 mg/dL (8.5-10.1); CO2 24 mmol/L (21-32); GLUCOSE,RANDOM 126 mg/dL (74-106)
[2025-02-27 10:00] LABS: ANION GAP 10 mmol/L (4-13); POTASSIUM 6.7 mmol/L (3.5-5.1)
[2025-02-27 10:01] LABS: SGOT/AST 13 U/L (15-37); SGPT/ALT 9 U/L (13-61)
[2025-02-27 10:03] LABS: BILIRUBIN,TOTAL 0.4 mg/dL (0.2-1); TOT PROT 7.4 g/dl (6.4-8.2)
[2025-02-27 10:04] LABS: ALK PHOS 118 U/L (45-117)
[2025-02-27] MEDS: PIPERACILLIN/TAZOB 2.25 GM 2.25 GM in DEXTROSE 5%-WATER - 50 ML IVPB ONE (10:06)
[2025-02-27 10:23] LABS: CREATININE 10.1 mg/dL (0.55-1.3)
[2025-02-27] MEDS ORDERED: CALCIUM GLUC IN NACL, ISO-OSM 1 GM/50 ML BAG IVPB ONE (10:30)
[2025-02-27] MEDS ORDERED: DEXTROSE 50%-WATER 25 GM/50 ML DISP.SYRIN ONE (10:30)
[2025-02-27] MEDS ORDERED: MIDODRINE HCL 5 MG TABLET ONE (10:30)
[2025-02-27] MEDS ORDERED: ALBUTEROL SO4 0.083% IH SOL 2.5 MG/3 ML VIAL.NEB. NEB ONE (10:31)
[2025-02-27] MEDS ORDERED: INSULIN REGULAR HUMAN 100 UNITS/ML *VIAL ONE (10:31)
[2025-02-27] MEDS: ALBUTEROL SO4 0.083% IH SOL 2.5 MG/3 ML VIAL.NEB. NEB ONE (10:51)
[2025-02-27] MEDS: CALCIUM GLUCONATE 10% - 1,000 MG/10 ML VIAL IVPB ONE (10:51)
[2025-02-27] MEDS: DEXTROSE 50%-WATER - 25 GM/50 ML VIAL IVPUSH ONE (10:51)
[2025-02-27] MEDS: INSULIN REGULAR HUMAN 100 UNITS/ML *VIAL IVPUSH ONE ×2 (10:51→10:52)
[2025-02-27] MEDS: MIDODRINE HCL 5 MG TABLET PO ONE (10:51)
[2025-02-27] MEDS ORDERED: VANCOMYCIN/WATER 1250 MG 1,250 MG/250 ML BAG IVPB ONE (11:35)
[2025-02-27 14:31] LABS: HCV DIAGNOSTIC IN-HOUSE W/RFLX NON-REACTIVE (NONREACTIVE)
[2025-02-27] MEDS: METOPROLOL TARTRATE 25 MG TABLET (FP) PO SCH (17:52)
[2025-02-27] MEDS ORDERED: PIPERACILLIN/TAZOB 2.25 GM 2.25 GM in DEXTROSE 5%-WATER - 50 ML IVPB SCH (18:00)
[2025-02-27] MEDS: MIDODRINE HCL 5 MG TABLET PO SCH (19:01)
[2025-02-27] MEDS: PIPERACILLIN/TAZOB 2.25 GM 2.25 GM/50 ML BAG IVPB SCH (19:38)
[2025-02-27] MEDS: ATORVASTATIN CA 20 MG TABLET (FP) PO SCH (22:30)
[2025-02-27] MEDS: APIXABAN 5 MG TABLET PO SCH (22:30)
[2025-02-28] MEDS: glipiZIDE 5 MG TABLET (FP) PO SCH (06:20)
[2025-02-28 07:04] LABS: POTASSIUM 4.9 mmol/L (3.5-5.1)
[2025-02-28 07:24] LABS: CALCIUM 8.7 mg/dL (8.5-10.1)
[2025-02-28 07:30] LABS: BILIRUBIN,TOTAL 0.5 mg/dL (0.2-1); TOT PROT 6.6 g/dl (6.4-8.2)
[2025-02-28 07:52] LABS: BLOOD UREA NITROGEN 28.6 mg/dL (7-18)
[2025-02-28] MEDS ORDERED: SODIUM CHLORIDE 250 ML IV PRN (15:19)
[2025-02-28] MEDS: COLLAGENASE CLOSTRIDIUM HIST. 30 GRAMS TUBE TP SCH (18:33)
[2025-03-01 07:28] LABS: HEMOGLOBIN 12.9 g/dL (13.7-17.5); MCHC 31.5 g/dl (32.3-36.5); MEAN CELL VOLUME 110.2 fl (79.0-92.2); MEAN PLT VOLUME 10.5 fl (9.4-12.4); PLATELET COUNT 102 x10^3/uL (163-337); RDW 17.2 % (12.2-16.6)
[2025-03-01 12:57] VITALS: RESP 18
[2025-03-01 13:04] VITALS: TEMP 98
[2025-03-01 19:42] VITALS: BP 109/52; PULSE 92
== END 2025-03-01 20:25 | disposition home or self-care (01) | DRG 638 ==
LOC: JER 06:49 → JERBED 09:59 → J4S 16:27
PROVIDERS: ADMIT Internal Medicine; ATTEND Internal Medicine
PROC: 5A1D70Z Performance of Urinary Filtration, Intermittent, Less than 6 Hours Per Day (ICD-10-PCS; principal; 2025-02-27)
DX: E11.621 Type 2 diabetes mellitus with foot ulcer (principal); E87.20 Acidosis, unspecified; I13.2 Hypertensive heart and chronic kidney disease with heart failure and with stage 5 chronic kidney disease, or end stage renal disease; L97.518 Non-pressure chronic ulcer of other part of right foot with other specified severity; I50.22 Chronic systolic (congestive) heart failure; E78.5 Hyperlipidemia, unspecified; Z79.01 Long term (current) use of anticoagulants; E11.22 Type 2 diabetes mellitus with diabetic chronic kidney disease; N18.6 End stage renal disease; Z99.2 Dependence on renal dialysis; N40.0 Benign prostatic hyperplasia without lower urinary tract symptoms; I50.9 Heart failure, unspecified; E87.5 Hyperkalemia; D53.9 Nutritional anemia, unspecified; I48.0 Paroxysmal atrial fibrillation; D69.6 Thrombocytopenia, unspecified
CPT/HCPCS: 0241U-QW; 36415; 71045-TC-FY; 73630-TC-RT-FY; 80053; 82803; 82962; 83605; 83735; 83880; 84100; 85025; 85027; 85610; 85730; 86140; 86803; 86850; 86900; 86901; 87040; 87070; 87205; 87340; 93005; 93010; 99291; J0131

== ENCOUNTER 2025-03-05 08:15 | Inpatient (IN) | payer OTHER ==
[2025-03-05 08:29] VITALS: BMI 27.2
[2025-03-05 09:31] LABS: ABSOLUTE IMMATURE GRANULOCYTES 0.04 x10^3/uL (0.0-0.031); BASOPHILS # 0.07 x10^3/uL (0.01-0.08); EOSINOPHIL % 0.9 % (0.8-7.0); EOSINOPHILS # 0.12 x10^3/uL (0.04-0.54); HEMATOCRIT 38.7 % (40.1-51.0); HEMOGLOBIN 11.8 g/dL (13.7-17.5); MCHC 30.5 g/dl (32.3-36.5); MEAN CELL VOLUME 110.9 fl (79.0-92.2); MEAN PLT VOLUME 9.6 fl (9.4-12.4); MONOCYTE % 10.2 % (5.3-12.2); PLATELET COUNT 152 x10^3/uL (163-337)
[2025-03-05 09:38] LABS: INR 1.38 (0.83-1.09)
[2025-03-05 10:02] LABS: CHLORIDE 104 mmol/L (98-107); SODIUM 138 mmol/L (136-145)
[2025-03-05 10:04] LABS: CALCIUM 8.8 mg/dL (8.5-10.1)
[2025-03-05 10:05] LABS: ALBUMIN 3.2 g/dl (3.4-5.0); BLOOD UREA NITROGEN 37.1 mg/dL (7-18); CO2 26 mmol/L (21-32); GLUCOSE,RANDOM 136 mg/dL (74-106)
[2025-03-05 10:08] LABS: CREATININE 6.5 mg/dL (0.55-1.3); SGOT/AST 43 U/L (15-37); SGPT/ALT 14 U/L (13-61)
[2025-03-05 10:09] LABS: BILIRUBIN,TOTAL 0.5 mg/dL (0.2-1); TOT PROT 7.2 g/dl (6.4-8.2)
[2025-03-05 10:10] LABS: ALK PHOS 94 U/L (45-117); ANION GAP 9 mmol/L (4-13); POTASSIUM 6.4 mmol/L (3.5-5.1)
[2025-03-05] MEDS ORDERED: SODIUM CHLORIDE 250 ML IV PRN (10:13)
[2025-03-05 10:59] LABS: CHLORIDE 104 mmol/L (98-107); SODIUM 137 mmol/L (136-145)
[2025-03-05 11:01] LABS: CALCIUM 9.1 mg/dL (8.5-10.1); CO2 25 mmol/L (21-32)
[2025-03-05 11:02] LABS: BLOOD UREA NITROGEN 37.3 mg/dL (7-18); GLUCOSE,RANDOM 139 mg/dL (74-106)
[2025-03-05 11:05] LABS: CREATININE 6.4 mg/dL (0.55-1.3)
[2025-03-05 11:39] LABS: ANION GAP 8 mmol/L (4-13); POTASSIUM 6.2 mmol/L (3.5-5.1)
[2025-03-05] MEDS ORDERED: DOCUSATE SODIUM 100 MG CAPSULE (FP) PO PRN (14:26)
[2025-03-05] MEDS: MIDODRINE HCL 5 MG TABLET PO SCH (17:33)
[2025-03-05] MEDS: INSULIN ASPART SLIDING SCALE (NOVOLOG) 1 VIAL SQ SCH (17:51)
[2025-03-05] MEDS: SEVELAMER CARBONATE 800 MG TAB (FP) PO SCH (22:55)
[2025-03-06 08:07] LABS: ABSOLUTE IMMATURE GRANULOCYTES 0.01 x10^3/uL (0.0-0.031); BASOPHILS # 0.06 x10^3/uL (0.01-0.08); EOSINOPHIL % 1.2 % (0.8-7.0); EOSINOPHILS # 0.08 x10^3/uL (0.04-0.54); HEMATOCRIT 35.5 % (40.1-51.0); HEMOGLOBIN 10.9 g/dL (13.7-17.5); MCHC 30.7 g/dl (32.3-36.5); MEAN CELL VOLUME 108.6 fl (79.0-92.2); MEAN PLT VOLUME 9.7 fl (9.4-12.4); MONOCYTE # 0.81 x10^3/uL (0.30-0.82); PLATELET COUNT 144 x10^3/uL (163-337); RDW 16.7 % (12.2-16.6)
[2025-03-06 08:27] LABS: POTASSIUM 4.1 mmol/L (3.5-5.1)
[2025-03-06 08:30] LABS: ALBUMIN 3.3 g/dl (3.4-5.0); BLOOD UREA NITROGEN 18.8 mg/dL (7-18); CALCIUM 8.8 mg/dL (8.5-10.1)
[2025-03-06 08:33] LABS: CREATININE 4.5 mg/dL (0.55-1.3)
[2025-03-06 08:35] LABS: BILIRUBIN,TOTAL 0.5 mg/dL (0.2-1); TOT PROT 6.7 g/dl (6.4-8.2)
[2025-03-06 09:07] LABS: ERYTHROCYTE SEDIMENTATION RATE 20 mm/hr (0-20)
[2025-03-06] MEDS: CINACALCET HCL 30 MG TAB (FP) PO SCH (10:59)
[2025-03-06] MEDS: DUTASTERIDE 0.5 MG CAP (FP) PO SCH (10:59)
[2025-03-06] MEDS: PANTOPRAZOLE 40 MG TABLET PO SCH (10:59)
[2025-03-06] MEDS: MIDODRINE HCL 5 MG TABLET PO SCH ×2 (11:03→17:56)
[2025-03-06] MEDS ORDERED: LACTATED RINGERS SOLUTION 1,000 ML IV SCH ×2 (15:15→16:48)
[2025-03-06] MEDS: LIDOCAINE HCL 1%, 10 MG/ML (50 mL VIAL) INF ONE ×2 (16:18)
[2025-03-06] MEDS: BUPIVACAINE HCL/PF 0.5% (5MG/ML) 10 ML VIAL IJ ONE ×2 (16:18)
[2025-03-06] MEDS ORDERED: DOCUSATE SODIUM 100 MG CAPSULE (FP) PO PRN (16:48)
[2025-03-06] MEDS: SEVELAMER CARBONATE 800 MG TAB (FP) PO SCH (17:56)
[2025-03-06] MEDS: ERTAPENEM SODIUM 1 GM in SODIUM CHLORIDE 50 ML IVPB ONE (18:40)
[2025-03-06] MEDS: VANCOMYCIN/WATER FOR INJ (PEG) 1,000 MG/200 ML BAG IVPB ONE (19:43)
[2025-03-06] MEDS: INSULIN ASPART SLIDING SCALE (NOVOLOG) 1 VIAL SQ SCH (22:12)
[2025-03-07 08:13] LABS: ABSOLUTE IMMATURE GRANULOCYTES 0.05 x10^3/uL (0.0-0.031); BASOPHILS # 0.06 x10^3/uL (0.01-0.08); EOSINOPHIL % 0.4 % (0.8-7.0); EOSINOPHILS # 0.04 x10^3/uL (0.04-0.54); HEMATOCRIT 40.6 % (40.1-51.0); HEMOGLOBIN 12.4 g/dL (13.7-17.5); MCHC 30.5 g/dl (32.3-36.5); MEAN CELL VOLUME 110.6 fl (79.0-92.2); MEAN PLT VOLUME 9.1 fl (9.4-12.4); MONOCYTE # 1.07 x10^3/uL (0.30-0.82); MONOCYTE % 11.1 % (5.3-12.2); PLATELET COUNT 160 x10^3/uL (163-337); RDW 16.9 % (12.2-16.6)
[2025-03-07 08:36] LABS: POTASSIUM 5.7 mmol/L (3.5-5.1)
[2025-03-07 08:42] LABS: CALCIUM 9.2 mg/dL (8.5-10.1)
[2025-03-07 08:43] LABS: ALBUMIN 3.4 g/dl (3.4-5.0); BLOOD UREA NITROGEN 32.4 mg/dL (7-18)
[2025-03-07 08:46] LABS: CREATININE 6.3 mg/dL (0.55-1.3)
[2025-03-07 08:47] LABS: BILIRUBIN,TOTAL 0.6 mg/dL (0.2-1); TOT PROT 7.1 g/dl (6.4-8.2)
[2025-03-07] MEDS: DUTASTERIDE 0.5 MG CAP (FP) PO SCH (11:11)
[2025-03-07] MEDS: PANTOPRAZOLE 40 MG TABLET PO SCH (11:11)
[2025-03-07] MEDS: CINACALCET HCL 30 MG TAB (FP) PO SCH (11:11)
[2025-03-07] MEDS ORDERED: SODIUM CHLORIDE 250 ML IV PRN (11:37)
[2025-03-07] MEDS: ALBUMIN HUMAN 25% 12.5 GM/50 ML VIAL IV SCH (13:15)
[2025-03-08 07:00] VITALS: BP 91/79; PULSE 102; RESP 18; TEMP 98.8
[2025-03-08 07:17] LABS: ABSOLUTE IMMATURE GRANULOCYTES 0.03 x10^3/uL (0.0-0.031); BASOPHILS # 0.07 x10^3/uL (0.01-0.08); EOSINOPHIL % 0.5 % (0.8-7.0); EOSINOPHILS # 0.04 x10^3/uL (0.04-0.54); HEMATOCRIT 43.1 % (40.1-51.0); HEMOGLOBIN 12.6 g/dL (13.7-17.5); MCHC 29.2 g/dl (32.3-36.5); MEAN CELL VOLUME 113.4 fl (79.0-92.2); MONOCYTE # 1.28 x10^3/uL (0.30-0.82); MONOCYTE % 15.4 % (5.3-12.2); PLATELET COUNT 127 x10^3/uL (163-337); RDW 17.1 % (12.2-16.6)
[2025-03-08 07:42] LABS: POTASSIUM 4.2 mmol/L (3.5-5.1)
[2025-03-08 07:46] LABS: ALBUMIN 3.4 g/dl (3.4-5.0); BLOOD UREA NITROGEN 18.5 mg/dL (7-18); CALCIUM 9.6 mg/dL (8.5-10.1)
[2025-03-08 07:49] LABS: CREATININE 4.2 mg/dL (0.55-1.3)
[2025-03-08 07:51] LABS: BILIRUBIN,TOTAL 0.7 mg/dL (0.2-1)
[2025-03-08] MEDS: SODIUM ZIRCONIUM CYCLOSILICATE (LOKELMA) 5 GM PACKET PO SCH (08:59)
== END 2025-03-08 13:03 | disposition home health service (06) | DRG 988 ==
LOC: JER 08:15 → JERBED 10:44 → J7W 12:19 → OBSVTOIN 13:11 → J7W 13:54
PROVIDERS: ADMIT Internal Medicine; ATTEND Internal Medicine
PROC: 5A1D70Z Performance of Urinary Filtration, Intermittent, Less than 6 Hours Per Day (ICD-10-PCS; 2025-03-05)
PROC: 0QBQ0ZX Excision of Right Toe Phalanx, Open Approach, Diagnostic (ICD-10-PCS; principal; 2025-03-06 16:30)
DX: E11.69 Type 2 diabetes mellitus with other specified complication (principal); I13.2 Hypertensive heart and chronic kidney disease with heart failure and with stage 5 chronic kidney disease, or end stage renal disease; I50.22 Chronic systolic (congestive) heart failure; M86.8X7 Other osteomyelitis, ankle and foot; E78.5 Hyperlipidemia, unspecified; Z79.01 Long term (current) use of anticoagulants; E11.22 Type 2 diabetes mellitus with diabetic chronic kidney disease; N18.6 End stage renal disease; Z99.2 Dependence on renal dialysis; N40.0 Benign prostatic hyperplasia without lower urinary tract symptoms; D64.9 Anemia, unspecified; E87.5 Hyperkalemia; I25.10 Atherosclerotic heart disease of native coronary artery without angina pectoris; I25.2 Old myocardial infarction; E11.51 Type 2 diabetes mellitus with diabetic peripheral angiopathy without gangrene; I48.0 Paroxysmal atrial fibrillation; L97.519 Non-pressure chronic ulcer of other part of right foot with unspecified severity
CPT/HCPCS: 36415; 71045-TC-FY; 73630-TC-RT-FY; 80048; 80053; 82962; 83036; 85025; 85610; 85651; 86140; 86850; 86900; 86901; 87070; 87075; 87205; 93005; 93010; 94760; 99285-25; G0277; G0378; P9047